=== PATIENT | female | born 1995 | race Caucasian/White ===

== ENCOUNTER 2021-08-17 11:05 | Emergency (ER) | payer OTHER, SELFPAY ==
--- NOTE | 2021-08-17 11:17 | ED.FEMALEGU ---
HPI - Female Genitourinary General Chief complaint: Urogenital-Female Stated complaint: uti symptoms Time Seen by Provider: 08/17/21 11:10 Source: patient and RN notes reviewed History of Present Illness HPI Narrative: Patient is a 25-year-old female who presents the urgent care with complaints of burning, frequency and urgency of urination. Patient states that started approximately 3 to 4 days ago. Denies of any recurrent UTIs. Denies of any blood in the urine, fever, vomiting, or abdominal pain. Patient states she has had some nausea this morning. States that she does have an IUD. Patient has not taken anything [id number] for her symptoms. No other acute complaints. No acute distress noted. Patient aware of the plan of care. Some parts of this dictation were generated by voice recognition software and may contain typographical and/or grammatical inaccuracies. Related Data Allergies Allergy/AdvReac Type Severity Reaction Status Date / Time amoxicillin Allergy Unknown Skin Verified 08/17/21 11:24 Reaction Penicillins Allergy Unknown rash Verified 08/17/21 11:24 AMOXICILLIN TRIHYDRATE Allergy Unknown NKA Uncoded 08/17/21 11:24 Review of Systems Review of Systems: CONSTITUTIONAL: Denies fever, chills, or sweats. EYES: Denies visual changes, redness, or discharge. ENT: Denies rhinorrhea, congestion, sore throat, or otalgia. CARDIOVASCULAR: Denies chest pain, palpitations, or edema. RESPIRATORY: Denies cough or dyspnea. GASTROINTESTINAL: Denies abdominal pain, nausea, vomiting, or diarrhea. GENITOURINARY: Reports urgency, frequency and dysuria SKIN: Denies rash or itching. MUSCULOSKELETAL: Denies back pain, joint pain, or myalgia. NEUROLOGIC: Denies headache, numbness, or weakness. All other systems reviewed are negative, except as documented in HPI. [facility] Past Medical History Medical History (Updated 08/17/21 @ 11:35 by GERMAN Rosa) Ulcerative colitis Family History Family History Other Depression Hypertension Malignant neoplasm of prostate Social History Social History Smoking packs per day: 0.5 Smoking cigarettes per day: 10.0 Smoking status: Current every day smoker Tobacco type: cigarettes Alcohol intake: current Comments At the time of my signature, I reviewed and agree with the nursing past medical, surgical, social, and family history. There is no relevant family history pertinent to the patient complaint. Exam Narrative: GENERAL: This is a well-nourished, well-developed patient, in no apparent distress. HEAD: normocephalic, atraumatic. EYES: PERRL. Sclera clear/white. Vision is grossly intact. EARS: External ears normal NOSE: External nose normal with no obvious nasal discharge, nares without redness, no rhinorrhea. THROAT: Mucous membranes moist NECK: Neck supple CARDIOVASCULAR: Regular rate and rhythm without murmurs, gallops, or rubs. RESPIRATORY: Clear to auscultation. Breath sounds equal bilaterally. No wheezes, rales, or rhonchi. GASTROINTESTINAL: Abdomen soft, non-tender, nondistended. SKIN: warm, intact with no suspicious lesions or rash, good texture and turgor. NEURO: awake, alert, and oriented to person, place and time. There were no obvious focal neurologic abnormalities. EXTREMITIES: No clubbing, cyanosis, or edema. BACK: Negative bilateral CVA tenderness Course Course Level of Care: Express Care Visit Vital Signs Vital signs: Vital Signs Temperature 97.4 F L 08/17/21 11:18 Pulse Rate 98 08/17/21 11:18 Respiratory Rate 18 08/17/21 11:18 Blood Pressure 129/90 08/17/21 11:18 Pulse Oximetry 100 08/17/21 11:18 Temperature 97.4 F L 08/17/21 11:18 Pulse Rate 98 08/17/21 11:18 Respiratory Rate 18 08/17/21 11:18 Blood Pressure 129/90 08/17/21 11:18 Pulse Oximetry 100 08/17/21 11:18 Reviewed M
[2021-08-17 11:18] VITALS: BP 129/90; PULSE 98; RESP 18; TEMP 36.3; O2SAT 100
== END 2021-08-17 11:36 | disposition home or self-care (01) ==
PROVIDERS: Emergency Provider Nurse Practitioner Family; PCP Family Medicine
DX: N39.0 Urinary tract infection, site not specified (principal); F17.210 Nicotine dependence, cigarettes, uncomplicated
CPT/HCPCS: 81003; 87077; 87086; 87186; 99213; G0463

== ENCOUNTER 2021-11-27 15:59 | Emergency (ER) | payer OTHER, SELFPAY ==
--- NOTE | ~2021-11-27 | XR_ITS ---
EXAMINATION: XR chest 2V DATE: 11/27/2021 17:29 INDICATION: Cough and shortness of breath TECHNIQUE: PA and lateral views of the chest are obtained. COMPARISON: 01/13/2014 FINDINGS: The lungs are free of acute opacities. No pleural effusion or pneumothorax. The cardiomedia stinal silhouette is normal. There is mild thoracic spondylosis. IMPRESSION: 1. No acute cardiopulmonary abnormality. Reviewed, dictated and finalized at location A.
[2021-11-27 16:17] VITALS: BP 136/73; PULSE 86; RESP 20; TEMP 36.3; O2SAT 100
[2021-11-27 17:12] LABS: Glucose Point of Care 99 mg/dl (65-105)
--- NOTE | 2021-11-27 17:27 | ED.URI ---
HPI - URI/Sore Throat General Chief Complaint: Upper Respiratory Infection Stated Complaint: hard to breathe, sore throat, feel like pasing out Time Seen by Provider: 11/27/21 16:39 History of Present Illness HPI Narrative: 26-year-old female presented the emergency room for multiple complaints. Patient states for the past 3 days she has had difficulty breathing, intermittent productive cough, no sore throat, and occasionally feels like she is going to pass out. Patient denies any sinus congestion, postnasal drip or fevers. Patient states she recently stopped smoking, to replace it with vaping. Related Data Allergies Allergy/AdvReac Type Severity Reaction Status Date / Time amoxicillin Allergy Unknown Skin Verified 08/17/21 11:24 Reaction Penicillins Allergy Unknown rash Verified 08/17/21 11:24 AMOXICILLIN TRIHYDRATE Allergy Unknown NKA Uncoded 08/17/21 11:24 Review of Systems Review of Systems: CONSTITUTIONAL: Denies fever, chills, or sweats. EYES: Denies visual changes, redness, or discharge. ENT: Reports sore throat CARDIOVASCULAR: Denies chest pain, palpitations, or edema. RESPIRATORY: Reports dyspnea. GASTROINTESTINAL: Denies abdominal pain, nausea, vomiting, or diarrhea. GENITOURINARY: Denies dysuria or hematuria. SKIN: Denies rash or itching. MUSCULOSKELETAL: Denies back pain, joint pain, or myalgia. NEUROLOGIC: Denies headache, numbness, dizziness, or weakness. PSYCHIATRIC: Denies anxiety or depression. [facility] Past Medical History Medical History (Updated 11/27/21 @ 18:01 by Tio Pearce APRN) Ulcerative colitis Family History Family History Other Depression Hypertension Malignant neoplasm of prostate Social History Social History Smoking packs per day: 0.5 Smoking cigarettes per day: 10.0 Smoking status: Current every day smoker Tobacco type: cigarettes Alcohol intake: current Exam Narrative: GENERAL: Well-appearing, well-nourished, no physical limitations, and in no acute distress. HEAD: Normocephalic, atraumatic. EYES: Conjunctivae normal, PERRLA and EOMI. ENT: External nose normal, Nares clear, no rhinorrhea or epistaxis. Mucous membranes moist. Oropharynx without tonsillar hypertrophy exudate or other lesions. External ears normal, bilateral TMs normal bilaterally NECK: Supple. No adenopathy or masses. CHEST: Clear to auscultation. No respiratory distress. No wheezes rales or rhonchi. No tenderness. HEART: Regular rate and rhythm. No murmur heard. Normal peripheral pulses EXTREMITIES: Normal range of motion. No edema. No clubbing or cyanosis SKIN: Warm, dry, no rash. No noted wounds NEURO: No focal deficits. Alert and oriented x3. MAEW. CN's II-XI intact bilaterally, normal gait PSYCH: Cooperative. Normal mood and affect. Appears anxious Course Vital Signs Vital signs: Vital Signs Temperature 36.3 C L 11/27/21 16:17 Pulse Rate 86 11/27/21 16:17 Respiratory Rate 20 11/27/21 16:17 Blood Pressure 136/73 11/27/21 16:17 Pulse Oximetry 100 11/27/21 16:17 Oxygen Delivery Room Air 11/27/21 16:17 Temperature 36.3 C L 11/27/21 16:17 Pulse Rate 86 11/27/21 16:17 Respiratory Rate 20 11/27/21 16:17 Blood Pressure 136/73 11/27/21 16:17 Pulse Oximetry 100 11/27/21 16:17 Oxygen Delivery Room Air 11/27/21 18:02 MDM - URI/Sore Throat Lab Data Labs: Lab Results 11/27/21 11/27/21 Range/Units 16:58 17:10 POC Capillary Glucose 99 (65-105) mg/dl SARS-CoV-2 RNA (RT-PCR) Negative Discharge Plan Discharge Clinical Impression: Upper respiratory infection, Viral infection Patient Disposition: Home, Self-Care Condition: Stable Instructions: Antibiotic Form, Viral Syndrome (ED) Additional Instructions: Tylenol and ibuprofen as needed. I recommend taking pseudoephedrine for sinus congestion Muc
[2021-11-27 17:40] LABS: SARS-CoV-2 RNA PCR Negative
== END 2021-11-27 18:27 | disposition home or self-care (01) ==
LOC: ANHED 18:16
PROVIDERS: Emergency Provider Nurse Practitioner Family; PCP Family Medicine
DX: J06.9 Acute upper respiratory infection, unspecified (principal); Z20.822 Contact with and (suspected) exposure to COVID-19; K51.90 Ulcerative colitis, unspecified, without complications; F17.290 Nicotine dependence, other tobacco product, uncomplicated
CPT/HCPCS: 71046; 82948; 96372; 99283; C9803; J1100; U0003; U0005

== ENCOUNTER 2022-06-24 09:00 | Outpatient (NON) | payer OTHER, SELFPAY | END 2022-06-24 09:01 | disposition home or self-care (01) | PROVIDERS: PCP Family Medicine; Visit Provider Internal Medicine Gastroenterology | DX: K51.90 Ulcerative colitis, unspecified, without complications (principal) | CPT/HCPCS: 88305 ==

== ENCOUNTER 2022-06-24 12:27 | Day surgery (SDC) | payer OTHER, SELFPAY ==
[2022-06-06 12:03] VITALS: BMI 36.5
[2022-06-12 10:51] VITALS: BMI 36.9
--- NOTE | 2022-06-12 10:54 | PC.NURSE ---
PT STATES SHE TAKES HER DAILY MEDICATIONS AT 0300 WITH FOOD. PT STATE SHE WILL NOT TAKE ANY MEDS DAY OF PROCEDURE DUE TO BEING WITHOUT FOOD WITH COLON PREP.
--- NOTE | 2022-06-24 13:26 | WPDANESEPPF ---
Anes - Initial Pre Proc Eval Procedure: Operation Date: 06/24/22 14:30 Proposed Procedures p Diagnostic Colonoscopy - Alex Phillips MD Date/Time: 06/24/22 13:26 Surgeon: Alex Phillips MD Pre Op Diagnosis: Ulcerative Colitis and Rectal Bleeding Patient Data Age: 26 Gender: F Height: 1.7 m Weight: 107 kg Allergies Allergy/AdvReac Type Severity Reaction Status Date / Time amoxicillin Allergy Unknown Rash Verified 06/12/22 10:36 Penicillins Allergy Unknown rash Verified 06/12/22 10:36 Home Medications Medication Instructions Recorded Confirmed Type levonorgestrel 21 mcg/24 hours (8 1 device intrauterine ONCE 05/10/22 06/12/22 History yrs) 52 mg intrauterine device (Mirena) azathioprine 50 mg tablet 150 mg PO DAILY #90 tabs 06/05/22 06/12/22 Rx prednisone 5 mg tablet 20 mg PO DAILY #70 tabs 06/05/22 06/12/22 Rx sodium,potassium,mag sulfates 17.5 See Rx Instructions PO .COMPLEX 06/06/22 Rx gram-3.13 gram-1.6 gram oral soln #354 mL (Suprep Bowel Prep Kit) esomeprazole magnesium 20 mg 20 mg PO DAILY 06/12/22 06/12/22 History capsule,delayed release (Nexium) multivitamin with minerals-folic 1 tablet PO DAILY 06/12/22 06/12/22 History acid 0.4 mg tablet Patient hx anesthesia problems: none Family hx anesthesia problems: none Results Review: All pre-operative results and documents have been reviewed as part of the pre-operative evaluation. [facility] Past Medical History Medical History (Updated 06/24/22 @ 13:28 by Champ Daniel MD) Obesity Smoker Ulcerative colitis Family History Family History Other Depression Hypertension Malignant neoplasm of prostate Social History Social History (Updated 06/05/22 @ 14:48 by Gertrudis Jolly CMA) Smoking packs per day: 1 Smoking cigarettes per day: 20.0 Years smoked: 6 Smoking pack-years: 6.00 Smoking status: Current every day smoker Tobacco type: cigarettes and e-cigarettes/vaping Alcohol intake: never Substance use: never Substance use type: does not use Lack of Transportation: No Lack of Food: Never True Current Housing: I Have Housing Concerned About Future Housing: No Difficulty Paying Gas/Electric Bills: No Difficulty Paying for Meds: No Currently Unemployed: YES Education: High School Diploma/GED Difficulty w/ Childcare or Family Care: No Living arrangements: with family Spiritual care concerns: No Anes - Eval Final PreProcedure Day of Procedure 06/24/22 13:26 Patient weight: obese Heart: regular rate and rhythm Lungs: clear to auscultation and normal air movement Airway: Mallampati scale class II Neurological: alert and oriented Last oral intake: >/= 8 hours ASA classification: III Emergent: no Anesthetic plan: proceed Anesthesia type and monitoring: general GIVS Results Review: All pre-operative results and documents have been reviewed as part of the pre-operative evaluation. Informed Consent: The patient's anesthetic plan and its attendant risks and benefits were discussed with the patient/family/POA. Questions were solicited and answers provided to the satisfaction of the patient/family/POA.
[2022-06-24 13:33] VITALS: BP 123/76; PULSE 76; RESP 18; TEMP 36.7; O2SAT 100
[2022-06-24] MEDS: LACTATED RINGERS 1,000 ML 150 ML IV CONT (13:43)
--- NOTE | 2022-06-24 13:49 | WPDHPUPDATE1 ---
History and Physical Update Update Date/Time: 06/24/22 13:49 History and Physical has been reviewed, including an updated exam of the patient. There are NO changes in the patient's condition. Risks, benefits, and alternatives have been discussed and questions answered. Patient agrees to proceed with procedure. patient notes no additional bleeding since starting prednisone. She did take a suppository once [id number] Anusol that seemed to help. She has not yet obtained any lab work that was previously recommended.
[2022-06-24 15:59] VITALS: BP 99/61; PULSE 83; RESP 20; O2SAT 100
--- NOTE | 2022-06-24 16:06 | WPDANESPN ---
Anes - Prog Note Post-Op Date/Time: 06/24/22 16:06 Cardiovascular status: normal Respiratory status: normal Airway patency: baseline Mental status: baseline Post-Op hydration status: normal Vital Signs: Last Vital Signs Temp 36.7 C 06/24/22 13:33 Pulse 76 06/24/22 13:33 Resp 18 06/24/22 13:33 BP 123/76 06/24/22 13:33 Pulse Ox 100 06/24/22 13:33 O2 Del Method Room Air 06/24/22 13:33 Pain Score (VAS): 0 I/O: Intake & Output 06/24/22 06/24/22 06/24/22 07:59 15:59 23:59 Intake Total 500 Balance 500 Post-procedural complaints: none Patient Feedback: Patient satisfied with anesthetic care.
[2022-06-24 16:09] VITALS: BP 126/65; PULSE 74; RESP 20; O2SAT 100
[2022-06-24 16:19] VITALS: BP 109/73; PULSE 75; RESP 20; O2SAT 100
== END 2022-06-24 16:40 | disposition home or self-care (01) ==
PROVIDERS: PCP Family Medicine; Visit Provider Internal Medicine Gastroenterology
PROC: 0DJD8ZZ Inspection of Lower Intestinal Tract, Via Natural or Artificial Opening Endoscopic (ICD-10-PCS; CPT 45378; principal; 2022-06-24 14:30)
DX: K51.90 Ulcerative colitis, unspecified, without complications (principal)
CPT/HCPCS: 45380

== ENCOUNTER 2022-07-23 10:44 | Outpatient (CLI) | payer OTHER, SELFPAY ==
[2022-07-23 19:10] LABS: Basophils Percent Auto 0.8 % (0.2-1.2); Eosinophils Absolute Auto 0.1 K/mm3 (0-0.3); Eosinophils Percent Auto 2.7 % (0-4.4); Hematocrit 33.4 % (37.0-47.0); Hemoglobin 10.8 g/dL (12.0-15.0); Immature Granulocyte Absolute 0.02 K/mm3 (0.00-0.031); Immature Granulocyte Percent A 0.4 % (0-0.5); Lymphocytes Percent Auto 24.9 % (18.3-44.2); Mean Corpuscular HGB Conc 32.3 g/dl (32-36); Mean Corpuscular Hemoglobin 29.7 pg (26-34); Mean Corpuscular Volume 91.8 fl (80-100); Mean Platelet Volume 9.7 fl (7.4-10.4); Monocytes Absolute Auto 0.2 K/mm3 (0.1-0.6); Neutrophils Absolute Auto 3.5 K/mm3 (1.3-6.7); Neutrophils Percent Auto 67.2 % (45.5-73.1); Platelet Count Result 297 k/mm3 (150-375); Red Blood Count 3.64 M/mm3 (4.2-5.4); Red Cell Distribution Width 18.3 % (11.5-14.5); White Blood Count 5.2 K/mm3 (4.5-10.0)
[2022-07-23 19:28] LABS: Alanine Aminotransferase 19 U/L (6-35); Albumin Level 4.3 g/dL (3.5-5.1); Alkaline Phosphatase 63 U/L (38-126); Anion Gap 8 mmol/L (8-16); Aspartate Amino Transferase 26 U/L (14-36); Bilirubin,Total 0.7 mg/dL (0.2-1.3); Blood Urea Nitrogen 7 mg/dL (7-17); Carbon Dioxide 26 mmol/L (22-30); Chloride 104 mmol/L (98-107); Estimated Glomerular Filt Rate > 60; Glucose 84 mg/dL (65-110); Potassium 3.7 mmol/L (3.4-5.0); Sodium 138 mmol/L (137-145)
[2022-08-05 13:05] LABS: TPMT Activity 6
== END 2022-07-23 10:45 | disposition home or self-care (01) ==
LOC: ANHGOSHLAB 10:45
PROVIDERS: PCP Family Medicine; Visit Provider Internal Medicine Gastroenterology
DX: K63.89 Other specified diseases of intestine (principal)
CPT/HCPCS: 36415; 80053; 82657; 85025

== ENCOUNTER 2022-08-05 12:36 | Emergency (ER) | payer OTHER, SELFPAY ==
--- NOTE | 2022-08-05 12:40 | ED.URI ---
HPI - URI/Sore Throat General Chief Complaint: Upper Respiratory Infection Stated Complaint: sore throat,lt ear pain Time Seen by Provider: 08/05/22 13:10 Source: patient and RN notes reviewed Mode of arrival: ambulatory Limitations: no limitations History of Present Illness HPI Narrative: 26-year-old female presents concern for 3 day history of left earache, sore throat. She reports feels like her ear is full. She denies fever, aches, chills, sweats. She denies known sick contacts. She reports she took Tylenol without relief MD elicited complaint: sore throat Related Data Home Medications Medication Instructions Recorded Confirmed levonorgestrel 21 mcg/24 hours (8 1 device intrauterine ONCE 05/10/22 08/05/22 yrs) 52 mg intrauterine device (Mirena) esomeprazole magnesium 20 mg 20 mg PO DAILY 06/12/22 08/05/22 capsule,delayed release (Nexium) Allergies Allergy/AdvReac Type Severity Reaction Status Date / Time amoxicillin Allergy Unknown Rash Verified 08/05/22 12:43 Penicillins Allergy Unknown rash Verified 08/05/22 12:43 Review of Systems Review of Systems: CONSTITUTIONAL: Denies malaise, chills, sweats, or fever. EYES: Denies visual changes, redness, or discharge. ENT: Denies rhinorrhea, congestion, sinus pain. Reports otalgia and sore throat. CARDIOVASCULAR: Denies chest pain, palpitations, or edema. RESPIRATORY: Denies cough. Denies dyspnea. GASTROINTESTINAL: Denies abdominal pain, nausea, vomiting, diarrhea SKIN: Denies rash or itching. MUSCULOSKELETAL: Denies myalgia. NEUROLOGIC: Denies headache. All systems reviewed & are unremarkable except as noted in HPI and below PMFSH Past Medical History Medical History (Updated 08/05/22 @ 13:07 by Melina Saeed NP) Obesity Smoker Ulcerative colitis Family History Family History Other Depression Hypertension Malignant neoplasm of prostate Social History Social History (Updated 06/05/22 @ 14:48 by Gertrudis Jolly CMA) Smoking packs per day: 1 Smoking cigarettes per day: 20.0 Years smoked: 6 Smoking pack-years: 6.00 Smoking status: Current every day smoker Tobacco type: cigarettes and e-cigarettes/vaping Alcohol intake: never Substance use: never Substance use type: does not use Lack of Transportation: No Lack of Food: Never True Current Housing: I Have Housing Concerned About Future Housing: No Difficulty Paying Gas/Electric Bills: No Difficulty Paying for Meds: No Currently Unemployed: YES Education: High School Diploma/GED Difficulty w/ Childcare or Family Care: No Living arrangements: with family Spiritual care concerns: No Comments At time of signature, agree with nursing past medical, surgical, social and family history. There is no relevant family history pertinent to the presenting complaint Exam Narrative: GENERAL: Well-appearing, well-nourished, and in no acute distress. HEAD: Normocephalic EYES: PERRLA, conjunctivae clear ENT: Nares clear, postnasal discharge. Mucous membranes moist. TM pearly damon with dull light reflex bilaterally; no tragal tenderness. Oropharynx not erythematous without lesions. Tonsils not enlarged and without exudate, no drooling, no hoarseness, no trismus, uvula midline. NECK: Supple. No lymphadenopathy CHEST: Clear to auscultation, breath sounds equal. No wheezing, rhonchi, rales, or stridor. No respiratory distress, speaks in full sentences. HEART: Regular rate and rhythm. No murmur heard. SKIN: Warm, dry, no rash. NEURO: Alert and oriented x3. PSYCH: Normal mood and affect Course Course Emergency Course: Patient is aware of diagnosis, understands and agrees to treatment plan. Anticipatory guidance given. Patient agrees to follow-up as directed and is aware of reasons to seek care at the emergency department. Portions of this record may have been created with voice recognition software
[2022-08-05 12:42] VITALS: BP 118/70; PULSE 92; RESP 18; TEMP 36.7; O2SAT 100
== END 2022-08-05 13:12 | disposition home or self-care (01) ==
PROVIDERS: Emergency Provider Nurse Practitioner; PCP Family Medicine
DX: J06.9 Acute upper respiratory infection, unspecified (principal); F17.210 Nicotine dependence, cigarettes, uncomplicated; F17.290 Nicotine dependence, other tobacco product, uncomplicated; E66.9 Obesity, unspecified; Z68.36 Body mass index [BMI] 36.0-36.9, adult
CPT/HCPCS: 87081; 87880; 99213; G0463

== ENCOUNTER 2022-11-06 08:58 | Outpatient (CLI) | payer OTHER, SELFPAY ==
[2022-11-06 18:51] LABS: Basophils Percent Auto 0.8 % (0.2-1.2); Eosinophils Absolute Auto 0.4 K/mm3 (0-0.3); Eosinophils Percent Auto 7.5 % (0-4.4); Hematocrit 33.5 % (37.0-47.0); Immature Granulocyte Absolute 0.01 K/mm3 (0.00-0.031); Immature Granulocyte Percent A 0.2 % (0-0.5); Lymphocytes Absolute Auto 1.18 K/mm3 (0.9-3.2); Lymphocytes Percent Auto 23.3 % (18.3-44.2); Mean Corpuscular HGB Conc 32.8 g/dl (32-36); Mean Corpuscular Hemoglobin 34.3 pg (26-34); Mean Corpuscular Volume 104.4 fl (80-100); Mean Platelet Volume 9.9 fl (7.4-10.4); Monocytes Absolute Auto 0.2 K/mm3 (0.1-0.6); Monocytes Percent Auto 4.5 % (2.6-8.5); Neutrophils Absolute Auto 3.2 K/mm3 (1.3-6.7); Neutrophils Percent Auto 63.7 % (45.5-73.1); Platelet Count Result 290 k/mm3 (150-375); Red Blood Count 3.21 M/mm3 (4.2-5.4); Red Cell Distribution Width 13.2 % (11.5-14.5); White Blood Count 5.1 K/mm3 (4.5-10.0)
[2022-11-15 13:22] LABS: TPMT Activity 9
== END 2022-11-06 08:59 | disposition home or self-care (01) ==
LOC: ANHGOSHLAB 09:00
PROVIDERS: PCP Family Medicine; Visit Provider Internal Medicine Gastroenterology
DX: K63.89 Other specified diseases of intestine (principal); K51.90 Ulcerative colitis, unspecified, without complications
CPT/HCPCS: 36415; 82657; 85025

== ENCOUNTER 2022-12-13 10:54 | Emergency (ER) | payer OTHER, SELFPAY ==
--- NOTE | 2022-12-13 10:57 | ED.DENTAL ---
HPI - Dental/Oral General Chief complaint: Dental/Oral Stated complaint: Tooth ache Time Seen by Provider: 12/13/22 10:57 Source: patient, RN notes reviewed and old records reviewed Mode of arrival: ambulatory Limitations: no limitations History of Present Illness HPI Narrative: 27-year-old female presents to the [facility] with concerns for it dental infection to the left lower posterior molar. Reports pain. Made an appointment with her dental provider a week from today. No facial swelling or increased erythema. Related Data Home Medications Medication Instructions Recorded Confirmed esomeprazole magnesium 20 mg 20 mg PO DAILY 06/12/22 12/13/22 capsule,delayed release (Nexium) azathioprine 50 mg tablet (Imuran) 150 mg PO DAILY 12/13/22 12/13/22 Allergies Allergy/AdvReac Type Severity Reaction Status Date / Time amoxicillin Allergy Unknown Rash Verified 11/13/22 15:21 Penicillins Allergy Unknown rash Verified 11/13/22 15:21 Review of Systems Review of Systems: All systems reviewed & are unremarkable except as noted in HPI and below Constitutional: Constitutional: Reports no additional constitutional complaints Eyes: Eyes: Reports no additional eye complaints ENT: Reports as per HPI and Reports dental pain Cardiovascular: Cardiovascular: Reports no additional cardiovascular complaints, Denies chest pain and Denies dyspnea Respiratory: Respiratory: Reports no additional respiratory complaints, Denies chest congestion, Denies cough and Denies dyspnea Gastrointestinal: Gastrointestinal: Reports no additional gastrointestinal complaints, Denies abdominal pain, Denies nausea and Denies vomiting Musculoskeletal: Musculoskeletal: Reports no additional musculoskeletal complaints Integumentary/Breasts: Skin/Breast: Reports system reviewed and no additional complaints, except as docu Neurologic: Reports system reviewed and no additional complaints, except as documented Psychiatric: Psychiatric: Reports no additional psychiatric complaints Allergic/Immunologic: Allergic/Immunologic: Reports no additional allergic/immunologic complaints [facility] Past Medical History Medical History Obesity Smoker Ulcerative colitis Family History Family History Other Depression Hypertension Malignant neoplasm of prostate Social History Social History Smoking packs per day: 1 Smoking cigarettes per day: 20.0 Years smoked: 6 Smoking pack-years: 6.00 Smoking status: Current every day smoker Tobacco type: cigarettes and e-cigarettes/vaping Alcohol intake: never Substance use: never Substance use type: does not use Lack of Transportation: No Lack of Food: Never True Current Housing: I Have Housing Concerned About Future Housing: No Difficulty Paying Gas/Electric Bills: No Difficulty Paying for Meds: No Currently Unemployed: YES Education: High School Diploma/GED Difficulty w/ Childcare or Family Care: No Living arrangements: with family Spiritual care concerns: No Comments At the time of my signature, I reviewed and agree with the nursing past medical, surgical, social, and family history. There is no relevant family history pertinent to the patient complaint. Exam Const: General: cooperative, healthy appearing, comfortable, no acute distress, well developed, alert and well nourished Nutritional Appearance: well nourished and obese Orientation/consciousness: patient oriented x3 Limitations: no limitations HENMT: Head: normal to inspection Ears: hearing grossly normal bilaterally and external ears normal Face/Nose/Sinus: Normal external nose present, Normal nares present, Normal nasal mucous membranes and turbinates present and normal facial exam Face and sinus: normal facial exam Mouth: Yes Normal oral and palatal
[2022-12-13 11:04] VITALS: BP 122/80; PULSE 86; RESP 16; TEMP 36.6; O2SAT 100
== END 2022-12-13 11:14 | disposition home or self-care (01) ==
PROVIDERS: Emergency Provider Nurse Practitioner; PCP Family Medicine
DX: K08.89 Other specified disorders of teeth and supporting structures (principal); F17.210 Nicotine dependence, cigarettes, uncomplicated; F17.290 Nicotine dependence, other tobacco product, uncomplicated; E66.9 Obesity, unspecified; Z68.34 Body mass index [BMI] 34.0-34.9, adult
CPT/HCPCS: 99213; G0463

== ENCOUNTER 2023-02-17 13:43 | Outpatient (CLI) | payer OTHER, SELFPAY ==
[2023-02-17 19:33] LABS: Basophils Percent Auto 0.5 % (0.2-1.2); Eosinophils Absolute Auto 0.1 K/mm3 (0-0.3); Eosinophils Percent Auto 2.3 % (0-4.4); Hematocrit 33.2 % (37.0-47.0); Hemoglobin 10.9 g/dL (12.0-15.0); Immature Granulocyte Absolute 0.01 K/mm3 (0.00-0.031); Immature Granulocyte Percent A 0.2 % (0-0.5); Lymphocytes Percent Auto 20.8 % (18.3-44.2); Mean Corpuscular HGB Conc 32.8 g/dl (32-36); Mean Corpuscular Hemoglobin 32.3 pg (26-34); Mean Corpuscular Volume 98.5 fl (80-100); Mean Platelet Volume 9.5 fl (7.4-10.4); Monocytes Absolute Auto 0.4 K/mm3 (0.1-0.6); Monocytes Percent Auto 6.3 % (2.6-8.5); Neutrophils Percent Auto 69.9 % (45.5-73.1); Platelet Count Result 337 k/mm3 (150-375); Red Blood Count 3.37 M/mm3 (4.2-5.4); Red Cell Distribution Width 12.5 % (11.5-14.5); White Blood Count 5.8 K/mm3 (4.5-10.0)
== END 2023-02-17 13:44 | disposition home or self-care (01) ==
LOC: ANHGOSHLAB 13:45
PROVIDERS: PCP Family Medicine; Visit Provider Internal Medicine Gastroenterology
DX: K41.90 Unilateral femoral hernia, without obstruction or gangrene, not specified as recurrent (principal)
CPT/HCPCS: 36415; 85025

== ENCOUNTER 2023-05-26 15:01 | Outpatient (CLI) | payer OTHER, SELFPAY ==
[2023-05-26 18:58] LABS: Hematocrit 34.9 % (37.0-47.0); Hemoglobin 11.2 g/dL (12.0-15.0); Mean Corpuscular HGB Conc 32.1 g/dl (32-36); Mean Corpuscular Hemoglobin 32.9 pg (26-34); Mean Corpuscular Volume 102.6 fl (80-100); Mean Platelet Volume 9.5 fl (7.4-10.4); Platelet Count Result 346 k/mm3 (150-375); Red Cell Distribution Width 14.3 % (11.5-14.5); White Blood Count 3.9 K/mm3 (4.5-10.0)
[2023-05-26 19:33] LABS: Erythrocyte Sedimentation Rate 57 mm/hr (0-20); Hepatitis B Surface Antigen Negative (Negative)
[2023-05-26 19:51] LABS: Hepatitis B Surface Anti Res Negative
[2023-05-26 20:48] LABS: Alanine Aminotransferase 13 U/L (6-35); Albumin Level 4.5 g/dL (3.5-5.1); Alkaline Phosphatase 61 U/L (38-126); Anion Gap 7 mmol/L (8-16); Aspartate Amino Transferase 35 U/L (14-36); Bilirubin,Total 0.8 mg/dL (0.2-1.3); Blood Urea Nitrogen 6 mg/dL (7-17); CRP < 0.5 mg/dL (<1.0); Calcium 9.7 mg/dL (8.4-10.2); Carbon Dioxide 30 mmol/L (22-30); Chloride 104 mmol/L (98-107); Estimated Glomerular Filt Rate > 60; Glucose 92 mg/dL (65-110); Potassium 3.7 mmol/L (3.4-5.0); Sodium 141 mmol/L (137-145)
[2023-05-27 12:44] LABS: Iron 73 ug/dL (37-170)
[2023-05-27 12:53] LABS: Percent Iron Saturation 24 % (20-50)
[2023-05-27 13:57] LABS: Folic Acid > 20.0 ng/mL (2.76->20)
[2023-05-28 16:47] LABS: NIL 0.01 IU/mL; Quantiferon TB Plus, 1T NEGATIVE (NEGATIVE)
[2023-05-29 03:44] LABS: Hepatitis B Core Ab Total Nonreactive (Nonreactive)
== END 2023-05-26 15:02 | disposition home or self-care (01) ==
LOC: ANHGOSHLAB 15:03
PROVIDERS: PCP Family Medicine; Visit Provider Nurse Practitioner Family
DX: K51.90 Ulcerative colitis, unspecified, without complications (principal); Z11.59 Encounter for screening for other viral diseases; Z79.899 Other long term (current) drug therapy; N91.2 Amenorrhea, unspecified
CPT/HCPCS: 36415; 80053; 82607; 82728; 82746; 83540; 83550; 85027; 85652; 86140; 86480; 86704; 86706; 87340

== ENCOUNTER 2023-12-01 09:00 | Emergency (ER) | payer MEDICAID, SELFPAY ==
--- NOTE | 2023-12-01 09:03 | ED.FEMALEGU ---
HPI - Female Genitourinary General Chief complaint: Urogenital-Female Stated complaint: Uti Symptoms Time Seen by Provider: 12/01/23 09:03 Source: patient Mode of arrival: ambulatory Limitations: no limitations History of Present Illness HPI Narrative: Matilde is a 28 year old female patient presenting to the clinic today with c/o possible UTI x3 days. She reports she is having burning, frequency, and urgency. Denies any abdomen pain, n/v, or back pain. Related Data Home Medications Medication Instructions Recorded Confirmed esomeprazole magnesium 20 mg 20 mg PO DAILY 06/12/22 12/01/23 capsule,delayed release (Nexium) drospirenone (contraceptive) 4 mg 1 tablet PO DAILY 12/01/23 12/01/23 (28) tablet (Slynd) Allergies Allergy/AdvReac Type Severity Reaction Status Date / Time amoxicillin Allergy Unknown Rash Verified 12/01/23 09:04 Penicillins Allergy Unknown rash Verified 12/01/23 09:04 Review of Systems Review of Systems: Pertinent positives per HPI. Patient denies any fever, chills, rash, headache, visual changes, dizziness, cough, runny nose, sore throat, shortness of breath, chest pain, palpitations, nausea, vomiting, diarrhea, constipation, abdominal pain. [facility] Past Medical History Medical History Obesity Smoker Ulcerative colitis Family History Family History Other Depression Hypertension Malignant neoplasm of prostate Social History Social History Smoking packs per day: 1 Smoking cigarettes per day: 20.0 Years smoked: 6 Smoking pack-years: 6.00 Smoking status: Current every day smoker Tobacco type: cigarettes and e-cigarettes/vaping Alcohol intake: never Substance use: never Substance use type: does not use Lack of Transportation: No Lack of Food: Never True Current Housing: I Have Housing Concerned About Future Housing: No Difficulty Paying Gas/Electric Bills: No Difficulty Paying for Meds: No Currently Unemployed: YES Education: High School Diploma/GED Difficulty w/ Childcare or Family Care: No Living arrangements: with family Spiritual care concerns: No Comments At the time of my signature, I reviewed and agree with the nursing past medical, surgical, social, and family history. There is no relevant family history pertinent to the patient complaint. Exam Narrative: General: Well-developed, well nourished, in no apparent distress. Head: Normocephalic, atraumatic. Cardio: Regular rate and rhythm, s1 and s2 normal, no murmur appreciated. Resp: Clear to auscultation bilaterally, no rhonchi, rales, wheezing or rubs. Abdomen: Soft, pliable, bowel sounds present in all quadrants, non-tender to palpation, no organomegly, no CVAT tenderness. Course Course Emergency Course: Portions of this record may have been created with voice recognition software. Level of Care: Express Care Visit Vital Signs Vital signs: Vital Signs Temperature 36.3 C L 12/01/23 09:09 Pulse Rate 85 12/01/23 09:09 Respiratory Rate 15 12/01/23 09:09 Blood Pressure 120/77 12/01/23 09:09 Pulse Oximetry 100 12/01/23 09:09 Oxygen Delivery Room Air 12/01/23 09:09 Temperature 36.3 C L 12/01/23 09:09 Pulse Rate 85 12/01/23 09:09 Respiratory Rate 15 12/01/23 09:09 Blood Pressure 120/77 12/01/23 09:09 Pulse Oximetry 100 12/01/23 09:09 Oxygen Delivery Room Air 12/01/23 09:09 Vital signs reviewed MDM - Female Genitourinary MDM Narrative Medical decision making narrative: At the time of visit patient is resting comfortably on the exam table. Patient appears to be nontoxic. Labs: UA positive for 1+ leukocyte and 2+ blood. We will send for culture. Plan: I suspect patient has UTI with hematuria. Rx for Bactrim DS was sent to the pharmacy. Sup
[2023-12-01 09:09] VITALS: BP 120/77; PULSE 85; RESP 15; TEMP 36.3; O2SAT 100
[2023-12-01 09:18] LABS: EDUAAPPEAR Clear; EDUABILI Negative; EDUABLOOD 2+; EDUACOLOR1 Yellow; EDUAGLUCOSE Negative; EDUAKETONE Negative; EDUALEUKO 1+; EDUANITRATE Negative; EDUAPH 6.5; EDUAPROTEIN Negative; EDUASPGRAVITY 1.005; EDUAUROBILI 0.2
== END 2023-12-01 09:19 | disposition home or self-care (01) ==
PROVIDERS: Emergency Provider Nurse Practitioner Family; PCP Family Medicine
DX: N30.01 Acute cystitis with hematuria (principal); F17.210 Nicotine dependence, cigarettes, uncomplicated; F17.290 Nicotine dependence, other tobacco product, uncomplicated; E66.9 Obesity, unspecified; Z68.34 Body mass index [BMI] 34.0-34.9, adult
CPT/HCPCS: 81003; 87086; 87088; 99213; G0463

== ENCOUNTER 2024-02-02 16:30 | Emergency (ER) | payer OTHER, SELFPAY ==
[2024-02-02 16:35] VITALS: BP 112/89; PULSE 80; RESP 16; TEMP 36.7; O2SAT 100
[2024-02-02 16:52] LABS: EDSTREPNEGPOS1 Negative (Negative)
--- NOTE | 2024-02-02 17:17 | ED.URI ---
HPI - URI/Sore Throat General Chief Complaint: Upper Respiratory Infection Stated Complaint: Sore Throat Time Seen by Provider: 02/02/24 17:18 Source: patient Mode of arrival: ambulatory Limitations: no limitations History of Present Illness HPI Narrative: 28-year-old female presents with complaint of sore throat, nasal congestion, postnasal drainage, cough for 3 days. Thinks she may have had fever the 1st day but did not check temp. Is taking Tylenol to treat her pain but no other of medications. Was taking allergy medications but thought it was masking her symptoms so she stopped them. Patient concern for strep throat. All systems reviewed and negative except as noted above. Related Data Home Medications Medication Instructions Recorded Confirmed esomeprazole magnesium 20 mg 20 mg PO DAILY 06/12/22 02/02/24 capsule,delayed release (Nexium) drospirenone (contraceptive) 4 mg 1 tablet PO DAILY 12/01/23 02/02/24 (28) tablet (Slynd) Allergies Allergy/AdvReac Type Severity Reaction Status Date / Time amoxicillin Allergy Unknown Rash Verified 02/02/24 16:47 Penicillins Allergy Unknown rash Verified 02/02/24 16:47 Review of Systems Review of Systems: CONSTITUTIONAL: Denies fever, chills, or sweats. Reports fatigue. EYES: Denies visual changes, redness, or discharge. ENT: Reports rhinorrhea, congestion, sore throat. Denies otalgia. CARDIOVASCULAR: Denies chest pain, palpitations, or edema. RESPIRATORY: Reports cough. Denies dyspnea. GASTROINTESTINAL: Denies abdominal pain, nausea, vomiting, or diarrhea. GENITOURINARY: Denies dysuria or hematuria. SKIN: Denies rash or itching. MUSCULOSKELETAL: Denies back pain, joint pain, or myalgia. NEUROLOGIC: Denies headache, numbness, or weakness. PSYCHIATRIC: Denies anxiety or depression. All other systems reviewed are negative, except as documented in HPI. [facility] Past Medical History Medical History Obesity Smoker Ulcerative colitis Family History Family History Other Depression Hypertension Malignant neoplasm of prostate Social History Social History Smoking packs per day: 1 Smoking cigarettes per day: 20.0 Years smoked: 6 Smoking pack-years: 6.00 Smoking status: Current every day smoker Tobacco type: cigarettes and e-cigarettes/vaping Alcohol intake: never Substance use: never Substance use type: does not use Lack of Transportation: No Lack of Food: Never True Current Housing: I Have Housing Concerned About Future Housing: No Difficulty Paying Gas/Electric Bills: No Difficulty Paying for Meds: No Currently Unemployed: YES Education: High School Diploma/GED Difficulty w/ Childcare or Family Care: No Living arrangements: with family Spiritual care concerns: No Comments At time of signature, agree with nursing past medical, surgical, social and family history. There is no relevant family history pertinent to the presenting complaint. Exam Narrative: GENERAL: This is a well-nourished, well-developed patient, in no apparent distress. HEAD: normocephalic, atraumatic. EYES: PERRL. Sclera clear/white. Vision is grossly intact. EARS: External ears normal, auditory canals clear and without drainage, TMs normal without perforation. Hearing grossly intact. NOSE: External nose normal with clear postnasal drainage, mild congestion THROAT: Mucous membranes moist, mild erythema, tonsils 1+ bilaterally without exudates. Clear postnasal drainage noted. NECK: Neck supple, non-tender without lymphadenopathy, masses or thyromegaly. CARDIOVASCULAR: Regular rate and rhythm without murmurs, gallops, or rubs. RESPIRATORY: Clear to auscultation. Breath sounds equal bilaterally. No wheezes, rales, or rhonchi. SKIN: warm, Dry, intact with no suspicious les
== END 2024-02-02 17:30 | disposition home or self-care (01) ==
PROVIDERS: Emergency Provider Nurse Practitioner Family; PCP Family Medicine
DX: J06.9 Acute upper respiratory infection, unspecified (principal); R05.9 Cough, unspecified; F17.210 Nicotine dependence, cigarettes, uncomplicated; F17.290 Nicotine dependence, other tobacco product, uncomplicated; E66.9 Obesity, unspecified; Z68.32 Body mass index [BMI] 32.0-32.9, adult
CPT/HCPCS: 87081; 87880; 99213; G0463

== ENCOUNTER 2024-05-07 08:45 | Emergency (ER) | payer OTHER, SELFPAY ==
[2024-05-07 08:55] VITALS: BP 116/84; PULSE 96; RESP 16; TEMP 36.9; O2SAT 100
[2024-05-07 09:05] LABS: EDUAAPPEAR Clear; EDUABILI Negative (Negative); EDUABLOOD Trace (Negative); EDUACOLOR1 Light/Pale; EDUAGLUCOSE Negative (Negative); EDUAKETONE Negative (Negative); EDUALEUKO 2+ (Negative); EDUANITRATE Negative (Negative); EDUAPROTEIN Negative (Negative); EDUAUROBILI 0.2
--- NOTE | 2024-05-07 09:08 | ED_ITS ---
HPI - Female Genitourinary General Chief complaint: Urogenital-Female Stated complaint: UTI Symptoms Time Seen by Provider: 05/07/24 09:03 Source: patient and RN notes reviewed Mode of arrival: ambulatory Limitations: no limitations History of Present Illness HPI Narrative: Patient presents today with a 4 to five-day history of urinary urgency, frequency, dysuria, cloudy urine, with a 2 day history of suprapubic discomfort. Patient tried increasing her water intake without decrease of her symptoms. No recent antibiotic use. Related Data Home Medications ?Medication ?Instructions ?Recorded ?Confirmed ?Last Taken ?Type esomeprazole magnesium 20 mg 20 mg PO DAILY 06/12/22 03/02/24 06/12/22 03:00 History capsule,delayed release (Nexium) drospirenone (contraceptive) 4 mg 1 tablet PO DAILY 12/01/23 03/02/24 Unknown History (28) tablet (Slynd) Allergies Allergy/AdvReac Type Severity Reaction Status Date / Time amoxicillin Allergy Unknown Rash Verified 05/07/24 08:53 Penicillins Allergy Unknown rash Verified 05/07/24 08:53 Review of Systems Review of Systems: CONSTITUTIONAL: Denies body aches, fever, chills, or sweats. EYES: Denies visual changes, redness, or discharge. ENT: Denies rhinorrhea, congestion, sore throat, or otalgia. CARDIOVASCULAR: Denies chest pain, palpitations, or edema. RESPIRATORY: Denies cough or dyspnea. GASTROINTESTINAL: Denies abdominal pain, nausea, vomiting, or diarrhea. GENITOURINARY: + dysuria, urgency, frequency, cloudy urine, suprapubic discomfort SKIN: Denies rash, itching, or wounds. MUSCULOSKELETAL: Denies back pain, joint pain, or myalgia. NEUROLOGIC: Denies headache, numbness, tingling, or weakness. PSYCH: Denies depression or anxiety. [facility] Past Medical History Medical History GERD (gastroesophageal reflux disease) Anemia Smoker Obesity Ulcerative colitis Family History Family History Other Depression Hypertension Malignant neoplasm of prostate Social History Social History Smoking packs per day: 1 Smoking cigarettes per day: 20.0 Years smoked: 6 Smoking pack-years: 6.00 Smoking status: Current every day smoker Tobacco type: cigarettes and e-cigarettes/vaping Alcohol intake: never Substance use: never Substance use type: does not use Lack of Transportation: No Lack of Food: Never True Current Housing: I Have Housing Concerned About Future Housing: No Difficulty Paying Gas/Electric Bills: No Difficulty Paying for Meds: No Currently Unemployed: YES Education: High School Diploma/GED Difficulty w/ Childcare or Family Care: No Living arrangements: with family Spiritual care concerns: No Comments At time of signature, I have reviewed and agree with nursing past medical, surgical, social and family history unless otherwise noted. Please see nursing chart for further information. There is no relevant family history pertinent to the presenting complaint Exam Narrative: GENERAL: Well-appearing, well-nourished, and in no acute distress. HEAD: Normocephalic, atraumatic. EYES: EOMI. No redness or drainage. Conjunctivae normal. ENT: Mucous membranes pink and moist. NECK: Normal AROM. CHEST: No respiratory distress. Clear to auscultation. HEART: Regular rate and rhythm. No murmur appreciated. Normal peripheral pulses. ABDOMEN: Soft, nondistended, normal active bowel sounds.+ suprapubic tenderness EXTREMITIES: Normal range of motion. No edema. SKIN: Warm, dry, no rash. Capillary refill normal. Normal skin turgor. NEURO: No focal deficits. Alert and oriented x3. Gait steady. PSYCH: Normal affect. No signs of depression or anxiety. Course Course Level of Care: Express Care Visit Vital Signs Vital signs: Vital Signs Temperature 98.4 F 05/07/24 08:55 Pulse Rate 96 05/07/24 08:55 Respiratory Rate 16 05/07/24 08:55 Blood Pressure 116/84 05/07/24 08:55 Pulse Oximetry 100 05/07/24 08:55 Temperature 98.4 F 05/07/24 08:55 Pulse Rate 96 05/07/24 08:55 Respiratory Rate 16 05/07/24 08:55 Blood Pressure 116/84 05/07/24 08:55 Pulse Oximetry 100 05/07/24 08:55 Reviewed MDM - Female Genitourinary MDM Narrative Medical decision making narrative: Urinalysis shows positive leukocyte esterase and blood, consistent with UTI along with symptoms. Patient will be placed on a course of Keflex. Culture pending. Anticipatory guidance given. Differential Diagnosis Differential diagnosis: Likely urinary tract infection, vaginitis and cystitis Lab Data Attestation: I reviewed the patient's lab results. Labs: Lab Results 05/07/24 Range/Units 08:55 POC Urine Color Light/pale POC Urine Clarity Clear POC Urine pH 6.0 POC Ur Specif Hilger 1.010 POC Urine Protein Negative (Negative) POC Ur Glucose (UA) Negative (Negative) POC Urine Ketones Negative (Negative) POC Urine Blood Trace (Negative) POC Urine Nitrite Negative (Negative) POC Urine Bilirubin Negative (Negative) POC Urine Urobilinogen 0.2 POC U Leukocyte Esteras 2+ (Negative) Critical Care Time Critical Care Time Critical Care Time: No Discharge Plan Discharge Clinical Impression: Urinary tract infection Qualifiers: Urinary tract infection type: acute cystitis Hematuria presence: with hematuria Qualified Code(s): N30.01 - Acute cystitis with hematuria Patient Disposition: Home, Self-Care Condition: Stable Instructions: Antibiotic Form, Urinary Tract Infection in Women (ED) Additional Instructions: Your urine shows infection today. Take Keflex as prescribed until gone. Your urine will be sent of for a culture to identify what type of bacteria is causing your infection. If the culture shows that your medication will not get rid of your infection, you will be notified and a new antibiotic will be called in for you. If your symptoms worsen to include fever, sweats, chills, nausea, vomiting, severe abdominal or back pain, please go to the ER for further evaluation. Your blood pressure was elevated above 120/80 today at Urgent Care. This puts you above the threshold for follow up. Please schedule a followup visit with your personal physician as soon as possible, for further evaluation and treatment. Even blood pressure exceeding 120/80 may indicate pre-hypertension. Patient Language: Latvian Prescriptions: New cephalexin 500 mg capsule 500 mg PO Q6H 7 Days Qty: 28 0RF No Action Slynd 4 mg (28) tablet 1 tablet PO DAILY mesalamine 1.2 gram tablet,delayed release (DR/EC) See Rx Instructions .ROUTE .COMPLEX Qty: 120 12RF Dose Instruction: TAKE 4 TABLETS BY MOUTH EVERY DAY Rx Instructions: TAKE 4 TABLETS BY MOUTH EVERY DAY azathioprine 50 mg tablet 150 mg PO DAILY Qty: 270 3RF esomeprazole magnesium [Nexium] 20 mg Capsule,Delayed Release(Dr/Ec) 20 mg PO DAILY Follow-up/Referrals: Gold Nielsen MD [Primary Care Provider] - Time of Disposition: 09:13
== END 2024-05-07 09:16 | disposition home or self-care (01) ==
PROVIDERS: Emergency Provider Nurse Practitioner; PCP Family Medicine
DX: N30.01 Acute cystitis with hematuria (principal); K21.9 Gastro-esophageal reflux disease without esophagitis; F17.210 Nicotine dependence, cigarettes, uncomplicated; F17.290 Nicotine dependence, other tobacco product, uncomplicated
CPT/HCPCS: 81003; 87086; 87186; 99213; G0463

== ENCOUNTER 2024-05-12 03:25 | Day surgery (SDC) | payer OTHER, SELFPAY ==
[2024-05-07 10:52] VITALS: BMI 34.5
--- OUTSIDE RECORDS SUMMARY | 2024-05-12 03:28 | XMS_ITS | Encounter Summary ---
Author Organization [facility] Address [address] [place] [address] Care Team Providers Care Casing Finisher And Stuffer Name Role Phone Gold Nielsen MD Primary Care Provider [phone]- [phone] Encounter Details Date Type Department Care Team (Late st Contact Info) Description 01/01/2016 Telephone [facility] - [address] [address] Emily Alexander MD [address] [place] [id number] Social History Tobacco Use Types Packs/Day Years Used Date Smoking Tobacco: Never Alcohol Use Standard Drinks/Week Comments Not Asked 0 (1 standard drink = 0.6 oz pur e alcohol) Sex and Gender Information Value Date Recorded Sex Assigned at Not on file Gender Identity Not on file Sexual Orientation Not on file documented as of this encounter Functional Status Functional Status Response Date of Assess ment Is person deaf or have serious hearing difficult y? No 12/02/2013 Is person blind or have serious difficulty seein g? No 12/02/2013 Does person have serious dif ficulty walking/climbing stairs? No 12/02/2013 Does person have difficulty dressing/bathing? No 12/02/2013 Does person have difficulty doing errands alone? No 12/02/2013 Cognitive Status Response Date of Assessm ent Does person have difficulty concentrating/remembering/making decisions? No 12/02/2013 documented as of this encounter Miscellaneous Notes * Telephone Encounter - Stephania Rasmussen RN - 01/04/2016 4:07 PM CDT Pt reports that she has not yet turned in the stool for calprotectin, but plans to do so either this week or next. * Telephone Encounter - Luz Maria Sanchez MD - 01/04/2016 3:51 PM CDT Did matilde ever turn in calprotectin? * Telephone Encounter - Shyanne Kim RN - 01/01/2016 2:52 PM CDT Gave Matilde 's message. She voiced understanding. She saw Dr. Sanchez in September. She reports feeling good now. I will consult with Dr. Sanchez to see if she wants to do anything different. * Telephone Encounter - Shyanne Kim RN - 01/01/2016 2:42 PM CDT Left message for parent(s) to call us back. * Telephone Encounter - Emily Alexander MD - 01/01/2016 2:36 PM CDT I reviewed recent labs. Matilde has persistently elevated ESR (however lower than previous) and mild anemia. She should schedule follow up with Dr Sanchez soon for follow up. documented in this encounter Plan of Treatment Not on file documented as of this encounter Visit Diagnoses Not on filedocumented in this encounter Care Teams Casing Finisher And Stuffer Relationship Specialty Start Date End Date Gold Nielsen MD [address] [place] [phone] PCP - General Family Medicine 05/13/12 documented as of this encounter
--- OUTSIDE RECORDS SUMMARY | 2024-05-12 03:28 | XMS_ITS | Encounter Summary ---
Author Organization [facility] Address [address] [place] [address] Care Team Providers Care Store Product Demonstrator Name Role Phone Gold Nielsen MD Primary Care Provider [phone]- [phone] Reason for Visit * Reason Onset Date Comments Question 03/01/2014 Encounter Details Date Type Department Care Team (Late st Contact Info) Description 03/01/2014 Telephone [facility] - [address] [place] [address] Luz Maria Sanchez MD [address] [place] [id number] Question Social History Tobacco Use Types Packs/Day Years [...] encounter Miscellaneous Notes * Telephone Encounter - Shyanne Kim RN - 03/02/2014 9:40 AM CST Per Oma in Financial Clearance ...Per Mera @ [facility] [phone] auth is not required for [id number]. Medical records need to be sent in with claim for [id number]. ER TRUCK DRIVER * Telephone Encounter - Shyanne Kim RN - 03/02/2014 8:11 AM CST PA needed for Remicade. Information sent to DAG team. ER TRUCK DRIVER * Telephone Encounter - Sana Hensley RN - 03/01/2014 2:15 PM REEFER TRUCK DRIVER Spoke to mother who states Matilde has a red sore throat and cold. Afebrile. Plan to reschedule remicade to next week. Transferred to appt line. ER TRUCK DRIVER * Telephone Encounter - Ramona Hogan - 03/01/2014 11:30 AM CST Patient has remicade tomorrow, but has a bit of a head cold and sore throat, mom wondering if its ok for her to still come or do we need to wait? ER TRUCK DRIVER documented in this encounter Plan of Treatment Not on file documented as of this encounter Visit Diagnoses Not on filedocumented in this encounter Care Teams Store Product Demonstrator Relationship Specialty Start Date End Date Gold Nielsen MD [facility] [place] [phone] PCP - General Family Medicine 05/13/12 documented as of this encounter
--- OUTSIDE RECORDS SUMMARY | 2024-05-12 03:28 | XMS_ITS | Patient Health Summary ---
Author Organization [facility] Address [address] [place] [address] Care Team Providers Care Air Battle Manager Name Role Phone Gold Nielsen MD Primary Care Provider [phone] Note from [facility],non-owned Affiliates and Associated Physician Practices is amultiple site organization consisting of ambulatory clinics and hospital sitesin [place], [place], [place] and [place]. This disclosure is being madepursuant to the Care Everywhere program and may not contain all information available regarding this patient. Last updated 18.[facility] Allergies * Amoxicillin(Rash) -Low Criticality * Penicillins(Rash) -Low Criticality Medications * Be aware that medications may not be up to date on this document. Alwaysverify current medications with the patient. * loratadine (CLARITIN) 10 MG tablet Take 10 mg by mouth once daily * CYCLAFEM 1-35 MG-MCG tablet(Started 09/05/2015) 6 refills left * ranitidine (ZANTAC) 150 MG tablet(Started 09/18/2015) Take 1 Tab by mouth 2 times daily as needed for Heartburn 3 refills left * mupirocin (BACTROBAN) 2 % ointment(Started 05/23/2016) Apply to affected area 2 times daily * inFLIXimab (REMICADE) injection(Started 08/26/2016) 900mg IV Q 6 weeks * buPROPion SR 12hr (WELLBUTRIN-SR) 150 MG tablet Take 150 mg by mouth 2 times daily * ALPRAZolam (XANAX) 0.25 MG tablet Take 0.25 mg by mouth 3 times daily as needed for Anxiety Active Problems Problem Noted Date Diagnosed Date Colitis 05/28/2012 Chronic ulcerative colitis without complication 05/28/2012 Bloody diarrhea 05/27/2012 Microcytic anemia 05/27/2012 Immunizations * INFLUENZA VACCINE, QUADR. (FLUZONE; FLULAVAL; FLUARIX; AFLURIA QUADRIVALENT; 6MO+), 0.5 ML (IIV4)(Given 01/19/2014) Social History Tobacco Use Types Packs/Day Years Used Date Smoking Tobacco: Never Alcohol Use Standard Drinks/Week Comments Not Asked 0 (1 standard drink = 0.6 oz pur e alcohol) Sex and Gender Information Value Date Recorded Sex Assigned at Not on file Gender Identity Not on file Sexual Orientation Not on file Last Filed Vital Signs Vital Sign Reading Time Taken Comments Blood Pressure 114/62 01/29/2017 2:52 PM CDT Pulse 84 01/29/2017 2:52 PM CDT Temperature 36.7 ??C (98 ??F) 01/29/2017 11: 38 AM CDT Respiratory Rate 24 01/29/2017 2:52 PM CDT Oxygen Saturation 100% 12/02/2013 12: 30 PM CDT Inhaled Oxygen Concentration 100% 05/27/2012 2 :30 PM [employer] Weight 103.1 kg (227 lb 4.7 oz) 017 11:38 AM CDT Height 170 cm (5' 6.93) 01/29/2017 11: 38 AM CDT Body Mass Index 35.67 01/29/2017 11:38 AM CDT Procedures * HEPATIC FUNCTION PANEL(Performed 01/29/2017) Performed for Chronic ulcerative colitis without complication, unspecified location (HCC) * C-REACTIVE PROTEIN(Performed 01/29/2017) Performed for Chronic ulcerative colitis without complication, unspecified location (HCC) * DIFFERENTIAL MANUAL(Performed 01/29/2017) Performed for Chronic ulcerative colitis without complication, unspecified location (HCC) * ERYTHROCYTE SEDIMENTATION RATE(Performed 01/29/2017) Performed for Chronic ulcerative colitis without complication, unspecified location (HCC) * CBC W AUTO DIFFERENTIAL(Performed 01/29/2017) Performed for Chronic ulcerative colitis without complication, unspecified location (HCC) * ERYTHROCYTE SEDIMENTATION RATE(Performed 08/28/2016) Performed for Chronic ulcerative colitis without complication (HCC) * HEPATIC FUNCTION PANEL(Performed 08/28/2016) Performed for Chronic ulcerative colitis without complication (HCC) * C-REACTIVE PROTEIN(Performed 08/28/2016) Performed for Chronic ulcerative colitis without complication (HCC) * CBC W AUTO DIFFERENTIAL(Performed 08/28/2016) Performed for Chronic ulcerative colitis without complication (HCC) * HEPATIC FUNCTION PANEL(Performed 07/10/2016) Performed for Chronic ulcerative colitis without complication (HCC) * ERYTHROCYTE SEDIMENTATION RATE(Performed 07/10/2016) Performed for Chronic ulcerative colitis without complication (HCC) * C-REACTIVE PROTEIN(Performed 07/10/2016) Performed for Chronic ulcerative colitis without complication (HCC) * CBC W AUTO DIFFERENTIAL(Performed 07/10/2016) Performed for Chronic ulcerative colitis without complication (HCC) * ERYTHROCYTE SEDIMENTATION RATE(Performed 05/22/2016) Performed for Chronic ulcerative colitis without complication (HCC) * HEPATIC FUNCTION PANEL(Performed 05/22/2016) Performed for Chronic ulcerative colitis without complication (HCC) * C-REACTIVE PROTEIN(Performed 05/22/2016) Performed for Chronic ulcerative colitis without complication (HCC) * CBC W AUTO DIFFERENTIAL(Performed 05/22/2016) Performed for Chronic ulcerative colitis without complication (HCC) * CULTURE MRSA(Performed 04/03/2016) Performed for Impetigo * ERYTHROCYTE SEDIMENTATION RATE(Performed 04/03/2016) Performed for Chronic ulcerative colitis without complication (HCC) * HEPATIC FUNCTION PANEL(Performed 04/03/2016) Performed for Chronic ulcerative colitis without complication (HCC) * C-REACTIVE PROTEIN(Performed 04/03/2016) Performed for Chronic ulcerative colitis without complication (HCC) * CBC W AUTO DIFFERENTIAL(Performed 04/03/2016) Performed for Chronic ulcerative colitis without complication (HCC) * HEPATIC FUNCTION PANEL(Performed 02/14/2016) Performed for Chronic ulcerative colitis without complication (HCC) * C-REACTIVE PROTEIN(Performed 02/14/2016) Performed for Chronic ulcerative colitis without complication (HCC) * CBC W AUTO DIFFERENTIAL(Performed 02/14/2016) Performed for Chronic ulcerative colitis without complication (HCC) * ERYTHROCYTE SEDIMENTATION RATE(Performed 02/14/2016) Performed for Chronic ulcerative colitis without complication (HCC) * ERYTHROCYTE SEDIMENTATION RATE(Performed 12/27/2015) Performed for Chronic ulcerative colitis without complication (HCC) * HEPATIC FUNCTION PANEL(Performed 12/27/2015) Performed for Chronic ulcerative colitis without complication (HCC) * C-REACTIVE PROTEIN(Performed 12/27/2015) Performed for Chronic ulcerative colitis without complication (HCC) * CBC W AUTO DIFFERENTIAL(Performed 12/27/2015) Performed for Chronic ulcerative colitis without complication (HCC) * ERYTHROCYTE SEDIMENTATION RATE(Performed 11/02/2015) Performed for Chronic ulcerative colitis without complication (HCC) * HEPATIC FUNCTION PANEL(Performed 11/02/2015) Performed for Chronic ulcerative colitis without complication (HCC) * C-REACTIVE PROTEIN(Performed 11/02/2015) Performed for Chronic ulcerative colitis without complication (HCC) * CBC W AUTO DIFFERENTIAL(Performed 11/02/2015) Performed for Chronic ulcerative colitis without complication (HCC) * VITAMIN D 25-HYDROXY(Performed 09/14/2015) Performed for Chronic ulcerative colitis without complication (HCC) * ERYTHROCYTE SEDIMENTATION RATE(Performed 09/14/2015) Performed for Chronic ulcerative colitis without complication (HCC) * HEPATIC FUNCTION PANEL(Performed 09/14/2015) Performed for Chronic ulcerative colitis without complication (HCC) * CBC W AUTO DIFFERENTIAL(Performed 09/14/2015) Performed for Chronic ulcerative colitis without complication (HCC) * C-REACTIVE PROTEIN(Performed 09/14/2015) Performed for Chronic ulcerative colitis without complication (HCC) * TSH(Performed 08/02/2015) Performed for Ulcerative colitis with complication, unspecified location (HCC) * T4 TOTAL(Performed 08/02/2015) Performed for Ulcerative colitis with complication, unspecified location (HCC) * CERULOPLASMIN(Performed 08/02/2015) Performed for Ulcerative colitis with complication, unspecified location (HCC) * ERYTHROCYTE SEDIMENTATION RATE(Performed 08/02/2015) Performed for Ulcerative colitis with complication, unspecified location (HCC) * HEPATIC FUNCTION PANEL(Performed 08/02/2015) Performed for Ulcerative colitis with complication, unspecified location (HCC) * C-REACTIVE PROTEIN(Performed 08/02/2015) Performed for Ulcerative colitis with complication, unspecified location (HCC) * DIFFERENTIAL MANUAL(Performed 08/02/2015) Performed for Ulcerative colitis with complication, unspecified location (HCC) * CBC W AUTO DIFFERENTIAL(Performed 08/02/2015) Performed for Ulcerative colitis with complication, unspecified location (HCC) * TSH(Performed 06/21/2015) Performed for Ulcerative colitis with complication, unspecified ulcerative colitis * T4 TOTAL(Performed 06/21/2015) Performed for Ulcerative colitis with complication, unspecified ulcerative colitis * CERULOPLASMIN(Performed 06/21/2015) Performed for Ulcerative colitis with complication, unspecified ulcerative colitis * ERYTHROCYTE SEDIMENTATION RATE(Performed 06/21/2015) Performed for Ulcerative colitis with complication, unspecified ulcerative colitis * HEPATIC FUNCTION PANEL(Performed 06/21/2015) Performed for Ulcerative colitis with complication, unspecified ulcerative colitis * C-REACTIVE PROTEIN(Performed 06/21/2015) Performed for Ulcerative colitis with complication, unspecified ulcerative colitis * CBC W AUTO DIFFERENTIAL(Performed 06/21/2015) Performed for Ulcerative colitis with complication, unspecified ulcerative colitis * US ABDOMEN LTD W COMP DOPPLER(Performed 06/21/2015) Performed for Elevated liver enzymes * ERYTHROCYTE SEDIMENTATION RATE(Performed 05/10/2015) Performed for Chronic ulcerative colitis without complication (HCC) * HEPATIC FUNCTION PANEL(Performed 05/10/2015) Performed for Chronic ulcerative colitis without complication (HCC) * C-REACTIVE PROTEIN(Performed 05/10/2015) Performed for Chronic ulcerative colitis without complication (HCC) * CBC W AUTO DIFFERENTIAL(Performed 05/10/2015) Performed for Chronic ulcerative colitis without complication (HCC) * C-REACTIVE PROTEIN(Performed 03/29/2015) Performed for Chronic ulcerative colitis without complication (HCC) * HEPATIC FUNCTION PANEL(Performed 03/29/2015) Performed for Chronic ulcerative colitis without complication (HCC) * CBC W AUTO DIFFERENTIAL(Performed 03/29/2015) Performed for Chronic ulcerative colitis without complication (HCC) * ERYTHROCYTE SEDIMENTATION RATE(Performed 03/29/2015) Performed for Chronic ulcerative colitis without complication (HCC) * LAB RESULTS ORDER(Performed 02/20/2015) * ERYTHROCYTE SEDIMENTATION RATE(Performed 02/15/2015) Performed for Chronic ulcerative colitis without complication (HCC) * HEPATIC FUNCTION PANEL(Performed 02/15/2015) Performed for Chronic ulcerative colitis without complication (HCC) * CBC W AUTO DIFFERENTIAL(Performed 02/15/2015) Performed for Chronic ulcerative colitis without complication (HCC) * C-REACTIVE PROTEIN(Performed 02/15/2015) Performed for Chronic ulcerative colitis without complication (HCC) * ERYTHROCYTE SEDIMENTATION RATE(Performed 01/04/2015) Performed for Inflammatory bowel disease * HEPATIC FUNCTION PANEL(Performed 01/04/2015) Performed for Inflammatory bowel disease * C-REACTIVE PROTEIN(Performed 01/04/2015) Performed for Inflammatory bowel disease * CBC W AUTO DIFFERENTIAL(Performed 01/04/2015) Performed for Inflammatory bowel disease * ERYTHROCYTE SEDIMENTATION RATE(Performed 11/23/2014) Performed for Inflammatory bowel disease * HEPATIC FUNCTION PANEL(Performed 11/23/2014) Performed for Inflammatory bowel disease * C-REACTIVE PROTEIN(Performed 11/23/2014) Performed for Inflammatory bowel disease * CBC W AUTO DIFFERENTIAL(Performed 11/23/2014) Performed for Inflammatory bowel disease * ERYTHROCYTE SEDIMENTATION RATE(Performed 10/12/2014) Performed for Inflammatory bowel disease * HEPATIC FUNCTION PANEL(Performed 10/12/2014) Performed for Inflammatory bowel disease * C-REACTIVE PROTEIN(Performed 10/12/2014) Performed for Inflammatory bowel disease * CBC W AUTO DIFFERENTIAL(Performed 10/12/2014) Performed for Inflammatory bowel disease * ERYTHROCYTE SEDIMENTATION RATE(Performed 08/31/2014) Performed for Inflammatory bowel disease * HEPATIC FUNCTION PANEL(Performed 08/31/2014) Performed for Inflammatory bowel disease * C-REACTIVE PROTEIN(Performed 08/31/2014) Performed for Inflammatory bowel disease * CBC W AUTO DIFFERENTIAL(Performed 08/31/2014) Performed for Inflammatory bowel disease * ERYTHROCYTE SEDIMENTATION RATE(Performed 07/20/2014) Performed for Inflammatory bowel disease * HEPATIC FUNCTION PANEL(Performed 07/20/2014) Performed for Inflammatory bowel disease * C-REACTIVE PROTEIN(Performed 07/20/2014) Performed for Inflammatory bowel disease * CBC W AUTO DIFFERENTIAL(Performed 07/20/2014) Performed for Inflammatory bowel disease * LAB RESULTS ORDER(Performed 06/15/2014) * ERYTHROCYTE SEDIMENTATION RATE(Performed 06/01/2014) Performed for Inflammatory bowel disease * HEPATIC FUNCTION PANEL(Performed 06/01/2014) Performed for Inflammatory bowel disease * C-REACTIVE PROTEIN(Performed 06/01/2014) Performed for Inflammatory bowel disease * CBC W AUTO DIFFERENTIAL(Performed 06/01/2014) Performed for Inflammatory bowel disease * LAB RESULTS ORDER(Performed 05/10/2014) * LAB RESULTS ORDER(Performed 04/21/2014) * HEPATITIS SCREEN ACUTE(Performed 04/20/2014) Performed for Colitis * CERULOPLASMIN(Performed 04/20/2014) Performed for Colitis * ANTHONY BLOOD SCREEN W/REFLEX TITER(Performed 04/20/2014) Performed for Colitis * ERYTHROCYTE SEDIMENTATION RATE(Performed 04/20/2014) Performed for Colitis * HEPATIC FUNCTION PANEL(Performed 04/20/2014) Performed for Colitis * C-REACTIVE PROTEIN(Performed 04/20/2014) Performed for Colitis * CBC W AUTO DIFFERENTIAL(Performed 04/20/2014) Performed for Colitis * ERYTHROCYTE SEDIMENTATION RATE(Performed 03/09/2014) Performed for Inflammatory bowel disease * HEPATIC FUNCTION PANEL(Performed 03/09/2014) Performed for Inflammatory bowel disease * C-REACTIVE PROTEIN(Performed 03/09/2014) Performed for Inflammatory bowel disease * CBC W AUTO DIFFERENTIAL(Performed 03/09/2014) Performed for Inflammatory bowel disease * LAB RESULTS ORDER(Performed 02/19/2014) * ERYTHROCYTE SEDIMENTATION RATE(Performed 02/02/2014) Performed for Inflammatory bowel disease * HEPATIC FUNCTION PANEL(Performed 02/02/2014) Performed for Inflammatory bowel disease * C-REACTIVE PROTEIN(Performed 02/02/2014) Performed for Inflammatory bowel disease * CBC W AUTO DIFFERENTIAL(Performed 02/02/2014) Performed for Inflammatory bowel disease * ERYTHROCYTE SEDIMENTATION RATE(Performed 01/19/2014) Performed for Inflammatory bowel disease * HEPATIC FUNCTION PANEL(Performed 01/19/2014) Performed for Inflammatory bowel disease * C-REACTIVE PROTEIN(Performed 01/19/2014) Performed for Inflammatory bowel disease * CBC W AUTO DIFFERENTIAL(Performed 01/19/2014) Performed for Inflammatory bowel disease * ESOPHAGOGASTRODUODENOSCOPY (EGD) BIOPSY(Performed 12/02/2013) Performed for IBD (inflammatory bowel disease) * COLONOSCOPY BIOPSY (ANY METHOD)(Performed 12/02/2013) Performed for IBD (inflammatory bowel disease) * EGD(Performed 12/02/2013) Performed for Inflammatory bowel disease * ENDOSCOPY, COLON, DIAGNOSTIC(Performed 12/02/2013) Performed for Inflammatory bowel disease * THIOPURINE+METABOLITE PANEL(Performed 12/02/2013) Performed for Inflammatory bowel disease * PATHOLOGY TISSUE EXAM (STL)(Performed 12/02/2013) * CULTURE STOOL+ E COLI SHIGA-LIKE TOXIN(Performed 12/02/2013) Performed for Inflammatory bowel disease * HELICOBACTER PYLORI UREASE (STL)(Performed 12/02/2013) Performed for Inflammatory bowel disease * HCG BLOOD QUALITATIVE(Performed 12/02/2013) Performed for Inflammatory bowel disease, Bloody diarrhea, Colitis, Microcytic anemia * ERYTHROCYTE SEDIMENTATION RATE(Performed 12/02/2013) Performed for Colitis * HEPATIC FUNCTION PANEL(Performed 12/02/2013) Performed for Colitis * CBC W AUTO DIFFERENTIAL(Performed 12/02/2013) Performed for Colitis * C-REACTIVE PROTEIN(Performed 12/02/2013) Performed for Colitis * BASIC METABOLIC PANEL (CALCIUM TOTAL)(Performed 12/02/2013) Performed for Colitis * LAB RESULTS ORDER(Performed 11/19/2013) * C DIFFICILE TOXIN A+B(Performed 11/19/2013) Performed for Bloody diarrhea * CBC W AUTO DIFFERENTIAL(Performed 08/11/2013) Performed for Colitis * CBC W AUTO DIFFERENTIAL(Performed 04/30/2013) Performed for Colitis * IMAGING/RADIOLOGY/XRAY RESULTS ORDER(Performed 03/05/2013) * PATHOLOGY/CYTOLOGY REPORT ORDER(Performed 01/04/2013) * ESOPHAGOGASTRODUODENOSCOPY (EGD) BIOPSY(Performed 01/04/2013) Performed for Other and unspecified noninfectious gastroenteritis and colitis * COLONOSCOPY BIOPSY (ANY METHOD)(Performed 01/04/2013) Performed for Other and unspecified noninfectious gastroenteritis and colitis * PATHOLOGY TISSUE EXAM (STL)(Performed 01/04/2013) Performed for Colitis, Inflammatory bowel disease, Microcytic anemia, Bloody diarrhea * HCG BLOOD QUALITATIVE(Performed 01/04/2013) Performed for Colitis, Inflammatory bowel disease, Microcytic anemia * ENDOSCOPY, COLON, DIAGNOSTIC(Performed 01/04/2013) Performed for Inflammatory bowel disease * EGD(Performed 01/04/2013) Performed for Inflammatory bowel disease * ERYTHROCYTE SEDIMENTATION RATE(Performed 12/17/2012) Performed for Inflammatory bowel disease * VITAMIN D 25-HYDROXY(Performed 12/17/2012) Performed for Inflammatory bowel disease * C-REACTIVE PROTEIN(Performed 12/17/2012) Performed for Inflammatory bowel disease * COMPREHENSIVE METABOLIC PANEL(Performed 12/17/2012) Performed for Inflammatory bowel disease * CBC W AUTO DIFFERENTIAL(Performed 12/17/2012) Performed for Inflammatory bowel disease * LAB RESULTS ORDER(Performed 11/21/2012) * CBC W AUTO DIFFERENTIAL(Performed 10/19/2012) Performed for Colitis * CBC W AUTO DIFFERENTIAL(Performed 09/11/2012) Performed for Colitis * CALPROTECTIN FECAL(Performed 08/15/2012) Performed for Inflammatory bowel disease * LAB RESULTS ORDER(Performed 07/31/2012) * CBC W AUTO DIFFERENTIAL(Performed 07/24/2012) Performed for Colitis * CBC W AUTO DIFFERENTIAL(Performed 06/26/2012) Performed for Colitis * LAB RESULTS ORDER(Performed 06/23/2012) * IMAGING/RADIOLOGY/XRAY RESULTS ORDER(Performed 06/10/2012) * PATHOLOGY/CYTOLOGY REPORT ORDER(Performed 06/01/2012) * THIOPURINE METHYLTRANSFERASE(Performed 05/29/2012) * COMPREHENSIVE METABOLIC PANEL(Performed 05/28/2012) * ENDOSCOPY, COLON, DIAGNOSTIC(Performed 05/27/2012) Performed for Diarrhea * EGD(Performed 05/27/2012) Performed for Diarrhea * COLONOSCOPY BIOPSY (ANY METHOD)(Performed 05/27/2012) Performed for Diarrhea * ESOPHAGOGASTRODUODENOSCOPY (EGD) BIOPSY(Performed 05/27/2012) Performed for Diarrhea * DIFFERENTIAL MANUAL(Performed 05/27/2012) Performed for Diarrhea * C-REACTIVE PROTEIN(Performed 05/27/2012) Performed for Diarrhea * CBC W AUTO DIFFERENTIAL(Performed 05/27/2012) Performed for Diarrhea * PATHOLOGY TISSUE EXAM (STL)(Performed 05/27/2012) Performed for Diarrhea, Abdominal pain, unspecified site * HELICOBACTER PYLORI UREASE(Performed 05/27/2012) Performed for Diarrhea * HCG BLOOD QUALITATIVE(Performed 05/27/2012) Performed for Diarrhea * IGA BLOOD(Performed 05/14/2012) Performed for Diarrhea * TISSUE TRANSGLUTAMINASE AB IGA(Performed 05/14/2012) Performed for Diarrhea * ERYTHROCYTE SEDIMENTATION RATE(Performed 05/14/2012) Performed for Diarrhea * CBC W AUTO DIFFERENTIAL(Performed 05/14/2012) Performed for Diarrhea * C-REACTIVE PROTEIN(Performed 05/14/2012) Performed for Diarrhea * CULTURE STOOL PANEL(Performed 05/14/2012) Performed for Diarrhea Results * (ABNORMAL) C-REACTIVE PROTEIN (01/29/2017 12:41 PM CDT) Only the most recent of28 resultswithin the time period is included. C-Reactive Protein 2.50(H) <=0.50 mg/dL 01/29/2017 1:26 PM CDT [facility] Blood BLOOD SPECIMEN / Unknown Venipuncture / Unknown 01/29/2017 12:41 PM CDT 01/29/2017 12:50 PM CDT Emily Alexander MD LAB - CHEMISTRY [facility] [place] [address] * (ABNORMAL) HEPATIC FUNCTION PANEL (01/29/2017 12:41 PM CDT) Only the most recent of25 resultswithin the time period is included. Pathologist [facility] Alkaline Phosphatase 93 39 - 139 U/L 01/29/2017 1:26 PM CDT [facility] ALT 111(H) 8 - 65 U/L 01/29/2017 1:26 PM CDT [facility] AST 49(H) 8 - 42 U/L 01/29/2017 1:26 PM CDT [facility] Protein Total 8.3(H) 6.3 - 8.2 gm/dL 01/29/2017 1:26 PM CDT [facility] Albumin 3.9 3.3 - 4.9 gm/dL 01/29/2017 1:26 PM T [facility] Bilirubin Total 0.4 0.3 - 1.2 mg/dL 01/29/2017 1:26 PM T [facility] Bilirubin Direct 0.19 0.11 - 0.64 mg/dL 01/29/2017 1:26 PM CDT [facility] Blood BLOOD SPECIMEN / Unknown Venipuncture / Unknown 01/29/2017 12:41 PM CDT 01/29/2017 12:50 PM CDT Emily Alexander MD LAB - CHEMISTRY [facility] Performing Organization Address City/[facility] Co de Phone Number [facility] [address] [place] [address] * (ABNORMAL) ERYTHROCYTE SEDIMENTATION RATE (01/29/2017 12:40 PM CDT) Only the most recent of27 resultswithin the time period is included. Pathologist [facility] Erythrocyte Sedimentation Rate Automated 63(H) 0 - 20 MM/HR 01/29/2017 2:06 PM CDT [facility] Blood BLOOD SPECIMEN / Unknown Venipuncture / Unknown 01/29/2017 12:40 PM CDT 01/29/2017 12:50 PM CDT Emily Alexander MD LAB - HEMATOLOGY ORD JIL [facility] [address] [place] [address] * (ABNORMAL) DIFFERENTIAL MANUAL (01/29/2017 12:40 PM CDT) Only the most recent of3 resultswithin the time period is included. WBC Auto 10.8 x10E9/L 01/29/2017 2:05 PM CDT [facility] WBC Corrected 4.4 - 10.7 x10E9/L 01/29/2017 2:05 PM CDT [facility] nRBC /100 WBC 01/29/2017 2:05 PM CDT [facility] Neutrophil % Manual 79(H) 44 - 73 % 01/29/2017 2:05 PM CDT [facility] Lymphocytes % Manual 20 20 - 43 % 01/29/2017 2:05 PM T [facility] Monocytes % Manual 1(L) 5 - 13 % 01/29/2017 2:05 PM T [facility] Cells Counted 100 # cells 01/29/2017 2:05 PM CDT [facility] Platelet Estimation Adequate platelets Normal, Adequate platelets 01/29/2017 2:05 PM CDT [facility] WBC Morph Normal 01/29/2017 2:05 PM CDT [facility] Anisocytosis 1+(A) None 01/29/2017 2:05 PM CDT [facility] Poikilocytosis 1+(A) None 01/29/2017 2:05 PM T [facility] Blood BLOOD SPECIMEN / Unknown Venipuncture / Unknown 01/29/2017 12:40 PM CDT 01/29/2017 12:50 PM CDT Emily Alexander MD LAB - HEMATOLOGY ORD ERABLES [facility] [address] [place] [address] * (ABNORMAL) CBC W AUTO DIFFERENTIAL (01/29/2017 12:40 PM CDT) Only the most recent of34 resultswithin the time period is included. WBC 10.8(H) 4.4 - 10.7 x10E9/L 01/29/2017 1:24 PM CDT [facility] WBC Corrected x10E9/L 01/29/2017 1:24 PM CDT [facility] RBC 4.87 3.80 - 5.20 x10E12/L 01/29/2017 1:24 PM CDT [facility] Hemoglobin 12.3 12.0 - 15.6 gm/dL 01/29/2017 1:24 PM CDT [facility] Hematocrit 38.9 35.9 - 45.5 % 01/29/2017 1:24 PM CDT [facility] MCV 79.9(L) 80.7 - 102.0 fl 01/29/2017 1:24 PM CDT [facility] MCH 25.3(L) 26.7 - 34.0 pg 01/29/2017 1:24 PM CDT [facility] MCHC 31.6 30.8 - 35.9 gm/dL 01/29/2017 1:24 PM T [facility] Platelet Count 370 153 - 416 x10E9/L 01/29/2017 1:24 PM CDT [facility] RDW-CV 13.3 12.1 - 14.9 % 01/29/2017 1:24 PM T [facility] MPV 10.9 9.4 - 12.9 fl 01/29/2017 1:24 PM T [facility] nRBC Auto 0 /100 WBC 01/29/2017 1:24 PM CDT [facility] Blood BLOOD SPECIMEN / Unknown Venipuncture / Unknown 01/29/2017 12:40 PM CDT 01/29/2017 12:50 PM CDT Emily Alexander MD LAB - HEMATOLOGY ORD ERABLES Performing Organization Address City/State/[facility] Co de Phone Number [facility] [place] [address] * CULTURE MRSA (04/03/2016 3:18 PM [employer]) [facility] Culture Negative for MRSA NORA 04/05/2016 5:26 AM [employer] [facility] MICROBIOLOGY Microbiology SPECIMEN FROM NASAL FOSSAE / Unknown 04/03/2016 3:18 PM [employer] 04/03/2016 3:24 PM [employer] Luz Maria Sanchez MD LAB - MICROBIOLOGY O RDERABLES Performing Organization Address [facility] de Phone Number [facility] MICROBIOLOGY [address] [place] [address], [facility] [phone] * (ABNORMAL) VITAMIN D 25-HYDROXY (09/14/2015 12:27 PM CDT) Only the most recent of2 resultswithin the time period is included. Vitamin D, 25 Hydroxy 23.46(L) 30 - 100 ng/mL 09/14/2015 7:11 PM CDT [facility] Blood BLOOD SPECIMEN / Unknown 09/14/2015 12:27 PM CDT 09/14/2015 1:28 PM CDT Narrative [facility] - 09/14/2015 7:11 PM CDT Vitamin D Status: ?Deficiency ? <20 ? ng/mL ?Insufficiency ?? 20-30 ??ng/mL ?Sufficiency ? 30-100 ng/mL ?Toxicity ? >100 ?ng/mL Luz Maria Sanchez MD LAB - CHEMISTRY [facility] Performing Organization Address [facility] Phone Number [facility] [address] [place] [address] * CERULOPLASMIN (08/02/2015 12:07 PM CDT) Only the most recent of3 resultswithin the time period is included. Ceruloplasmin 37 17 - 54 mg/dL 08/02/2015 3:40 PM CDT [facility] Blood BLOOD SPECIMEN / Unknown 08/02/2015 12:07 PM CDT 08/02/2015 1:06 PM CDT Luz Maria Sanchez MD LAB - CHEMISTRY [facility] Performing Organization Address [facility]/ZIP Co de Phone Number [facility] [place] [address] * TSH (08/02/2015 12:07 PM CDT) Only the most recent of2 resultswithin the time period is included. TSH 2.11 0.35 - 4.95 uIU/mL 08/02/2015 2:15 PM CDT [facility] Blood BLOOD SPECIMEN / Unknown 08/02/2015 12:07 PM CDT 08/02/2015 1:07 PM CDT Luz Maria Sanchez MD LAB - CHEMISTRY [facility] Performing Organization Address [facility] de Phone Number [facility] [address] [place] [phone] * T4 TOTAL (08/02/2015 12:07 PM CDT) Only the most recent of2 resultswithin the time period is included. T4 Total 10.94 4.87 - 11.7 ug/dL 08/02/2015 2:15 PM CDT [facility] Blood BLOOD SPECIMEN / Unknown 08/02/2015 12:07 PM CDT 08/02/2015 1:07 PM CDT Luz Maria Sanchez MD LAB - CHEMISTRY [facility] Performing Organization Address [facility] de Phone Number [facility] [address] [place] [phone] * US LIVER w DOPPLER PORTAL VEIN (06/21/2015 11:28 AM [employer]) Anatomical Region Laterality Modality Ultrasound 06/21/2015 11:4 6 AM [employer] Impressions 06/21/2015 1:15 PM [employer] 1. Mild hepatic steatosis. 2. Mildly dilated common bile duct without evidence of cholelithiasis or biliary obstruction. 3. Patent liver vasculature. Dictated by Shima Michelel MD (resident). I, Gale Henriquez, have personally reviewed the images and I agree with this report. Narrative 06/21/2015 1:15 PM [employer] EXAMINATION: ??Liver ultrasound with Doppler History: ??19-year-old female with transaminitis and history of Crohn's. Comparison: No prior studies available for comparison. Findings: ??Multiple, real-time images of the right upper quadrant are obtained. The exam is degraded by the patient's body habitus. The echogenicity of the liver is mildly increased consistent with steatosis. No focal intrahepatic mass is seen. The liver contour is smooth. There is no intrahepatic ductal dilation. The gallbladder is normal. ??The common duct is mildly dilated at 5 mm. For reference, the common hepatic duct size for a 83-32-mhvt-old is 2.2 mm with a range of 1.0-4.0 mm. The kidneys are normal in size and echotexture. ??The pancreas is not visible. No ascites is present. The spleen measures 8.2 cm in length which is normal. The visible portions of the intrahepatic inferior vena cava and upper abdominal aorta are normal. Color Doppler and spectral analysis were used to evaluate the hepatic vasculature. ??The main portal vein and the right and left branches have hepatopetal flow. The middle, right, and left hepatic veins are patent with antegrade flow. ??The inferior vena cava at the level of the liver is patent with appropriate directional flow. ??The visible main hepatic artery is patent with resistive index ranging between 0.58-0.61. ??The spectral waveform in the main hepatic artery is normal. The splenic artery and vein are patent. Procedure Note Gale Henriquez MD - 06/21/2015 EXAMINATION: Liver ultrasound with Doppler History: 19-year-old female with transaminitis and history of Crohn's. Comparison: No prior studies available for comparison. Findings: Multiple, real-time images of the right upper quadrant are obtained. The exam is degraded by the patient's body habitus. The echogenicity of the liver is mildly increased consistent with steatosis. No focal intrahepatic mass is seen. The liver contour is smooth. There is no intrahepatic ductal dilation. The gallbladder is normal. The common duct is mildly dilated at 5 mm. For reference, the common hepatic duct size for a 86-40-xoec-old is 2.2 mm with a range of 1.0-4.0 mm. The kidneys are normal in size and echotexture. The pancreas is not visible. No ascites is present. The spleen measures 8.2 cm in length which is normal. The visible portions of the intrahepatic inferior vena cava and upper abdominal aorta are normal. Color Doppler and spectral analysis were used to evaluate the hepatic vasculature. The main portal vein and the right and left branches have hepatopetal flow. The middle, right, and left hepatic veins are patent with antegrade flow. The inferior vena cava at the level of the liver is patent with appropriate directional flow. The visible main hepatic artery is patent with resistive index ranging between 0.58-0.61. The spectral waveform in the main hepatic artery is normal. The splenic artery and vein are patent. IMPRESSION 1. Mild hepatic steatosis. 2. Mildly dilated common bile duct without evidence of cholelithiasis or biliary obstruction. 3. Patent liver vasculature. Dictated by Shima Michelle MD (resident). I, Gale Henriquez, have personally reviewed the images and I agree with this report. Luz Maria Sanchez MD US ORDERABLES * LAB RESULTS ORDER (02/20/2015 9:49 AM [employer]) Only the most recent of9 resultswithin the time period is included. Narrative 02/20/2015 9:49 AM [employer] Ordered by an unspecified provider. Scanned Document LAB - THERAPEUTIC DR RHODES MONITORING ORDERABLES * ANTHONY BLOOD SCREEN W/REFLEX TITER (04/20/2014 11:45 AM [employer]) Pathologist [facility] ANTHONY Negative Negative 04/21/2014 9:13 AM [employer] [facility] Blood BLOOD SPECIMEN / Unknown 04/20/2014 11:45 AM [employer] 04/20/2014 12:20 PM [employer] Luz Maria Sanchez MD LAB - CHEMISTRY [facility] Organization Address City/State/ZIP Co de Phone Number [facility] [address] [place] [address] * HEPATITIS SCREEN ACUTE (04/20/2014 11:45 AM [employer]) Pathologist [facility] HAV Antibody IgM Non Reactive Non Reactive 04/22/2014 8:50 AM [employer] [facility] HBsAg Non Reactive Non Reactive 04/22/2014 8:50 AM [facility] HBsAb Non Reactive Non Reactive 04/22/2014 8:50 AM [facility] HBc Antibody IgM Non Reactive Non Reactive 04/22/2014 8:50 AM [facility] HCV Antibody Screen Non Reactive Non Reactive 04/22/2014 8:50 AM [facility] Blood BLOOD SPECIMEN / Unknown 04/20/2014 11:45 AM [facility] 04/20/2014 12:19 PM [facility] Narrative [facility] - 04/22/2014 8:50 AM [facility] Nonreactive - Antibodies to HCV were not detected, result does not exclude early acute HCV infection. Nonreactive - Antibodies to HCV were not detected, result does not exclude early acute HCV infection. Luz Maria Sanchez MD LAB - CHEMISTRY [facility] Organization Address City/State/[facility] Co de Phone Number [facility] [address] [place] [address] * EGD (12/02/2013 12:32 PM CDT) Report Endoscopy POC _ Patient Name: Matilde Thomposn ?Gender: Female ?Date of : 1995 Age: 18 ? Admit Type: Outpatient Attending MD: Luz Maria Sanchez, ? Order #: [id number] _ Procedure: ? Upper GI endoscopy Indications: ? Follow-up of gastritis, Diarrhea Providers: ? Luz Maria Stoll MD: ?Gold Nielsen MD Medicines: ? General Anesthesia Complications: ? No immediate complications. _ Procedure: ? After obtaining informed consent, the endoscope was passed ? under direct vision. Throughout the procedure, the ? patient's blood pressure, pulse, and oxygen saturations ? were monitored continuously. The Endoscope was introduced ? through the mouth, and advanced to the second part of ? duodenum. The upper GI endoscopy was accomplished without ? difficulty. The patient tolerated the procedure well. Findings: ? No gross lesions were noted in the entire esophagus. Biopsies were taken ? with a cold forceps for histology. Estimated blood loss was minimal. ? Localized moderately erythematous mucosa with stigmata of recent ? bleeding was found in the gastric antrum. Biopsies were taken with a ? cold forceps for Helicobacter pylori testing using a rapid urease test. ? Biopsies were taken with a cold forceps for histology. Estimated blood ? loss was minimal. ? A single umbilicated lesion measuring 3 mm in diameter was found in the ? gastric antrum )c/w pancreatic rest). ? Diffuse mildly erythematous mucosa without active bleeding and with no ? stigmata of bleeding was found in the second part of the duodenum. ? Biopsies were taken with a cold forceps for histology. Estimated blood ? loss was minimal. Impression: ?- No gross lesions in esophagus. Biopsied. ? - No gross lesions in the stomach. Biopsied. ? - No gross lesions in duodenum. Biopsied. Recommendation: ?- Perform a colonoscopy today. ? Procedure Code(s): ? --- Professional --- ? 08971, Esophagogastrodu odenoscopy, flexible, transoral; with biopsy, ? single or multiple ? --- Technical --- ? 43031, Esophagogastrodu odenoscopy, flexible, transoral; with biopsy, ? single or multiple Diagnosis Code(s): ? --- Professional --- ? 535.50, Unspecified gastritis and gastroduodenitis , without mention of ? hemorrhage ? 787.91, Diarrhea ? --- Technical --- ? 535.50, Unspecified gastritis and gastroduodenitis , without mention of ? hemorrhage ? 787.91, Diarrhea CPT copyright 2013 [employer]. All rights reserved. The codes documented in this report are preliminary and upon message and delivery service pricer review may be revised to meet current compliance requirements. Dr. Luz Maria Sanchez Luz Maria Sanchez, 12/02/2013 10:49 AM This report has been signed electronically. Number of Addenda: 0 Note Initiated On: 12/01/2013 12:32 PM Procedure Date: ? 12/02/2013 12:32:00 PM ? This report has been signed electronically. [facility] 12/02/2013 12:3 2 PM CDT Luz Maria Sanchez MD GI PROCEDURE ORDERAB LES [facility] [address] [place] [place] [address] * ENDOSCOPY, COLON, DIAGNOSTIC (12/02/2013 12:30 PM CDT) Report Endoscopy POC _ Patient Name: Matilde Thompson ?Gender: Female ?Date of : 1995 Age: 18 ? Admit Type: Outpatient Attending MD: Luz Maria Sanchez, ? Order #: [id number] _ Procedure: ? Colonoscopy Indications: ? Personal history of inflammatory bowel disease Providers: ? Luz Maria Stoll MD: ?Gold Nielsen MD Medicines: ? General Anesthesia Complications: ? No immediate complications. _ Procedure: ? After I obtained informed consent, the scope was passed ? under direct vision. Throughout the procedure, the ? patient's blood pressure, pulse, and oxygen saturations ? were monitored continuously. The Endoscope was introduced ? through the anus and advanced to the terminal ileum. The ? colonoscopy was performed without difficulty. The patient ? tolerated the procedure well. The quality of the bowel ? preparation was poor. Findings: ? The perianal and digital rectal examinations were normal. ? A diffuse area of moderately erythematous mucosa was found from rectum ? to hepatic flexure. Biopsies were taken with a cold forceps for ? histology. Estimated blood loss was minimal. ? The exam was otherwise without abnormality. ? The terminal ileum appeared normal. Impression: ?- Preparation of the colon was poor. ? - Erythematous mucosa from rectum to hepatic flexure. ? Biopsied. ? - The examination was otherwise normal. ? - The examined portion of the ileum was normal. Recommendation: ?- Discharge patient to home (with parent). ? - Continue present medications. ? Procedure Code(s): ? --- Professional --- ? 55488, Colonoscopy, flexible, proximal to splenic flexure; with biopsy, ? single or multiple ? --- Technical --- ? 02271, Colonoscopy, flexible, proximal to splenic flexure; with biopsy, ? single or multiple Diagnosis Code(s): ? --- Professional --- ? 569.89, Other specified disorders of intestine ? V12.79, Personal history of other diseases of digestive system ? --- Technical --- ? 569.89, Other specified disorders of intestine ? V12.79, Personal history of other diseases of digestive system CPT copyright 2013 [employer]. All rights reserved. The codes documented in this report are preliminary and upon message and delivery service pricer review may be revised to meet current compliance requirements. Dr. Luz Maria Sanchez Luz Maria Sanchez, 12/02/2013 11:42 AM This report has been signed electronically. Number of Addenda: 1 Note Initiated On: 12/01/2013 12:30 PM Procedure Date: ? 12/02/2013 12:30:00 PM _ Addendum Number: 1 ?? Addendum Date: 12/02/2013 11:42 AM ? Colon from rectum to 70 cm (hepatic flexure) with erythema, loss of ? vascular markings, nodular. Dr. Luz Maria Sanchez Luz Maria Sanchez, 12/02/2013 11:43 AM This report has been signed electronically. ? This report has been signed electronically. [facility] 12/02/2013 12:3 0 PM CDT Luz Maria Sanchez MD GI PROCEDURE ORDERAB LES [facility] [address] [place] [address] * THIOPURINE+METABOLITE PANEL (12/02/2013 10:50 AM CDT) Thiopurine Metabolites See Note 12/08/2013 3:10 PM CDT [employer] ([facility]) Comment: Sample Type: Whole Blood Test Results Metabolite ? Result (Units: ?Reference ? pmole/8X10E8 RBC) ?Range 6-TGN ? 394 ?230-400 Result Assessment: ??Higher Likelihood of Response. 6-MMPN ?1406 ? <5700 Result Assessment: ??Lower Risk of Hepatotoxicity. Cumulative PROMETHEUS Thiopurine Metabolites Patient Results Collection ?6-TGN ?6-MMPN ?Drug ? Dosage Date ? Level ?Level ?----- ?------ ?---- ? ------ 12/02/2013 ?394 ?1406 ? IT GENERALIST ?IT GENERALIST IT GENERALIST = Not Provided *The therapeutic range and toxic thresholds were established in an IBD patient population receiving azathioprine or 6-mercaptopurine. ??Metabolite testing should not replace laboratory monitoring for toxicity. [facility] diagnostic services provide important information to aid in the diagnosis and management of certain diseases. ??Test results should be used with other clinical and diagnostic findings to make a diagnosis and prognosis. ??This test was developed and its performance characteristics determined by [employer] It has not been cleared or approved by the U.S. Food and Drug Administration. This test may be covered by one or more [place] pending or issued patents. Performed at: [facility] [employer] [address] [place] [address] Blood specimen (specimen) BLOOD SPECIMEN / Unknown 12/02/2013 10:50 AM CDT 12/02/2013 10:59 AM CDT Luz Maria Sanchez MD LAB - THERAPEUTIC DR RHODES MONITORING ORDERABLES [facility] [employer] ([facility]) [address] [place] [address], [facility] * GROSS + MICRO EXAM (STL) (12/02/2013 10:36 AM CDT) Only the most recent of3 resultswithin the time period is included. Case Report Surgical Pathology Report ? Case: [id number] ? Authorizing Provider: ??Luz Maria Sanchez MD ? Collected: ? 12/02/2013 10:36 AM ? Ordering Location: ? ENDOSCOPY SERVICES ?Received: ?12/02/2013 12:19 PM ? Pathologist: ? Karina Jaffe MD ? Specimens: ?? A) - Duodenal Biopsy, random biopsies ? B) - Esophageal Biopsy, MID Esophagus- random biopsies ? C) - Stomach Biopsy, random biopsies ? D) - Esophageal Biopsy, DISTAL Esophagus- random biopsies ? E) - Cecum Biopsy, random biopsies ? F) - Colon Ascending Biopsy, random biopsies ? G) - Colon Transverse Biopsy, random biopsies ? H) - Rectosigmoid Biopsy, random biopsies ? I) - Colon Descending Biopsy, DESCENDING- random biopsies ? J) - Ileum, Terminal Ileum ? 12/03/2013 11:43 AM [facility] Final Diagnosis A. DUODENUM, BIOPSY: - NO HISTOPATHOLOGIC ABNORMALITY B. ESOPHAGUS, MID, BIOPSY: - MILD REACTIVE CHANGES C. STOMACH, BIOPSY: - MILD CHRONIC INFLAMMATION D. ESOPHAGUS, DISTAL, BIOPSY: - MILD REACTIVE CHANGES E. CECUM, BIOPSY: - NO HISTOPATHOLOGIC ABNORMALITY F. COLON, ASCENDING, BIOPSY: - NO HISTOPATHOLOGIC ABNORMALITY G. COLON, TRANSVERSE, BIOPSY: - CHRONIC ACTIVE COLITIS WITH CRYPTITIS AND CRYPT ABSCESSES H. COLON, RECTOSIGMOID, BIOPSY: - CHRONIC ACTIVE COLITIS WITH CRYPTITIS, CRYPT ABSCESSES, MUCOSAL ULCERATION AND NECROINFLAMMATORY DEBRIS - FOCAL PANETH CELL METAPLASIA I. COLON, DESCENDING, BIOPSY: - CHRONIC ACTIVE COLITIS WITH CRYPTITIS AND CRYPT ABSCESSES - FOCAL PANETH CELL METAPLASIA J. TERMINAL ILEUM, BIOPSY: - NO HISTOPATHOLOGIC ABNORMALITY 12/03/2013 11:43 AM [facility] Clinical History The patient is a 18-year-old girl with inflammatory bowel disease who underwent colonoscopy and upper endoscopy. 12/03/2013 11:43 AM [facility] Gross Description The specimens are received fixed in formalin in ten containers for gross and microscopic examination, each labeled with the patient's name, Matilde Thompson. ?? Specimen A, random duodenal biopsies, consists of three soft, yellow-abbott tissue fragments ranging in size from 2 mm to 4 mm in greatest dimension. ??The specimen is submitted in toto as A1. Specimen B, mid esophagus, consists of three soft, translucent white tissue fragments ranging in size from <1 mm to 4 mm in greatest dimension. The specimen is submitted in toto as B1. Specimen C, random stomach biopsies, consists of two soft, yellow-abbott tissue fragments ranging in size from <1 mm to 3 mm in greatest dimension. The specimen is submitted in toto as C1. ?? Specimen D, distal esophagus biopsy, is one 4 mm soft, translucent white tissue fragment submitted in toto as D1. Specimen E, random cecum biopsies, consists of two soft, yellow-abbott tissue fragments, 2 mm and 4 mm in greatest dimension. The specimen is submitted in toto as E1. Specimen F, random ascending biopsy, consists of one 5 mm soft, yellow-abbott tissue fragment submitted in toto as F1. Specimen G, colon transverse biopsy, consists of two soft, yellow-abbott tissue fragments, 2 mm and 3 mm in greatest dimension. The specimen is submitted in toto as G1. Specimen H, rectosigmoid biopsy, consists of five soft, yellow-abbott tissue fragments ranging in size from 1 mm to 4 mm in greatest dimension. The specimen is submitted in toto as H1. ?? Specimen I, colon biopsy descending, consists of two soft, yellow-abbott tissue fragments, 3 mm and 4 mm in greatest dimension. The specimen is submitted in toto as I1. ?? Specimen J, terminal ileum biopsy, consists of one 4 mm soft, yellow-abbott tissue fragment submitted in toto as J1. (LUCIO/abraham) 12/03/2013 11:43 AM [facility] Microscopic Description 30 H&E slides Sections from the duodenum show a normal crypt to villous architecture with no increase in intraepithelial lymphocytes. ?? Sections from the mid and distal esophagus show mild reactive changes with few intraepithelial lymphocytes. Sections from the stomach biopsy shows mild chronic inflammation with lamina propria plasma cells and lymphocytes. There is no evidence of active inflammation. Sections from the cecum and ascending colon show fragments of unremarkable colonic mucosa. There is no evidence of active inflammation, granulomas or dysplasia. Sections from the transverse colon show chronic active colitis with mild architectural disarray, basal lymphoplasmacytosis, cryptitis and crypt abscesses. There is no evidence of granulomas or dysplasia Sections from the rectosigmoid show chronic active colitis with mild architectural disarray, basal lymphoplasmacytosis, cryptitis, crypt abscesses, mucosal ulceration and necroinflammatory debris. There is focal paneth cell metaplasia. There is no evidence of granulomas or dysplasia. Sections from the descending colon show chronic active colitis with mild architectural disarray, basal lymphoplasmacytosis, cryptitis and crypt abscesses. There is focal paneth cell metaplasia. There is no evidence of granulomas or dysplasia. Sections from the terminal ileum show fragments of unremarkable small intestinal mucosa with prominent mucosal lymphoid aggregates. There is no evidence of granulomas or dysplasia. 12/03/2013 11:43 AM CDT [facility] Disclaimer The performance characteristics of all immunohistochemical and indirect immunofluorescence stains (if any) cited in this report were determined by the [facility] in compliance with CLIA `88 regulations. Some of these tests rely on the use of analyte-specific reagents and are subject to specific labeling requirements by the FDA. Such tests were developed by the [facility] and have not been cleared or approved by the FDA. The FDA has determined that such clearance or approval is not necessary. These tests are used for clinical purposes and should not be regarded as investigational or for research. This case has been personally reviewed and interpreted by the attending (teaching) pathologist. 12/03/2013 11:43 AM CDT [facility] Pathology/Cytology DUODENAL BIOPSY SPECIMEN / Unknown 12/02/2013 10:36 AM CDT 12/02/2013 12:19 PM CDT Comment:colitis Miscellaneous samples (specimen) BIOPSY OF STOMACH / Unknown 12/02/2013 10:36 AM CDT 12/02/2013 12:19 PM CDT Comment:colitis Miscellaneous samples (specimen) ESOPHAGEAL BIOPSY SPECIMEN / Unknown 12/02/2013 10:36 AM CDT 12/02/2013 12:19 PM CDT Comment:colitis Miscellaneous samples (specimen) ESOPHAGEAL BIOPSY SPECIMEN / Unknown 12/02/2013 10:36 AM CDT 12/02/2013 12:19 PM CDT Comment:colitis Miscellaneous samples (specimen) ENTIRE CECUM / Unknown 12/02/2013 11:24 AM CDT 12/02/2013 12:19 PM CDT Comment:colitis Miscellaneous samples (specimen) COLONIC BIOPSY SPECIMEN / Unknown 12/02/2013 11:26 AM CDT 12/02/2013 12:19 PM CDT Comment:colitis Miscellaneous samples (specimen) SPECIMEN FROM COLON OBTAINED BY TRANSVERSE COLECTOMY / Unknown 12/02/2013 11:26 AM CDT 12/02/2013 12:19 PM CDT Comment:colitis Miscellaneous samples (specimen) COLONIC BIOPSY SPECIMEN / Unknown 12/02/2013 11:26 AM CDT 12/02/2013 12:19 PM CDT Comment:colitis Miscellaneous samples (specimen) RECTOSIGMOID STRUCTURE / Unknown 12/02/2013 11:26 AM CDT 12/02/2013 12:19 PM CDT Comment:colitis Miscellaneous samples (specimen) ENTIRE ILEUM / Unknown 12/02/2013 11:33 AM CDT 12/02/2013 12:19 PM CDT Comment:colitis Luz Maria Sanchez MD LAB - PATHOLOGY/CYTO LOGY ORDERABLES Performing Organization Address [facility] Co de Phone Number [facility] [address] [place] [address] * CULTURE STOOL+ E COLI SHIGA-LIKE TOXIN (12/02/2013 10:34 AM CDT) Culture No growth Salmonella, Shigella, Campylobacter , E. coli 0157:h7 or Yersinia NORA 12/05/2013 1:46 PM CDT [facility] MICRO[facility]OLOG[facility] Culture Negative E. coli Shiga-like toxin (NM) NORA 12/05/2013 1:46 PM CDT [facility] MICRO[facility]OLOG[facility] Stool STOOL SPECIMEN / Unknown 12/02/2013 10:34 AM CDT 12/02/2013 11:49 AM CDT Luz Maria Sanchez MD LAB - MICROBIOLOGY O ROLAND Performing Organization Address [facility] Co de Phone Number [facility]CROBIOLOG[facility] [address] [place] [address], [facility] * HELICOBACTER PYLORI UREASE (STL) (12/02/2013 10:33 AM CDT) Helicobacter pylori Urease Initial Negative Negative 12/03/2013 12:10 PM CDT [facility] Helicobacter pylori Urease Final Negative Negative 12/03/2013 12:10 PM CDT [facility] Microbiology GASTRIC BIOPSY SPECIMEN / Unknown 12/02/2013 10:33 AM CDT 12/02/2013 11:49 AM CDT Luz Maria Sanchez MD LAB - MICROBIOLOGY O ROLAND Performing Organization Address [facility] Co de Phone Number [facility] [address] [place] [address] * BASIC METABOLIC PANEL (CALCIUM TOTAL) (12/02/2013 8:35 AM CDT) Glucose 78 70 - 105 mg/dL 12/02/2013 9:50 AM CDT [facility] Sodium 142 136 - 145 mmol/L 12/02/2013 9:50 AM [facility] Potassium 3.6 3.5 - 5.1 mmol/L 12/02/2013 9:50 AM T [facility] Chloride 107 98 - 107 mmol/L 12/02/2013 9:50 AM T [facility] CO2 22 20 - 28 mmol/L 12/02/2013 9:50 AM T [facility] Calcium 9.79 9.08 - 10.48 mg/dL 12/02/2013 9:50 AM [facility] Anion Gap 13 5 - 20 mmol/L 12/02/2013 9:50 AM T [facility] BUN 7.0 5.3 - 18.7 mg/dL 12/02/2013 9:50 AM [facility] Creatinine 0.74 0.61 - 1.07 mg/dL 12/02/2013 9:50 AM [facility] eGFR by MDRD mL/min/1.7 3m2 12/02/2013 9:50 AM [facility] Comment:eGFR calculations ar e not performed for children under 18 years old. eGFR by MDRD mL/min/1.7 3m2 12/02/2013 9:50 AM [facility] Comment:eGFR calculations ar e not performed for children under 18 years old. Blood BLOOD SPECIMEN / Unknown 12/02/2013 8:35 AM CDT 12/02/2013 9:29 AM CDT Luz Maria Sanchez MD LAB - CHEMISTRY [facility] Organization Address City/State/[facility] Co de Phone Number [facility] [address] [place] [address] * HCG BLOOD QUALITATIVE (12/02/2013 8:35 AM CDT) Only the most recent of3 resultswithin the time period is included. HCG Qual Serum Negative Negative 12/02/2013 9:30 AM T [facility] Blood BLOOD SPECIMEN / Unknown 12/02/2013 8:35 AM CDT 12/02/2013 9:03 AM CDT Luz Maria Sanchez MD LAB - CHEMISTRY [facility] Julianna Moran [facility] [place] [address] * CLOSTRIDIUM DIFFICILE TOXIN (11/19/2013 12:00 AM CDT) C difficile Toxin A + B Negative Negative [facility] INSURANCE BILL Stool specimen (specimen) STOOL SPECIMEN / Unknown 11/19/2013 11/19/2013 8:58 PM CDT Narrative Resulting Agency Comment [facility] [place] [id number] [facility] ??[facility] [id number] Luz Maria Sanchez MD LAB - MICROBIOLOGY O RDJIL [facility] INSURANCE BILL * IMAGING/RADIOLOGY/XRAY RESULTS ORDER (03/05/2013 9:26 PM [employer]) Only the most recent of2 resultswithin the time period is included. Anatomical Region Laterality Modality Other Narrative 02/13/2013 12:57 AM CDT Ordered by an unspecified provider. Transcriptions Document, Scanned - 02/13/2013 12:57 AM CDT Document, Scanned - 03/05/2013 9:26 PM CST Scanned Document IMAGING * PATHOLOGY/CYTOLOGY REPORT ORDER (01/04/2013 10:57 PM CDT) Only the most recent of2 resultswithin the time period is included. Narrative 01/04/2013 10:57 PM CDT Ordered by an unspecified provider. Transcriptions Document, Scanned - 01/04/2013 10:57 PM CDT Scanned Document LAB - PATHOLOGY/CYTO LOGY ORDERABLES * ENDOSCOPY, COLON, DIAGNOSTIC (01/04/2013 7:51 AM CDT) Report Endoscopy POC _ Patient Name: Matilde Thompson ?Gender: Female ?Date of : 1995 Age: 17 ? Admit Type: Outpatient Attending MD: Luz Maria Sanchez, ? Order #: [id number] _ Procedure: ? Colonoscopy Indications: ? Chronic diarrhea, Colitis Providers: ? Luz Maria Sanchez Referring MD: ?Gold Nielsen MD Medicines: ? General Anesthesia Complications: ? No immediate complications. _ Procedure: ? After I obtained informed consent, the scope was passed ? under direct vision. Throughout the procedure, the ? patient's blood pressure, pulse, and oxygen saturations ? were monitored continuously. The Colonoscope was ? introduced through the anus and advanced to the terminal ? ileum. The colonoscopy was performed without difficulty. ? The patient tolerated the procedure well. The quality of ? the bowel preparation was good. Findings: ? The terminal ileum appeared normal. Biopsies were taken with a cold ? forceps for histology. Estimated blood loss was minimal. ? A localized area of mildly punctate erythematous mucosa was found in the ? recto-sigmoid colon. Estimated blood loss was minimal. ? The exam was otherwise without abnormality. ? Biopsies were taken with a cold forceps for histology. Estimated blood ? loss was minimal. Impression: ?- The examined portion of the ileum was normal. This was ? biopsied. ? - Mild punctate Erythematous mucosa in rectosigmoid region ? - The examination was otherwise normal. ? - Biopsies were taken with a cold forceps for histology. Recommendation: ?- Discharge patient to home (with parent). ? - Await pathology results. ? Procedure Code(s): ? --- Professional --- ? 68183, Colonoscopy, flexible, proximal to splenic flexure; with biopsy, ? single or multiple ? --- Technical --- ? 11227, Colonoscopy, flexible, proximal to splenic flexure; with biopsy, ? single or multiple Diagnosis Code(s): ? --- Professional --- ? 569.89, Other specified disorders of intestine ? 787.91, Diarrhea ? 558.9, Other and unspecified noninfectious gastroenteritis and colitis ? --- Technical --- ? 569.89, Other specified disorders of intestine ? 787.91, Diarrhea ? 558.9, Other and unspecified noninfectious gastroenteritis and colitis CPT (R) 2012 [employer]. All Rights Reserved. The codes documented in this report are preliminary and upon message and delivery service pricer review may be revised to meet current compliance requirements. Dr. Luz Maria Sanchez Luz Maria Sanchez, 01/04/2013 10:14 AM This report has been signed electronically. Number of Addenda: 0 Note Initiated On: 01/04/2013 7:51 AM Procedure Date: ? 01/04/2013 7:51:52 AM ? This report has been signed electronically. [facility] 01/04/2013 7:51 AM CDT Narrative [facility] - 01/04/2013 10:15 AM CDT Procedure Note Luz Maria Sanchez MD - 01/04/2013 10:16 AM CDT Luz Maria Sanchez MD GI PROCEDURE ORDERAB LES [facility] [address] [facility] [place] [place] [address] * EGD (01/04/2013 7:51 AM CDT) Report Endoscopy POC __ _ Patient Name: Matilde Thompson ?Gender: Female ?Date of : 1995 Age: 17 ? Admit Type: Outpatient Attending MD: Luz Maria Sanchez, ? Order #: [id number] __ _ Procedure: ? Upper GI endoscopy Indications: ? Generalized abdominal pain, Diarrhea Providers: ? Luz Maria Sanchez Referring MD: ?Gold Nielsen MD Medicines: ? General Anesthesia Complications: ? No immediate complications. __ _ Procedure: ? After obtaining informed consent, the endoscope was passed ? under direct vision. Throughout the procedure, the ? patient's blood pressure, pulse, and oxygen saturations ? were monitored continuously. The Endoscope was introduced ? through the mouth, and advanced to the second part of ? duodenum. The upper GI endoscopy was accomplished without ? difficulty. The patient tolerated the procedure well. Findings: ? Localized mild erythema was found in the lower third of the esophagus. ? Biopsies were taken with a cold forceps for histology. Estimated blood ? loss was minimal. ? Aside from small umbilicated lesion (likely benign pancreatic rest), No ? gross lesions were noted in the entire examined stomach. Biopsies were ? taken with a cold forceps for histology. Estimated blood loss was ? minimal. ? No gross lesions were noted in the entire examined duodenum. Biopsies ? were taken with a cold forceps for histology. Estimated blood loss was ? minimal. Impression: ?- Erythema in the lower third of the esophagus. ? - Pancreatic rest, No gross lesions in the stomach. ? - No gross lesions in duodenum. Recommendation: ?- Discharge patient to home (with parent). ? - Await pathology results. ? Procedure Code(s): ? --- Professional --- ? 44482, Upper gastrointestinal endoscopy including esophagus, stomach, ? and either the duodenum and/or jejunum as appropriate; with biopsy, ? single or multiple ? --- Technical --- ? 59782, Upper gastrointestinal endoscopy including esophagus, stomach, ? and either the duodenum and/or jejunum as appropriate; with biopsy, ? single or multiple Diagnosis Code(s): ? --- Professional --- ? 530.9, Unspecified disorder of esophagus ? 789.07, Abdominal pain, generalized ? 787.91, Diarrhea ? --- Technical --- ? 530.9, Unspecified disorder of esophagus ? 789.07, Abdominal pain, generalized ? 787.91, Diarrhea CPT (R) 2012 [employer]. All Rights Reserved. The codes documented in this report are preliminary and upon message and delivery service pricer review may be revised to meet current compliance requirements. Dr. Luz Maria Sanchez Luz Maria Sanchez, 01/04/2013 9:35 AM This report has been signed electronically. Number of Addenda: 0 Note Initiated On: 01/04/2013 7:51 AM Procedure Date: ? 01/04/2013 7:51:10 AM ? This report has been signed electronically. [facility] 01/04/2013 7:51 AM CDT Narrative [facility] - 01/04/2013 9:36 AM CDT Procedure Note Luz Maria Sanchez MD - 01/04/2013 9:36 AM CDT Luz Maria Sanchez MD GI PROCEDURE ORDERAB LES Performing Organization Address City/State/[facility] Co de Phone Number [facility] [address] [facility] [place] [address] * (ABNORMAL) COMPREHENSIVE METABOLIC PANEL (12/17/2012 3:20 PM CDT) Only the most recent of2 resultswithin the time period is included. Glucose 81 70 - 105 mg/dL 12/17/2012 3:54 PM CDT [facility] Sodium 138 136 - 145 mmol/L 12/17/2012 3:54 PM CDT [facility] Potassium 3.6 3.5 - 5.1 mmol/L 12/17/2012 3:54 PM [facility] Chloride 104 98 - 107 mmol/L 12/17/2012 3:54 PM [facility] CO2 27 20 - 28 mmol/L 12/17/2012 3:54 PM [facility] Calcium 9.98 9.08 - 10.48 mg/dL 12/17/2012 3:54 PM [facility] Anion Gap 7 5 - 20 mmol/L 12/17/2012 3:54 PM [facility] BUN 8.5 5.3 - 18.7 mg/dL 12/17/2012 3:54 PM [facility] Creatinine 0.57(L) 0.61 - 1.07 mg/dL 12/17/2012 3:54 PM [facility] eGFR by MDRD ml/min/1. 73m2 12/17/2012 3:54 PM [facility] Comment:eGFR calculations ar e not performed for children under 18 years old. eGFR by MDRD ml/min/1. 73m2 12/17/2012 3:54 PM [facility] Comment:eGFR calculations ar e not performed for children under 18 years old. Alkaline Phosphatase 78(L) 100 - 390 U/L 12/17/2012 3:54 PM T [facility] ALT 20 8 - 65 U/L 12/17/2012 3:54 PM [facility] AST 18 3 - 35 U/L 12/17/2012 3:54 PM [facility] Protein Total 7.6 6.3 - 8.2 gm/dL 12/17/2012 3:54 PM [facility] Albumin 3.8 3.3 - 4.9 gm/dL 12/17/2012 3:54 PM [facility] Bilirubin Total 0.4 0.3 - 1.2 mg/dL 12/17/2012 3:54 PM [facility] Blood BLOOD SPECIMEN / Unknown Lab Venipuncture / Unknown 12/17/2012 3:20 PM CDT 12/17/2012 3:26 PM T Luz Maria Sanchez MD LAB - CHEMISTRY [facility] Organization Address City/State/ZIP Co de Phone Number [facility] [address] [place] [address] * (ABNORMAL) CALPROTECTIN FECAL (08/15/2012 9:00 AM CDT) Calprotectin Fecal 588(H) 0 - 120 ug/g [facility] INSURANCE BILL Comment: Results verified by repeat testing Concentration ? Interpretation ?? Follow-Up <16 - 50 ug/g ? Normal ? None >50 -120 ug/g ? Borderline ? Re-evaluate in 4-6 weeks ?>120 ug/g ? Abnormal ? Repeat as clinically ?indicated Stool specimen (specimen) STOOL SPECIMEN / Unknown 08/15/2012 9:00 AM CDT 08/15/2012 1:18 PM CDT Narrative Resulting Agency Comment [facility] [address] ??[facility] [id number] Luz Maria Sanchez MD LAB - BODY FLUID ORD ERABLES [facility] INSURANCE BILL * THIOPURINE METH TRANSFERASE (05/29/2012 4:16 AM [employer]) Thiopurine Methyltransferase 24.9 U/mL 06/03/2012 8:09 AM [email or web address] Comment: INTERPRETIVE INFORMATION: Thiopurine Methyltransferase, RBC Normal TPMT activity: 25-65 U/mL............Individuals are predicted to be at ?low risk of bone marrow toxicity as ?a consequence of standard thiopurine ?therapy; no dose adjustment is ?recommended. Abnormal TPMT activity: less than 25 U/mL ....Individuals are predicted to be at ?high risk of bone marrow toxicity ?as a consequence of standard ?thiopurine dosing; a dose reduction ?and therapeutic monitoring ??is ?recommended. greater than 65 U/mL..Individuals are not predicted to be ?at low risk for bone marrow toxicity ?as a consequence of standard ?thiopurine dosing, but may be at risk ?for therapeutic failure due to ?excessive inactivation of thiopurine ?drugs. Individuals may require higher ?than the standard dose: therapeutic ?monitoring is recommended. The TPMT, RBC assay is used as a screen to detect individuals with low (abnormal) TPMT activity that may be at risk for excessive myelosuppression when exposed to standard doses of thiopurines such as azathioprine (Imuran) and 6-mercaptopurine(Purinethol). TPMT is the primary metabolic route for inactivation of thiopurine drugs in the bone marrow. ??When TPMT activity is low, it is predicted that proportionately more 6-mercaptopurine is converted into the cytotoxic 6-thioguanine nucleotides, which will accumulate in the bone marrow and cause excessive toxicity. The activity of TPMT is measured by the nanomoles of 6-methylmercaptopurine (inactive metabolite) produced per 1 mL of packed red blood cells,(U/mL). TPMT phenotype testing does not replace the need for clinical monitoring of patients treated with thiopurine drugs. ??Genotype for TPMT cannot be inferred from TPMT activity (phenotype). Phenotype testing should not be requested for patients currently treated with thiopurine drugs, as results will be falsely low. Current TPMT phenotype may not reflect future TPMT phenotype, particularly in patients who received blood transfusion within 30-60 days of testing. ??TPMT enzyme activity can be inhibited by several drugs such as: naproxen (Aleve), ibuprofen (Advil,Motrin), ketoprofen(Orudis), furosemide (Lasix), sulfasalazine (Azulfidine),mesalamine (Asacol), olsalazine (Dipentum), mefenamic acid (Ponstel), thiazide diuretics, and benzoic acid inhibitors. ??TPMT inhibitors may contribute to falsely low results; patients should abstain from these drugs for at least 48 hours prior to TPMT testing. ??Falsely low results may also occur as a result of inappropriate specimen handling. Blood specimen (specimen) BLOOD SPECIMEN / Unknown 05/29/2012 4:16 AM [employer] 05/29/2012 4:23 AM [employer] Aylin Rebollar MD LAB - CHEMISTRY [facility] [email or web address] [address] [place] [address] * ENDOSCOPY, COLON, DIAGNOSTIC (05/27/2012 9:50 PM [employer]) Narrative [facility] - 05/27/2012 9:50 PM [employer] Procedure Note Luz Maria Sanchez MD - 05/27/2012 9:50 PM CST Luz Maria Sanchez MD GI PROCEDURE ORDERAB LES Performing Organization Address City/[facility]/ZIP Co de Phone Number [facility] [address] [place] [address] * EGD (05/27/2012 9:50 PM [employer]) Narrative [facility] - 05/27/2012 9:50 PM [employer] Procedure Note Luz Maria Sanchez MD - 05/27/2012 9:50 PM CST Luz Maria Sanchez MD GI PROCEDURE ORDERAB LES Performing Organization Address [facility] de Phone Number [facility] [address] [place] [address] * HELICOBACTER PYLORI UREASE (05/27/2012 1:33 PM [employer]) Helicobacter pylori Urease Initial Negative Negative 05/28/2012 3:30 PM [employer] [facility] Helicobacter pylori Urease Final Negative Negative 05/28/2012 3:30 PM [employer] [facility] Comment:This is an appended report. These results have been appended to a previously preliminary verified report. Miscellaneous samples (specimen) GASTRIC ANTRAL BIOPSY SPECIMEN / Unknown 05/27/2012 1:33 PM [employer] 05/27/2012 2:11 PM [employer] Luz Maria Sanchez MD LAB - MICROBIOLOGY O RDERABLES Performing Organization Address [facility] de Phone Number [facility] [address] [place] [address] * TISSUE TRANSGLUTAMINASE AB IGA (05/14/2012 2:13 PM [employer]) Tissue Transglutaminase (tTG) Ab, IgA 4 0 - 19 Units 05/16/2012 6:52 AM [email or web address] Comment: INTERPRETIVE INFORMATION: Tissue Transglutaminase (tTG) Antibody, IgA 19 Units or less: Negative 20-30 Units: Weak Positive 31 Units or greater: Moderate to Strong Positive Presence of the tissue transglutaminase (tTG) IgA antibody is associated with gluten-sensitive enteropathies such as celiac disease and dermatitis herpetiformis. tTG IgA antibody concentrations greater than or equal to 100 Units usually correlate with results of duodenal biopsies consistent with a diagnosis of celiac disease. For antibody concentrations greater than 20 Units but less than 100 Units, additional testing for endomysial (AGUILAR) IgA concentrations may improve the positive predictive value for disease. Blood specimen (specimen) BLOOD SPECIMEN / Unknown 05/14/2012 2:13 PM [employer] 05/14/2012 2:20 PM [employer] Luz Maria Sanchez MD LAB - SEROLOGY ORDER [place] [employer] [facility] [address] [place] [address] * IGA BLOOD (05/14/2012 2:13 PM [employer]) IgA 348 65 - 421 mg/dL 05/14/2012 3:11 PM [employer] [facility] Blood specimen (specimen) BLOOD SPECIMEN / Unknown 05/14/2012 2:13 PM [employer] 05/14/2012 2:22 PM [employer] Luz Maria Sanchez MD LAB - CHEMISTRY [facility] Performing Organization Address [facility] Co de Phone Number [facility] [place] [address] * CULTURE STOOL PANEL (05/14/2012 2:06 PM [employer]) Culture SEE BELOW 05/16/2012 6:07 AM [employer] [facility] [employer]AC[employer] Comment: - Final - Negative for Shiga toxin by ?? immunoassay CULTURE No growth of Salmonella, ?? Shigella, Campylobacter, ?? Yersinia, E.coli 0157-H7 Stool specimen (specimen) STOOL SPECIMEN / Unknown 05/14/2012 2:06 PM [employer] 05/14/2012 2:22 PM [employer] Luz Maria Sanchez MD LAB - MICROBIOLOGY O RDERABLES [facility] [employer] [address] [facility] [place] [address], [facility] Care Teams Air Battle Manager Relationship Specialty Start Date End Date Gold Nielsen MD [facility] [place] [address] PCP - General Family Medicine 05/13/12
--- OUTSIDE RECORDS SUMMARY | 2024-05-12 03:28 | XMS_ITS | Clinical Summary ---
Author Organization [facility] Address [address] [place] [address] Care Team Providers Care Laborer Name Role Phone Gold Nielsen MD Primary Care Provider [phone]- [phone] Source Comments [facility],non-owned Affiliates and Associated Physician Practices is amultiple site organization consisting of ambulatory clinics and [place] sitesin [place]. This disclosure is being madepursuant to the Care Everywhere program and may not contain all information available regarding this patient. Last updated 18.[facility] Allergies Active Allergy Reactions Criticality Noted Date Comments Amoxicillin Rash Low 05/14/2012 Penicillins Rash Low 05/14/2012 Medications * Be aware that medications may not be up to date on this document. Alwaysverify current medications with the patient. Medication Sig Dispensed Refills Start Date End Date Status loratadine (CLARITIN) 10 MG tablet Take 10 mg by mouth once daily Active CYCLAFEM 1 1-35 MG-MCG tablet 6 09/05/2015 Active ranitidine (ZANTAC) 150 MG tablet Take 1 Tab by mouth 2 times daily as needed for Heartburn 60 Tab 3 09/18/2015 Active mupirocin (BACTROBAN) 2 % ointment Apply to affected area 2 times daily 22 g 05/23/2016 Active inFLIXimab (REMICADE) injection 900mg IV Q 6 weeks 08/26/2016 Active buPROPion SR 12hr (WELLBUTRIN-SR) 150 MG tablet Take 150 mg by mouth 2 times daily Active ALPRAZolam (XANAX) 0.25 MG tablet Take 0.25 mg by mouth 3 times daily as needed for Anxiety Active Active Problems Patient Care Coordination No te Formatting of this note migh t be different from the original. Consented for [employer] 11/02: Matilde gave permission to talk to mom about any and all care. Problem Noted Date Diagnosed Date Colitis 05/28/2012 Chronic ulcerative colitis without complication 05/28/2012 Overview (05/31/2012): 2 month history of diarrhea and bloody stool without abdominal pain. This started in March after completing antibiotics for URI, however continued to persist and had not improved. EGD and colonoscopy on 05/27 revealed pancolitis, esophagitis, and patchy gastritis, biopsy revealed mild chronic changes in esophagus and stomach, and severe active colitis in all sections of colon. Started on prednisolone in hospital and thiopurine methyltransferase level drawn, but pending. At time of discharge given 6 week taper of prednisone (60mg to 10mg), 50mg daily of azathioprine, 800mg mesalamine TID, metrinizadole 500mg TID to complete 14 day course, and 20mg nexium daily. Most likely UC + gastritis/GERD component, however at this point difficult to confidently differentiate vs Crohn's. Will need f/u CBCs for imuran, f/u TPMT lab, and GI clinic f/u in 1 month. Bloody diarrhea 05/27/2012 Microcytic anemia 05/27/2012 Overview (05/31/2012): Had microcyctosis on outpatient labs in Apr 2012, however preop labs 05/27 showed anemia, which is new. Most likely GI loss due to significant inflammation and reduced dietary intake/absorption of iron. Continue to monitor with outpatient CBCs for azathioprine monitoring, may resolve with colitis treatment and/or consider iron supplementation when GI symptoms improve. Immunizations Name Administration Dates Next Due INFLUENZA VACCINE, QUADR. (F LUZONE; FLULAVAL; FLUARIX; AFLURIA QUADRIVALENT; 6MO+), 0.5 ML (IIV4) 01/19/2014 Family History Medical History Relation Name Comments Hypertension Father Kidney Disease Father congenital ki dney disease of some sort, one nonfunctioning kidney Cancer - Uterine Maternal Grandmother Other Maternal Uncle Diverticuliti s Thyroid Disease Mother hypothyroid on synthroid Lung Cancer Paternal Grandfather Relation Name Status Comments Father Maternal Grandmother Maternal Uncle Mother Paternal Grandfather Social History Tobacco Use Types Packs/Day Years [...] Oxygen Concentration 100% 05/27/2012 2 :30 PM GOLF COURSE EQUIPMENT OPERATOR Weight 103.1 kg (227 lb 4.7 oz) 017 11:38 AM CDT Height 170 cm (5' 6.93) 01/29/2017 11: 38 AM CDT Body Mass Index 35.67 01/29/2017 11:38 AM CDT Plan of Treatment Health Maintenance Due Date Last Done Comments PAP SMEAR 1997 HIV SCREENING 2012 HPV VACCINE (1 - 3-dose series) 2012 DTAP/TDAP/TD VACCINES (1 - Tdap) 2016 HEPATITIS B VACCINE (1 of 3 - 19+ 3-dose series) 2016 COVID-19 VACCINE (1 - 2023-2 5 season) 2023 INFLUENZA VACCINE (#1) 2023 01/19/2014 DEPRESSION SCREENING 04/14/2024 ZOSTER VACCINE (1 of 2) 10/26/2047 HEPATITIS C SCREENING Completed 04/20/2014 HIB VACCINE Aged Out No longer eligi ble based on patient's age to complete this topic MENINGOCOCCAL (Group B) VACCINE Aged Out No longer eligible based on patient's age to complete this topic MENINGOCOCCAL VACCINE Aged Out No yoav rober eligible based on patient's age to complete this topic PNEUMOCOCCAL VACCINE Aged Out No long er eligible based on patient's age to complete this topic Procedures Procedure Name Priority Date/Time Associated Diagnosis Comments HEPATITIS SCREEN ACUTE Routine 04/20/2014 11:45 AM GOLF COURSE EQUIPMENT OPERATOR Colitis from Last 3 Months or Most Recently Relevant to Health Maintenance Results * HEPATITIS SCREEN ACUTE (04/20/2014 11:45 AM GOLF COURSE EQUIPMENT OPERATOR) HAV Antibody IgM Non Reactive Non Reactive 04/22/2014 8:50 AM GOLF COURSE EQUIPMENT OPERATOR [facility] HBsAg Non Reactive Non Reactive 04/22/2014 8:50 AM [facility] HBsAb Non Reactive Non Reactive 04/22/2014 8:50 AM [facility] HBc Antibody IgM Non Reactive Non Reactive 04/22/2014 8:50 AM [facility] HCV Antibody Screen Non Reactive Non Reactive 04/22/2014 8:50 AM [facility] Blood BLOOD SPECIMEN / Unknown 04/20/2014 11:45 AM GOLF COURSE EQUIPMENT OPERATOR 04/20/2014 12:19 PM GOLF COURSE EQUIPMENT OPERATOR Narrative [facility] - 04/22/2014 8:50 AM GOLF COURSE EQUIPMENT OPERATOR Nonreactive - Antibodies to HCV were not detected, result does not exclude early acute HCV infection. Nonreactive - Antibodies to HCV were not detected, result does not exclude early acute HCV infection. Luz Maria Sanchez MD LAB - CHEMISTRY [place] Organization Address City/State/[facility] Co de Phone Number [facility] [address] [address] from Last 3 Months or Most Recently Relevant to Health Maintenance Care Teams Laborer Relationship Specialty Start Date End Date Gold Nielsen MD [address] [place] [phone] PCP - General Family Medicine 05/13/12
--- OUTSIDE RECORDS SUMMARY | 2024-05-12 03:28 | XMS_ITS | Encounter Summary ---
Author Organization [facility] Address [address] [place] [address] Care Team Providers Care Resource Recovery Engineer Name Role Phone Gold Nielsen MD Primary Care Provider [phone]- [phone] Reason for Visit * Reason Onset Date Comments Scheduling 01/05/2015 Encounter Details Date Type Department Care Team (Late st Contact Info) Description 01/05/2015 Telephone [facility] [place] [address] Luz Maria Sanchez MD [address] [place] [id number] Scheduling Social History Tobacco Use Types Packs/Day Years [...] encounter Miscellaneous Notes * Telephone Encounter - Sana Hensley RN - 01/06/2015 3:25 PM CDT Spoke to mother informing her of plan per Dr. Sanchez. Lab orders faxed. Scope cancelled. Transferred to appt line for follow up. She verbalized understanding and will keep us updated. [employer] ([place]) phone [phone] fax # [phone] * Telephone Encounter - Luz Maria Sanchez MD - 01/06/2015 3:03 PM CDT 1Tlaked to Matilde's mom. We were planning on scope for 1 year post Remicade. It is suggestd but not mandated that it is done. Matilde reporteldy asymptomatic - stooling 1-2 times per day, no abdo pain, no nocturnal stooling, no blood in the stool Ok to cancel scope. Nurses please arrange for fecal calprotectin collection as non invasive marker for intestinal inflammation. Thanks! * Telephone Encounter - Dasia Jacques - 01/06/2015 12:42 PM CDT Mom calling again to see if it is necessary for Matilde to have colonoscopy on Friday. * Telephone Encounter - Dasia Jacques - 01/05/2015 10:43 AM CDT Mom calling. Matilde really wants to cancel colonoscopy. She is reportedly doing much better and has been for some time. She has no episodes of diarrhea. Last Remicade 01/04. Please call to discuss. documented in this encounter Plan of Treatment Not on file documented as of this encounter Visit Diagnoses Diagnosis Colitis- Primary Other and unspecified noninfectious gastroenteritis and colitis Inflammatory bowel disease Other and unspecified noninfectious gastroenteritis and colitis documented in this encounter Care Teams Resource Recovery Engineer Relationship Specialty Start Date End Date Gold Nielsen MD [address] [place] [phone] PCP - General Family Medicine 05/13/12 documented as of this encounter
--- OUTSIDE RECORDS SUMMARY | 2024-05-12 03:28 | XMS_ITS | Encounter Summary ---
Author Organization [facility] Address [address] [place] [address] Care Team Providers Care Metrologist Name Role Phone Gold Nielsen MD Primary Care Provider [phone]- [phone] Reason for Visit * Reason Onset Date Comments Question 11/20/2016 Encounter Details Date Type Department Care Team (Late st Contact Info) Description 11/20/2016 Telephone [facility] [place] [address] Luz Maria Sanchez MD [address] [place] [id number] Question Social History Tobacco Use Types Packs/Day [...] encounter Miscellaneous Notes * Telephone Encounter - Toma Diane RN - 11/28/2016 11:26 AM CDT Spoke to mom, at this time Matilde will not come in for an appointment. Reviewed with mom that until she has a follow up appointment, we will not be able to order any medications. Mom understands andwill keep talking with her. She will update us with any new information. * Telephone Encounter - Toma Diane RN - 11/20/2016 4:00 PM CDT Spoke to mom. States that Matilde's brother moved in and that has cause her some anxiety. She now believes she is having a flare as she is having increased bowel movements. No blood, no fever. Reviewed with mom that I discussed this with Dr. Sanchez. Matilde is over due for an appointment and she has to be seen. After she is seen, we would be willing to set up Remicade at home with [facility]. Mom will discuss with Matilde and call the office tomorrow. * Telephone Encounter - Anni Esparza - 11/20/2016 3:12 PM CDT Mom reports that they are trying to transition to adult GI but due to Matilde's anxiety have been unable to get her to leave the house. Last Remicaid appt was missed due to the same reason. Patient is now pooping more often. Requesting call back, has questions about medication. documented in this encounter Plan of Treatment Not on file documented as of this encounter Visit Diagnoses Not on filedocumented in this encounter Care Teams Metrologist Relationship Specialty Start Date End Date Gold Nielsen MD [address] [place] [phone] PCP - General Family Medicine 05/13/12 documented as of this encounter
--- OUTSIDE RECORDS SUMMARY | 2024-05-12 03:28 | XMS_ITS | Data Portability ---
Author Organization [facility] Address [address] [place] [address] [place] [address] Care Team Providers Care State Auditor Name Role Phone DIA CHESTER Primary Care Provider [phone] Assessment No assessment recorded. Plan of Treatment Reminders Order Date Submit Date Provider Last Modified By Organization Details Last Modified Time Details Appointments None recorded. Lab test, urine 2022 023 [facility], [address], [place], [address], 3 11:59:53 beta-HCG, quantitativ e, serum or plasma 2023 024 [facility] (Lab), [address], [place], [address], 4 03:18:11 test, urine 2023 024 [facility] [address], [place], [address], 4 15:14:52 Referral None recorded. Procedures None recorded. Surgeries None recorded. Imaging US, pelvis 2022 023 [email or web address] [facility], [address], [place], [address], 3 22:34:31 US, transvagina l 2022 023 [email or web address] [facility], [address], [place], [address], 3 22:34:31 Medication Orders Slynd 4 mg (28) tablet 2022 023 [id number], [address] [place], [address], 3 12:06:43 Patient TargetsNo targets recorded. Patient InstructionsNo instructions recorded. Reason for Referral None Reported. Results Created Date Observation Date Name Description Value Unit Range Abnormal Flag Note LastModifiedBy Organization Detail LastModifiedTime 11/15/1911/14/2022 IMAGE GUIDE D PAP, REFLE X HPV IF ASCUS ONLY image guided Pap, reflex HPV ASCUS only SEE RESULT S BELOW CASE REPOR T: Cytol ogy Gynec ologi ralf Repor t Case: [id number] Autho josiah saleem Provi carl: Yoselyn Lopez, CORINNA Colle cted: 11/14 1534 Order ing Locat ion: [place] [facility] Recei alexander: 11/15 0811 First Scree n: Tejal Leroy ret, CT Speci men: Scree phill Pap - Image d, Cervi x STATE MENT OF ADEQU ACY: Satis facto ry for evalu ation Trans forma tion zone compo nent prese nt FINAL DIAGN OSIS: Negat rebecca for Intra epith elial Montez fernandez or Kimberly mitchell (NIL) . Elect janette desai basil d by Tejal Leroy ret, CT on 023 at 9:50 AM ----- ----- ----- ----- ----- ----- ----- ----- ----- ----- ----- ----- ----- ----- ----- ----- ----- ---- COMME NT: This speci men was revie wed by a Cytot echno logis t and/o r Patho logis t (as indic ated in this repor t) after evalu ation using the Thinp rep Imagi ng Syste m. CLINI RALF INFOR MATIO N: Menst rual Statu s: LMP (if appli cable ): Clini ralf Histo ry/Pr eviou s Pap: Type of Neopl david (if appli cable ): Signi fican t Clini ralf Findi ngs: Other Histo ry: Hormo emi (if appli cable ): PAP EDUCA NATHALIA L NOTE: The Pap Test is a scree phill test with an inher ent false negat rebecca rate. Liqui d-bas ed sampl ing may decre ase, but will not elimi dimas, false negat rebecca resul ts. A negat rebecca resul t does not precl ude the prese nce and/o r devel opmen t of disea se, since the prese nce of abnor mal cells in the sampl e depen ds on the locat ion of the lesio n and sampl ing techn ique. Estevan nued regul ar scree phill is the best metho d of cance r preve ntion . If repor zeferino cytol ogic findi ng do not corre late with physi ralf and/o r histo rical findi ngs, furth er inves tigat ion is recom eli d, as clini purnima flores nted. Not Available [facility] (Lab) [address] , [place], [address], 11/17/2022 10:53:37 11/15/19 23 11/14/2022 TRICH OMONA S VAGIN DARRICK (RRNA ) trichomonas vaginalis ribosomal RNA (rrna) Negati ve negati ve Not Available [facility] (Lab) [address], [place], [address], 11/17/2022 10:53:37 11/15/19 23 11/14/2022 CT/GC (ANJALI) , THINP REP VIAL chlamydia trachomatis, PCR Negati ve negati ve Not Available [facility] (Lab) [address], [place], [address], 11/17/2022 10:53:38 11/15/19 23 11/14/2022 CT/GC (ANJALI) , THINP REP VIAL neisseria gonorrhoeae, PCR Negati ve negati ve Not Available [facility] (Lab) [address], [place], [address], 11/17/2022 10:53:38 12/12/19 23 12/11/2022 pregn damon test, urine HCG negati ve Not Available [facility] [address], [place], [address], 12/11/2022 11:56:13 10/07/19 24 10/07/2023 BHCG, QUANT ITATI VE B-HCG 11.7 mIU/m L This assay was perfo rmed using [employer] ratio n reage nts and test kits. Value s obtai estrada with other assay metho ds or kits canno t be used inter arellano eably . Refer ence Range s: Non-p regna nt, preme nopau aydee women : 0.0-5 .3 mIU/m L Postm enopa usal women : 0.0-7 .0 mIU/m L Marquita l Pregn damon: Gesta nathalia l Age bHCG Conc. - mIU/m L 3 Weeks 5.8 - 71.7 4 Weeks 9.5 - 750 5 Weeks 217-7 138 6 Weeks 158 - 31,79 5 7 Weeks 3,697 - 162,5 63 8 Weeks 32,06 5 - 149,5 71 9 Weeks 63,80 3 - 151,4 10 10 Weeks 46,50 9 - 186,9 77 12 Weeks 27,83 2 - 210,6 12 14 Weeks 13,95 0 - 62,53 0 15 Weeks 12,03 9 - 70,97 1 16 Weeks 9,040 - 56,45 1 17 Weeks 8,175 - 55,86 8 18 Weeks 8,099 - 58,17 6 Not Available [facility] (Lab) [address], [place], [address], 10/08/2023 03:18:11 10/07/19 24 10/07/2023 pregn damon test, urine HCG positi ve Not Available [facility] [address], [place], [address], 10/07/2023 15:14:42 10/10/19 24 10/10/2023 BHCG, QUANT ITATI VE B-HCG 6.8 mIU/m L This assay was perfo rmed using [employer] reage nts and test kits. Value s obtai estrada with other assay metho ds or kits canno t be used inter arellano eably . Refer ence Range s: Non-p regna nt, preme nopau aydee women : 0.0-5 .3 mIU/m L Postm enopa usal women : 0.0-7 .0 mIU/m L Marquita l Pregn damon: Gesta nathalia l Age bHCG Conc. - mIU/m L 3 Weeks 5.8 - 71.7 4 Weeks 9.5 - 750 5 Weeks 217-7 138 6 Weeks 158 - 31,79 5 7 Weeks 3,697 - 162,5 63 8 Weeks 32,06 5 - 149,5 71 9 Weeks 63,80 3 - 151,4 10 10 Weeks 46,50 9 - 186,9 77 12 Weeks 27,83 2 - 210,6 12 14 Weeks 13,95 0 - 62,53 0 15 Weeks 12,03 9 - 70,97 1 16 Weeks 9,040 - 56,45 1 17 Weeks 8,175 - 55,86 8 18 Weeks 8,099 - 58,17 6 Not Available [facility] (Lab) [address], [place], [address], 10/11/2023 07:18:39 10/24/19 24 10/24/2023 BHCG, QUANT ITATI VE B-HCG 1.6 mIU/m L This assay was perfo rmed using [employer] reage nts and test kits. Value s obtai estrada with other assay metho ds or kits canno t be used inter arellano eably . Refer ence Range s: Non-p regna nt, preme nopau aydee women : 0.0-5 .3 mIU/m L Postm enopa usal women : 0.0-7 .0 mIU/m L Marquita l Pregn damon: Gesta nathalia l Age bHCG Conc. - mIU/m L 3 Weeks 5.8 - 71.7 4 Weeks 9.5 - 750 5 Weeks 217-7 138 6 Weeks 158 - 31,79 5 7 Weeks 3,697 - 162,5 63 8 Weeks 32,06 5 - 149,5 71 9 Weeks 63,80 3 - 151,4 10 10 Weeks 46,50 9 - 186,9 77 12 Weeks 27,83 2 - 210,6 12 14 Weeks 13,95 0 - 62,53 0 15 Weeks 12,03 9 - 70,97 1 16 Weeks 9,040 - 56,45 1 17 Weeks 8,175 - 55,86 8 18 Weeks 8,099 - 58,17 6 Not Available [facility] (Lab) [address], [place], [address], 2023 07:12:15 11/22/19 23 11/21/2022 , pelvi s No observ ation record ed. [email or web address] [facility] [address], [place], [address], 11/21/2022 18:55:26 11/22/19 23 11/21/2022 US, trans vagin al No observ ation record ed. [email or web address] [place] [address], [place], [address], 11/21/2022 18:55:19 11/22/19 23 11/21/2022 US, pelvi s No observ ation record ed. naida Childs [address], [place], [address], 12/03/2022 11:51:35 Result Notes None recorded. Procedures Surgical History Date Name Laterality Status Provider Name and Address Organization Details Recorded Time 09/04/19 24 termination of completed YARA [facility] [address], [place], [address], [facility] 10/07/2023 14:56:11 12/12/19 23 IUD Removal completed YARA [facility] [address], [place], [address], [facility] 12/11/2022 12:43:36 11/15/19 23 Date of Last Pap Smear completed Raquel Chen [facility] 05/01/2023 13:38:10 06/26/19 23 Date of Last Colonoscopy completed Dee Dee Vargas [facility] 12/11/2022 11:29:39 04/14/19 23 Colonoscopy completed Raquel [facility] 04/21/2023 11:30:23 04/14/19 17 Colonoscopy completed Raquel [facility] 04/21/2023 11:30:18 04/14/19 15 Colonoscopy completed Raquel [facility] 04/21/2023 11:30:15 Imaging Results Imaging Date Name Status LastModified by Organization Details LastModified Time 11/21/2022 US, pelvis completed [email or web address] [place] [address], [place], [address], 11/21/2022 18:55:26 11/21/2022 US, transvaginal completed [email or web address] [address], [place], [address], 11/21/2022 18:55:19 11/21/2022 US, pelvis completed naida Childs [address], [place], [address], 12/03/2022 11:51:35 Procedure Notes None recorded. Medical Equipment None Reported. Allergies Allergen ID Allergen Name Allergen Category Reaction Reaction Severity Criticality Documentation Date Start Date Code Code System Note Provider Name and Address Organization Details Recorded Time 14450 Product containin g penicilli n and antibioti c (product) medicatio n Not available Not available Not available 11/14/2022 02163 05 SNOMED Dee Dee pedersen [facility] [place] - [facility] 14:45:37 Medications Name Sig Start Date Stop Date Status Note LastModified by Organization Details LastModified Time Mirena 21 mcg/24 hr (up to 8 years) 52 mg intrauter ine device 12/11 completed Prescrib ed Elsewher e: Yes Loca tion: [facility] M odify By: [email or web address] E ncounter DateTime : 08/12/19 19 11:30:00 AM Not Available Not Available Not Available prednison e 10 mg tablet PLEASE SEE ATTACHED FOR DETAILED DIRECTIO NS 11/14 completed Not Available Not Available Not Available clindamyc in HCl 300 mg capsule TAKE 1 CAPSULE BY MOUTH THREE TIMES A DAY 04/21 completed Not Available Not Available Not Available prednison e 5 mg tablet PLEASE SEE ATTACHED FOR DETAILED DIRECTIO NS 11/14 completed Not Available Not Available Not Available azathiopr ine 50 mg tablet TAKE 3 TABLETS BY MOUTH EVERY DAY active Not Available Not Available No t Available Xanax 0.25 mg tablet take 1 tablet by oral route 3 times every day 11/14 completed Prescrib ed Elsewher e: Yes Loca tion: [facility] M odify By: smcaley Rob pedersen DateTime : 07/08/19 19 02:45:00 PM Not Available Not Available Not Available fluticaso ne propionat e 50 mcg/actua tion nasal spray,mariano pension 2 SPRAY INTRANAS ALLY DAILY FOR 14 DAYS ADMINIST ER INTO EACH NOSTRIL 11/14 completed Not Available Not Available Not Available Nexium active Not Available Not Availa ble Not Available mesalamin e 1.2 gram tablet,de layed release TAKE 4 TABLETS BY MOUTH EVERY DAY active Not Available Not Available No t Available Jessica 0.35 mg tablet active Not Available Not Available Not Available sodium,po tassium,m ag sulfates 17.5 gram-3.13 gram-1.6 gram oral soln TAKE DIRECTED . 11/14 completed Not Available Not Available Not Available Humira 10 mg/0.2 mL subcutane ous syringe kit 11/14 completed Prescrib felecia French e: Yes Loca tion: [facility] Maged odify By: austin blanco DateTime : 09/02/19 03:45:00 PM Not Available Not Available Not Available Slynd 4 mg (28) tablet TAKE 1 TABLET BY MOUTH EVERY DAY active Not Available Not Available No t Available Vitals Date Recorded Body height Body mass index (BMI) Body weight Systolic blood pressure Diastolic blood pressure Provider Name and Address Organization Details Last Updated DateTime 12/03/2022 170.18 cm 34.6 kg/m2 585446.9 1 g 119 mm[Hg] 78 mm[Hg] Alisa Sveta [facility] 3 10:29:09 Date Recorded Body height Body mass index (BMI) Body weight Systolic blood pressure Diastolic blood pressure Provider Name and Address Organization Details Last Updated DateTime 12/11/2022 170.18 cm 34.6 kg/m2 569218.9 1 g 120 mm[Hg] 78 mm[Hg] Dee Dee Vargas [facility] 3 11:29:34 Date Recorded Body height Body mass index (BMI) Body weight Systolic blood pressure Diastolic blood pressure Provider Name and Address Organization Details Last Updated DateTime 04/21/2023 170.18 cm 35.1 kg/m2 245740.6 9 g 114 mm[Hg] 74 mm[Hg] Raquel Chen [facility] 4 11:26:46 Date Recorded Body height Body mass index (BMI) Body weight Systolic blood pressure Diastolic blood pressure Provider Name and Address Organization Details Last Updated DateTime 10/07/2023 170.18 cm 35.1 kg/m2 210668.6 9 g 118 mm[Hg] 79 mm[Hg] Meagan Orosco [facility] 4 14:22:16 Social History Question Answer Notes LastModified by Organizat ion Details LastModified Time Tobacco Smoking Status Current Every Day Smoker Raquel bonner, [facility] 04/21/2023 11:27:01 What Is Your Level Of Alcohol Consumption? None Information not available 11/14/2022 Are You Blind Or Do You Have Difficulty Seeing? No Information not available 11/14/2022 What Is Your Level Of Caffeine Consumption? Occasional Information not available 12/11/2022 How Much Tobacco Do You Chew? None Information not available 12/11/2022 In The 14 Days Before Symptom Onset, Have You Had Close Contact With A Laboratory-confir med COVID-19 While That Case Was Ill? No Information not available 12/11/2022 In The 14 Days Before Symptom Onset, Have You Had Close Contact With A Person Who Is Under Investigation For COVID-19 While That Person Was Ill? No Information not available 12/11/2022 Have You Been To An Area Known To Be High Risk For COVID-19? No Information not available 12/11/2022 Are You Deaf Or Do You Have Serious Difficulty Hearing? No Information not available 11/14/2022 What Type Of Diet Are You Following? REGULAR [email or web address] Information not available 04/21/2023 What Is The Highest Grade Or Level Of School You Have Completed Or The Highest Degree You Have Received? [id number] Information not available 12/11/2022 What Is Your Occupation? Unemployed Information not available 12/11/2022 Are There Any Guns Present In Your Home? No Information not available 12/11/2022 Do You Use Protection During Sex? No Information not available 12/11/2022 Do You Use Your Seat Belt Or Car Seat Routinely? Yes [email or web address] Information not available 04/21/2023 Do You Have Smoke And Carbon Monoxide Detectors In Your Home? No Information not available 12/11/2022 At What Age Did You Start Smoking Tobacco? 17 Information not available 12/11/2022 How Much Tobacco Do You Smoke? 1 PPD Information not available 12/11/2022 Do You Feel Stressed (tense, Restless, Nervous, Or Anxious, Or Unable To Sleep At Night)? [id number] Information not available 12/11/2022 Do You Use Any Illicit Or Recreational Drugs? No Information not available 12/11/2022 Do You Use Sunscreen Routinely? No Information not available 12/11/2022 How Many Years Have You Smoked Tobacco? 10 Information not available 12/11/2022 Have You Used IV Drugs? No Information not available 12/11/2022 Sex: Unknown Functional Status Question Answer Note LastModified by Organizat ion Details LastModified Time Do you have difficulty walking or climbing stairs? No [email or web address] Information not available 04/21/2023 Are you able to walk? YESWOREST Information not available 11/14/2022 Are you able to care for yourself? Yes [email or web address] Information not available 04/21/2023 Do you have difficulty dressing or bathing? No [email or web address] Information not available 04/21/2023 What is your exercise level? Occasional Information not available 12/11/2022 Mental Status None recorded. Family History Relationship Description Onset Age of this Age Resolved Age Notes LastModified by Organization Details LastModified Time Maternal Uncle Diabetes mellitus [email or web address] Not available 06/2022 14:48:15 Maternal Uncle Mental disorder [email or web address] Not available 05/01 13:45:57 Maternal Uncle Essential hypertension [email or web address] Not available 14:13:02 Mother Essential hypertension [email or web address] Not available 14:13:02 Mother Disorder of thyroid gland [email or web address] Not available 06/2022 14:49:19 Mother Mental disorder [email or web address] Not available 05/01 13:46:06 Father Essential hypertension [email or web address] Not available 14:13:02 Father Mental disorder [email or web address] Not available 05/01 13:35:42 Maternal Aunt Mental disorder [email or web address] Not available 05/01 13:35:42 Maternal Aunt Disorder of thyroid gland [email or web address] Not available 05/01 13:35:53 Brother Mental disorder [email or web address] Not available 05/01 13:35:42 Maternal Grandmother Hypercholest erolemia [email or web address] Not available 05/01 13:45:46 Maternal Grandmother Disorder of thyroid gland [email or web address] Not available 05/01 13:47:49 Maternal Grandmother Malignant tumor of ovary [email or web address] Not available 05/01 13:49:06 Maternal Grandmother Malignant neoplasm of uterus [email or web address] Not available 05/01 13:49:29 Paternal Grandfather Essential hypertension [email or web address] Not available 14:13:02 Maternal Grandfather Essential hypertension [email or web address] Not available 14:13:02 Notes:Brother: psychiatric d isease Father: Hypertension, psychiatric disease Maternal aunt: Thyroid disease, psychiatric disease Maternal grandfather: high cholesterol, Hypertension, psychiatric disease Maternal grandmother: Cancer, cervical, Cancer, ovarian, Thyroid disease, Cancer, uterine Maternal uncle: psychiatric disease, Hypertension Mother: Thyroid disease, Hypertension, psychiatric disease Paternal grandfather: Hypertension Medical History Condition Response Allergies (Food, seasonal, environmental ) N Other N Breast Cancer N Drug/Latex Allergies/Reactions N Blood Transfusion N Dermatologic Disorders N Lung Disease N Defects or Inherited Disease N Breast Problem N Gestational Diabetes N Hematologic disorders N Anesthesia Complications N History of STI N Deep Vein Thrombosis N Polycystic ovary syndrome N Anxiety Disorder Y Autoimmune disease N Arthritis N Infertility N Polyps N Acid Reflux (GERD) Y History of abnormal pap N Cancer N Stroke N Varicosities N Neurologic/Epilepsy N Endometriosis N High Cholesterol N Headaches N Fibromyalgia N Kidney Disease N Heart Problems N Kidney or Bladder Problems N Thyroid Problems N GI Problems Y Eating Disorder N Anemia Y Art (IVF or FET) N Psychiatric Illness N Ovarian Cancer N Diabetes N Pulmonary (TB, Asthma) N Hepatitis/Liver Disease N No Past Medical History N Eczema N Urinary Tract Infection N Abuse/Domestic Violence N Asthma N Trauma/Violence N Depression/ depression Y Heart Disease N Pre-Eclampsia N Hypertension N Osteoporosis N Thrombophilias N Gynecological History Statement/Question Response Flow Moderate Date of Last Mammogram Date of LMP 2022 N Was last menstrual period normal N STIs/STDs N HPV Vaccine N Duration of Flow (days) 6 Current Control Method BCPs Date of control 08/11/2018 Date of Last Colonoscopy 06/25/2022 Sexually Active? Y IUD Menses Monthly Y Date of DEXA bone scan Age of first menstrual cycle 14 Date of Last Pap Smear 11/14/2022 Sexual Problems? N LMP Approximate N Obstetrics History GPAL:G 1 P 0 0 1 0 Type Value Induced 1 Living 0 Total 1 Past Encounters Encounter ID Performer Location Encounter Start Date Encounter Closed Date Diagnosis/Indication Diagnosis SNOMED-CT Code Diagnosis ICD10 Code Diagnosis Note [id number] YARA [facility]ilo [facility] [address] [address] 11/14/2022 14:08:34 11/14/2022 15:13:40 Gynecologic examination 57169192 Z01.419 Take Calcium with Vitamin D 1200mg daily if not receiving in daily diet. It is strongly advised to have an annual flu shot and up can obtain at most pharmacies . If you have not had a TDap shot in the last 10 years you should obtain one as well. Discussed with patient & provided with informatio n regarding Gardisil vaccine to prevent the 4 strains for HPV that cause cervical cancer if under age 26. Encourage safe sexual practices, to use condoms and limit partners if not already in a monogamous relationsh ip. Do monthly self breast exams. Have mammogram yearly or every other year depending on family history. BRCA testing is now available for patients with strong genetic history of female cancer. If interested contact the office. Engage in daily exercise of low impact aerobic exercise 45-60 minutes 4-5 times weekly. Avoid tobacco and illicit drugs as well as using moderation with alcohol intake less than 1-2 8 oz beverages daily. This lifestyle behavior pattern will lead to less health conditions and longer life span. If BMI greater than 25 weight watchers or dietary consult advised. Patient received above instructio ns, and questions have been answered. If you have any questions please call or respond to this email. Patient was made aware of the patient portal and may obtain a paper copy of today's plan if desired. [facility], inserted 08/11/2018p eriods longer and more spotting over the past 1 year. Postcoital bleeding as well(+) IUD strings noted on examTVUS ordered for further evaluation no hx of abnormal papslast pap 2019pap updated todaySTI testing added to papBlood STI testing declinedRT C for pelvic u/s and f/u Time spent in visit is a total of 25 mins with at least 50% of visit consisting of counseling and review of plan of care. Irregular periods 491515 07 N92.6 Contracept ion care management 264727898 Z30.9 [id number] Shelbie Hua [facility] [address],[place] [address] 11/21/2022 15:35:45 11/21/2022 16:15:49 Irregular periods 16803368 N92.6 [id number] Yoselyn Lopez CORINNA [facility] [address],[place] [address] 12/03/2022 10:17:48 12/03/2022 12:03:35 Irregular periods 14226421 N92.6 reviewed updated pelvic u/spt would like to discuss other BC optionsall BC options reviewedde sires IUD removal, would like to start a POPr/b/a discusseds he is going to RTC for IUD removal Time spent in visit is a total of 15 mins with at least 50% of visit consisting of counseling and review of plan of care. Contracept ion care management [id number] Z30.9 [id number] Yoselyn Lopez CORINNA [facility] [address],[place] [address] 12/11/2022 11:22:51 12/11/2022 13:56:31 Screening procedure 79085570 Z13.9 Contracept ion care management 059213551 Z30.9 IUD removed (see procedure note) Discussed all control options in great detail. Pt would like to start POP. She is aware of the risks and benefits. She has contraindi cations to use of OCP or other estrogen containing hormonal therapy. Pt will start her pills on the first friday following the start of her period. She is aware it is not effective for control the first month. She is also aware of the importance of taking at the same time every day. Encouraged use of condoms as the pill does not protect against STD's. Will return in 3 months for med check. Consent was read and signed. Pt verbalized understand ing.slynd sample given - [id number], 4rx sentRTC for med check in 4 months Time spent in visit is a total of 18 mins with at least 50% of visit consisting of counseling and review of plan of care. [id number] Yoselyn Lopez CORINNA [facility] [address],[place] [address] 04/21/2023 11:11:07 04/21/2023 11:43:16 Contraception care management 725565576 Z30.9 Feeling well since IUD removalalt ernative BC methods discussedw ould like to use condoms for nowencoura ged daily PNV if having unprotecte d ICRTC for WWE 11/2023 Time spent in visit is a total of 15 mins with at least 50% of visit consisting of counseling and review of plan of care. [id number] Yoselyn Lopez CORINNA [facility] [address],[place] [address] 10/07/2023 14:12:50 10/07/2023 15:17:19 Contraception care management [id number] Z30.9 All BC options discussed Discussed all control options in great detail. Pt would like to start POP. She is aware of the risks and benefits. She has contraindi cations to use of OCP or other estrogen containing hormonal therapy. She is aware it is not effective for control the first month. She is also aware of the importance of taking at the same time every day. Encouraged use of condoms as the pill does not protect against STI's. Will return in 3 -4 months for med check. Pt verbalized understand ingUPT (+) today - s/p EAB 09/04/23c g ordered, if (+) will repeat to ensure trending down/follo w to negonce confirmed bhcg is trending down, can start slynd Time spent in visit is a total of 25 mins with at least 50% of visit consisting of counseling and review of plan of care. Health Concerns Section Related Observation LastModified by Organization Detai ls LastModified Time None Recorded Concern Status LastModified by Organization Details LastModified Time None Recorded Advance Directives Directive None Recorded Payers Encounter Date Sequence Insurance Name Policy Number Policy To Covered Member ID To Member ID Guarantor Name 11/21/2022 1 [facility] [id number] Carter Garcia Thompson [id number] Matilde Thompson 12/03/2022 1 [facility] [id number] Carter Garcia Thompson [id number] Matilde Thompson 12/11/2022 1 [facility] [id number] Carter Garcia Donna [id number] [facility] 04/21/2023 1 [facility] [id number] Carter Garcia Donna [id number] [facility] 10/07/2023 2 [place] [facility] Matilde Thompson [id number] Matilde Thompson 10/07/2023 1 [facility] [id number] Carter Garcia Thompson [id number] Matilde Thompson Notes Date Note Type Note Provider Name and Address Organization Details Recorded Time 12/03/2022 text/html 27yop[age] for pelvic u/s f/uwould like to discuss IUD removal YARA Camilo [address], [place], [address], [facility] 12/03/2022 11:51:20 12/11/2022 text/html 27yop[age] for IUD removalwould like to do a pill for BC instead YARA Camilo [address], [place], [address], [facility] 12/11/2022 13:50:44 04/21/2023 text/html 27yopresents for f/us/p mirena IUD removed 12/11/22was going to start slynd but insurance does not cover itperiods have returned to monthly/normal - no issuesfeeling great since IUD removal, states she feels so much more like herselfdoes not want any BC currently, okay if occurs, using condoms currently YARA Camilo [address], [place], [address], [facility] 04/21/2023 11:41:47 10/07/2023 text/html 27yo [id number] ents for BC consults/p EAB 5/23/24, procedure done at around 7 weeks gestation would like to discuss BC optionsmedical hx: chrohn's, UC, GERD, anemia, anxiety denies any current AUB, pelvic pain, or abnormal vaginal d/c YARA Camilo [address], [place], [address], [facility] 10/07/2023 15:15:27 OBGyn Episode Ob Episode Information Episode Created Date Number of Fetuses Patient Bloodtype Patient rh Status Prepregnancy Weight lbs Domestic Partner Domestic Partner Phone Father Name Vending Machine Attendant Status 10/07/19 24 1 CLOSED Fetus Data First Name Last Name Admitted to NICU Weight (g) Sex Living Outcome Pediatric Complications Fetus ID Race Codes Race Delivery Type , Induced [id number] Scar Calculation Initial Scar Date Initial Exam Date Initial Exam Provider Initial Ultrasound Date Last Menstrual Period Date Ultra Sound Weeks Gestation 0 Eighteen To Twenty Week Scar Update Ultra Sound Date Fundal Height At Umbil Quickening Date Ultra Sound Latest Weeks Gestation Final Scar Confirmed By Final Scar Confirmed Date Final Scar Date Ultra Sound Latest Days Gestation 0 0 Menstrual History Last Menstrual Date Menses Monthly On Bcp Conception Prior Menses Frequency Hcg Plus Date Menarche Onset Age Delivery Information Delivery Date Delivery Type Labor Anesthesia Weeks Gestation Incision Type Labor Labor Length Hrs Delivered By Post Complications Tubal Sterilization Discharge Date Comments 4 Discharge Information Feeding Method Contraceptive Method Maternal HG B and HCT Levels
--- OUTSIDE RECORDS SUMMARY | 2024-05-12 03:28 | XMS_ITS | Referral Summary ---
Author Organization [facility] Address [address] [place] [address] Care Team Providers Care Cake Wrapper Name Role Phone Gold Nielsen MD Primary Care Provider [phone]- [phone] Source Comments [facility],non-owned Affiliates and Associated Physician Practices is amultiple site organization consisting of ambulatory clinics and hospital sitesin [place], [place], [place] and [place]. This disclosure is being madepursuant to the Care Everywhere program and may not contain all information available regarding this patient. Last updated 18.[facility] Allergies Active Allergy Reactions Criticality Noted Date [...] AFLURIA QUADRIVALENT; 6MO+), 0.5 ML (IIV4) 01/19/2014 Social History Tobacco Use Types Packs/Day Years [...] Oxygen Concentration 100% 05/27/2012 2 :30 PM PRIMER BOXER Weight 103.1 kg (227 lb 4.7 oz) 017 11:38 AM CDT Height 170 cm (5' 6.93) 01/29/2017 11: 38 AM CDT Body Mass Index 35.67 01/29/2017 11:38 AM CDT Functional Status Functional Status Response Date of [...] person have difficulty concentrating/remembering/making decisions? No 12/02/2013 Plan of Treatment Not on file Procedures Procedure Name Priority Date/Time Associated Diagnosis Comments HEPATITIS SCREEN ACUTE Routine 04/20/2014 11:45 AM PRIMER BOXER Colitis from Last 3 Months or Most Recently Relevant to Health Maintenance Results * HEPATITIS SCREEN ACUTE (04/20/2014 11:45 AM PRIMER BOXER) HAV Antibody IgM Non Reactive Non Reactive 04/22/2014 8:50 AM [facility] HBsAg Non Reactive Non Reactive 04/22/2014 8:50 AM [facility] HBsAb Non Reactive Non Reactive 04/22/2014 8:50 AM [facility] HBc Antibody IgM Non Reactive Non Reactive 04/22/2014 8:50 AM [facility] HCV Antibody Screen Non Reactive Non Reactive 04/22/2014 8:50 AM [facility] Blood BLOOD SPECIMEN / Unknown 04/20/2014 11:45 AM PRIMER BOXER 04/20/2014 12:19 PM PR[facility]ER BOXER Narrative [facility] - 04/22/2014 8:50 AM PRIMER BOXER Nonreactive - Antibodies to HCV were not detected, result does not exclude early acute HCV infection. Nonreactive - Antibodies to HCV were not detected, result does not exclude early acute HCV infection. Luz Maria Sanchez MD LAB - CHEMISTRY [facility] Organization Address City/State/[facility] Co de Phone Number [facility] [address] [place] [address] from Last 3 Months or Most Recently Relevant to Health Maintenance Care Teams Cake Wrapper Relationship Specialty Start Date End Date Gold Nielsen MD [address] [place] [address] PCP - General Family Medicine 05/13/12
--- OUTSIDE RECORDS SUMMARY | 2024-05-12 03:28 | XMS_ITS | Clinical Summary ---
Author Organization [facility] Address [address] [place] [address] Care Team Providers Care Hand Tennis Ball Coverer Name Role Phone Gold Nielsen MD Primary Care Provider [phone]- [phone] Allergies Active Allergy Reactions Criticality Noted Date Comments Amoxicillin Rash Low 05/14/2012 Penicillins Rash Low 05/14/2012 Medications esomeprazole (NexIUM) 20 mg Capsule, Delayed Release(E.C.) Take 20 mg by mouth daily before breakfast. Active ALPRAZolam (XANAX) 1 mg tablet Take 1 mg by mouth nightly as needed for Anxiety (does take 1/2 pill when necessary). Active sodium chloride 0.9% Parenteral Solution 250 mL with inFLIXimab 100 mg Recon Soln Inject by intraveous injection one time only. Active norethindrone-e thin estradiol (PIRMELLA) 1-35 mg-mcg tablet Take 1 Tablet by mouth daily. Active sertraline (ZOLOFT) 100 mg tablet Take 100 mg by mouth daily. Active Saccharomyces boulardii (FLORASTOR) 250 mg Capsule Take 250 mg by mouth daily. Active inFLIXimab (REMICADE) 100 mg Recon Soln 900mg IV Q 6 weeks 7 Active loratadine (CLARITIN) 10 mg tablet Take 10 mg by mouth. Active raNITIdine (ZANTAC) 150 mg tablet Take 150 mg by mouth. 6 Active ascorbic acid, vitamin C, (VITAMIN C) 500 mg tablet TAKE 1 TABLET BY MOUTH EVERY DAY 2 9 Active famotidine (PEPCID) 20 mg tablet TAKE 1 TABLET BY MOUTH EVERY DAY 0 8 Active ondansetron (ZOFRAN ODT) 4 mg Tablet, Rapid Dissolve DISSOLVE 1 TABLET ON TONGUE EVERY 6 TO 8 HOURS NEEDED FOR NAUSEA 0 8 Active ferrous sulfate 325 mg (65 mg iron) tablet Take 325 mg by mouth daily. Active Active Problems Problem Noted Date Diagnosed Date Tobacco use 05/07/2017 Crohn's disease without complication 01/30/2017 Family History Relation Name Status Comments Brother Alive Father Alive Mother Alive Social History Tobacco Use Types Packs/Day Years Used Date Smoking Tobacco: Every Day Cigarettes 1 3 Started: 01/06/2014; Last attempted to quit: 01/06/2017 Smokeless Tobacco: Never Alcohol Use Standard Drinks/Week Comments Yes 2 (1 standard drink = 0.6 oz pur e alcohol) Whiskey Comments No Sex and Gender Information Value Date Recorded Sex Assigned at Not on file Legal Sex Female 9:25 AM CDT Gender Identity Not on file Sexual Orientation Not on file Occupation Industry Job Start Date Job End Date student Not on file Not on file Not on file Last Filed Vital Signs Vital Sign Reading Time Taken Comments Blood Pressure 100/78 05/14/2018 10:06 AM PROFESSIONAL HEALTHCARE REPRESENTATIVE Pulse 102 05/14/2018 10:06 AM PROFESSIONAL HEALTHCARE REPRESENTATIVE Temperature 36.8 ??C (98.2 ??F) 05/14/2018 10:[address] Respiratory Rate 18 10/22/2017 10:57 AM CDT Oxygen Saturation 98% 05/14/2018 10:06 AM PROFESSIONAL HEALTHCARE REPRESENTATIVE Inhaled Oxygen Concentration - - Weight 99.4 kg (219 lb 1.6 oz) 05/14/2018 10:06 AM PROFESSIONAL HEALTHCARE REPRESENTATIVE Height 170.2 cm (5' 7) 05/14/2018 10:06 AM PROFESSIONAL HEALTHCARE REPRESENTATIVE Body Mass Index 34.32 05/14/2018 10:06 AM PROFESSIONAL HEALTHCARE REPRESENTATIVE Plan of Treatment Health Maintenance Due Date Last Done Comments PNEUMOCOCCAL VACCINE 0-64 YEARS (1 of 2 - PCV) 004 HPV VACCINES (1 - 3-dose series) 2012 DTAP/TDAP/TD VACCINES (1 - Tdap) 2016 HEPATITIS B VACCINES (1 of 3 - 19+ 3-dose series) 10/12 CERVICAL CANCER SCREENING 2018 INFLUENZA VACCINE (#1) 2023 01/19/2014 Insurance [facility] [id number] Care Teams Hand Tennis Ball Coverer Relationship Specialty Start Date End Date Gold Nielsen MD PCP - General Family Practice 01/30/17
[2024-05-12 10:22] VITALS: BP 129/86; PULSE 86; RESP 16; TEMP 36.3; O2SAT 100
[2024-05-12 10:28] LABS: BEDSIDEPREGUCG Negative (Negative)
[2024-05-12] MEDS: LACTATED RINGERS 1,000 ML 150 ML IV CONT (10:38)
--- NOTE | 2024-05-12 10:48 | WPDANESEPPF ---
Anes - Initial Pre Proc Eval Procedure: Operation Date: 05/12/24 11:00 Proposed Procedures p Colonoscopy - Cory Hernandez MD Date/Time: 05/12/24 10:48 Surgeon: Cory Hernandez MD Pre Op Diagnosis: Ulcerative colitis Patient Data Age: 28 Gender: F Height: 1.7 m Weight: 103.4 kg Last Vital Signs Temp 36.3 C L 05/12/24 10:22 Pulse 86 05/12/24 10:22 Resp 16 05/12/24 10:22 BP 129/86 05/12/24 10:22 Pulse Ox 100 05/12/24 10:22 O2 Del Method Room Air 05/12/24 10:22 Allergies Allergy/AdvReac Type Severity Reaction Status Date / Time amoxicillin Allergy Unknown Rash Verified 05/07/24 10:49 Penicillins Allergy Unknown rash Verified 05/07/24 10:49 Home Medications ?Medication ?Instructions ?Recorded ?Confirmed ?Type esomeprazole magnesium 20 mg 20 mg PO DAILY PRN REFLUX 06/12/22 05/12/24 History capsule,delayed release (Nexium) drospirenone (contraceptive) 4 mg 1 tablet PO DAILY 12/01/23 05/12/24 History (28) tablet (Slynd) mesalamine 1.2 gram tablet,delayed See Rx Instructions .Route 12/16/23 05/12/24 Rx release .COMPLEX #120 tabs azathioprine 50 mg tablet 150 mg (3 x 50 mg) PO DAILY #270 03/26/24 05/12/24 Rx tabs cephalexin 500 mg capsule 500 mg PO Q6H 7 days #28 caps 05/07/24 05/12/24 Rx lhvgotsnonlq-So-djyr-minerals 1 tablet PO DAILY 05/07/24 05/12/24 History Laboratory Tests 05/12/24 10:22 POC Urine HCG, Qual Negative (Negative) Patient hx anesthesia problems: none Family hx anesthesia problems: none Results Review: All pre-operative results and documents have been reviewed as part of the pre-operative evaluation. [facility] Past Medical History Medical History GERD (gastroesophageal reflux disease) Anemia Smoker Obesity Ulcerative colitis Family History Family History Other Depression Hypertension Malignant neoplasm of prostate Social History Social History Smoking packs per day: 1 Smoking cigarettes per day: 20.0 Years smoked: 6 Smoking pack-years: 6.00 Smoking status: Current every day smoker Tobacco type: cigarettes and e-cigarettes/vaping Alcohol intake: never Substance use: never Substance use type: does not use Lack of Transportation: No Lack of Food: Never True Current Housing: I Have Housing Concerned About Future Housing: No Difficulty Paying Gas/Electric Bills: No Difficulty Paying for Meds: No Currently Unemployed: YES Education: High School Diploma/GED Difficulty w/ Childcare or Family Care: No Living arrangements: with family Spiritual care concerns: No Anes - Eval Final PreProcedure Day of Procedure 05/12/24 10:48 Patient weight: obese Heart: regular rate and rhythm Lungs: clear to auscultation Airway: Mallampati scale class II Neurological: alert and oriented Last oral intake: >/= 8 hours ASA classification: III Emergent: no Anesthetic plan: proceed Anesthesia type and monitoring: general GIVS and standard monitoring Results Review: All pre-operative results and documents have been reviewed as part of the pre-operative evaluation. Informed Consent: The patient's anesthetic plan and its attendant risks and benefits were discussed with the patient/family/POA. Questions were solicited and answers provided to the satisfaction of the patient/family/POA.
--- NOTE | 2024-05-12 11:17 | P.HP_ITS ---
H&P: HPI History of Present Illness Date/Time: 05/12/24 11:17 Chief Complaint: Ulcerative colitis in remission. Narrative: The patient has a diagnosis of ulcerative colitis since 2012. She is currently well controlled on azathioprine and mesalamine. She is here for her surveillance colonoscopy. Review of Systems Review of Systems: All systems reviewed & are unremarkable except as noted in HPI and below PMFSH Past Medical History Medical History GERD (gastroesophageal reflux disease) Anemia Smoker Obesity Ulcerative colitis Family History Family History Other Depression Hypertension Malignant neoplasm of prostate Social History Social History Smoking packs per day: 1 Smoking cigarettes per day: 20.0 Years smoked: 6 Smoking pack-years: 6.00 Smoking status: Current every day smoker Tobacco type: cigarettes and e-cigarettes/vaping Alcohol intake: never Substance use: never Substance use type: does not use Lack of Transportation: No Lack of Food: Never True Current Housing: I Have Housing Concerned About Future Housing: No Difficulty Paying Gas/Electric Bills: No Difficulty Paying for Meds: No Currently Unemployed: YES Education: High School Diploma/GED Difficulty w/ Childcare or Family Care: No Living arrangements: with family Spiritual care concerns: No Meds Home Medications and Allergies Home Medications ?Medication ?Instructions ?Recorded ?Confirmed ?Type esomeprazole magnesium 20 mg 20 mg PO DAILY PRN REFLUX 06/12/22 05/12/24 History capsule,delayed release (Nexium) drospirenone (contraceptive) 4 mg 1 tablet PO DAILY 12/01/23 05/12/24 History (28) tablet (Slynd) mesalamine 1.2 gram tablet,delayed See Rx Instructions .Route 12/16/23 05/12/24 Rx release .COMPLEX #120 tabs azathioprine 50 mg tablet 150 mg (3 x 50 mg) PO DAILY #270 03/26/24 05/12/24 Rx tabs cephalexin 500 mg capsule 500 mg PO Q6H 7 days #28 caps 05/07/24 05/12/24 Rx gyryyoemyjvk-Wd-kulh-minerals 1 tablet PO DAILY 05/07/24 05/12/24 History Allergies Allergy/AdvReac Type Severity Reaction Status Date / Time amoxicillin Allergy Unknown Rash Verified 05/07/24 10:49 Penicillins Allergy Unknown rash Verified 05/07/24 10:49 Vital Signs Vital Signs - 24 hr 05/12/24 10:22 Temperature 97.4 F L Pulse Rate 86 Respiratory Rate 16 Blood Pressure 129/86 Pulse Oximetry 100 Oxygen Delivery Room Air Exam Const: General: cooperative and healthy appearing Resp: Effort & Inspection: normal respiratory effort and able to speak in com plete sentences Auscultation: clear to auscultation bilaterally Cardio: Rate: regular rate Rhythm: regular rhythm GI: Inspection: normal to inspection GI Palp: No No hepatosplenomegaly present Auscultation: normal bowel sounds Rectal Exam: deferred Skin: General skin exam: normal color Psych: Appearance: grossly normal Mental Status: mental status grossly normal Assessment and Plan Assessment and plan (1) Ulcerative colitis: Code(s): K51.90 - Ulcerative colitis, unspecified, without complications Status: Acute Assessment and Plan: The patient is deemed a good candidate for the procedure. Consent signed. Will proceed.
--- NOTE | 2024-05-12 11:35 | S_PTH ---
PATIENT: Matilde Thompson LOC: [facility] U#:[id number] AGE/SX: 28/F ROOM: RE05/12/[address]: Cory Hernandez MD : 1995 BED: DIS: 05/12/2024 SPEC #: [id number] RECD: 05/12/24 13:35 STATUS: YNES REQ #: [id number] SAPNA: 05/12/24 11:[address]: Cory Hernandez DEPT: [facility] Surgical RECD BY: Sanam Layne ENTERED: 05/12/24 13:35 SP TYPE: Surgical OTHR DR: Gold Neilsen MD Tissues: A - Colon Polypectomy B - Colon Biopsy Procedures: Hematoxylin and Eosin Stain Gross and Microscopic Level 4
[2024-05-12 11:43] VITALS: BP 87/46; PULSE 90; RESP 19; O2SAT 100
[2024-05-12 11:53] VITALS: BP 102/57; PULSE 80; RESP 17; O2SAT 100
[2024-05-12 12:03] VITALS: BP 126/93; PULSE 77; RESP 16; O2SAT 100
== END 2024-05-12 12:16 | disposition home or self-care (01) ==
PROVIDERS: Anesthesiology; PCP Family Medicine; Referring Provider Nurse Practitioner Family; Visit Provider Internal Medicine Gastroenterology
PROC: 0DJD8ZZ Inspection of Lower Intestinal Tract, Via Natural or Artificial Opening Endoscopic (ICD-10-PCS; CPT 45378; principal; 2024-05-12 11:00)
DX: Z09 Encounter for follow-up examination after completed treatment for conditions other than malignant neoplasm (principal); K52.89 Other specified noninfective gastroenteritis and colitis; K51.40 Inflammatory polyps of colon without complications; K21.9 Gastro-esophageal reflux disease without esophagitis; D64.9 Anemia, unspecified; F17.210 Nicotine dependence, cigarettes, uncomplicated; F17.290 Nicotine dependence, other tobacco product, uncomplicated; E66.9 Obesity, unspecified; Z68.35 Body mass index [BMI] 35.0-35.9, adult; Z87.19 Personal history of other diseases of the digestive system; Z80.42 Family history of malignant neoplasm of prostate
CPT/HCPCS: 45385; 45380; 88305; J2003; J2371; J2704; J7120

== ENCOUNTER 2024-08-26 14:43 | Outpatient (CLI) | payer OTHER, SELFPAY ==
--- OUTSIDE RECORDS SUMMARY | 2024-08-26 14:49 | XMS_ITS | Data Portability ---
Author Organization [facility] [place] Address [address] [place] [place] [address] Care Team Providers Care Fitness Services Manager Name Role Phone DIA NIELSEN Primary Care Provider Assessment No assessment recorded. Plan of Treatment Reminders Order Date Submit Date Provider Last Modified By Organization Details Last Modified Time Details Appointments None recorded. Lab beta-HCG, quantitativ e, serum or plasma 2023 024 [facility] (Lab), [address] [facility], [place], [address], 4 03:18:11 test, urine 2023 024 [facility] [address], [address], [place], [address], 4 15:14:52 test, urine 2022 023 [facility], [address], [place], [address], 3 11:59:53 Referral None recorded. Procedures None recorded. Surgeries None recorded. Imaging US, pelvis 2022 023 [email or web address] [facility], [address], [place], [address], 3 22:34:31 US, transvagina l 2022 023 [email or web address] [facility], [address], [place], [address], 3 22:34:31 Medication Orders Slynd 4 mg (28) tablet 2022 023 [facility]/Pharmacy #[id number], [address] [place], [address], 3 12:06:43 Patient TargetsNo targets recorded. Patient [...] as clini purnima flores nted. Not Available [facility] (Lab) [address] , [place], [address], 11/17/2022 10:53:37 11/15/19 23 11/14/2022 TRICH OMONA S VAGIN DARRICK (RRNA ) trichomonas vaginalis ribosomal RNA (rrna) Negati ve negati ve Not Available [facility] (Lab) [address], [place], [address], 11/17/2022 10:53:37 11/15/19 23 11/14/2022 CT/GC (ANJALI) , THINP REP VIAL chlamydia trachomatis, PCR Negati ve negati ve Not Available [facility] (Lab) [address], [place], [address], 11/17/2022 10:53:38 11/15/19 23 11/14/2022 CT/GC (ANJALI) , THINP REP VIAL neisseria gonorrhoeae, PCR Negati ve negati ve Not Available [facility] (Lab) [address] , [place], [address], 11/17/2022 10:53:38 12/12/19 23 12/11/2022 pregn damon test, urine HCG negati ve Not Available [facility] [address], [place], [address], 12/11/2022 11:56:13 10/07/19 24 10/07/2023 BHCG, QUANT [...] Weeks 8,099 - 58,17 6 Not Available [facility] (Lab) [address], [place], [address], 10/08/2023 03:18:11 10/07/19 24 10/07/2023 pregn damon test, urine HCG positi ve Not Available [facility] [address], [place], [address], 10/07/2023 15:14:42 10/10/19 24 10/10/2023 BHCG, QUANT [...] Weeks 8,099 - 58,17 6 Not Available [facility] (Lab) [address] [facility], [place], [address], 10/11/2023 07:18:39 10/24/19 24 10/24/2023 BHCG, QUANT [...] Weeks 8,099 - 58,17 6 Not Available [facility] (Lab) [address], [place], [address], 2023 07:12:15 11/22/19 23 11/21/2022 , pelvi s No observ ation record ed. [email or web address] [facility] [address], [place], [address], 11/21/2022 18:55:26 11/22/19 23 11/21/2022 US, trans vagin al No observ ation record ed. [email or web address], [place], [address], 11/21/2022 18:55:19 11/22/19 23 11/21/2022 US, pelvi s No observ ation record ed. naida Childs [address], [place], [address], 12/03/2022 11:51:35 Result Notes None recorded. Procedures Surgical History Date Name Laterality Status Provider Name and Address Organization Details Recorded Time 09/04/19 24 termination of completed YARA Camilo [address], [place], [address], [facility] 10/07/2023 14:56:11 12/12/19 23 IUD Removal completed YARA Camilo [address], [place], [address], [facility] 12/11/2022 12:43:36 11/15/19 23 Date of Last Pap Smear completed Raqueldavid Chen [facility] 05/01/2023 13:38:10 06/26/19 23 Date of Last Colonoscopy completed Dee Dee Vargas [facility] 12/11/2022 11:29:39 04/14/19 23 Colonoscopy completed Raquel [facility] 04/21/2023 11:30:23 04/14/19 17 Colonoscopy completed [facility] 04/21/2023 11:30:18 04/14/19 15 Colonoscopy completed Raquel [facility] 04/21/2023 11:30:15 Imaging Results Imaging Date Name Status LastModified by Organization Details LastModified Time 11/21/2022 US, pelvis completed [email or web address] [facility] [address], [place], [address], 11/21/2022 18:55:26 11/21/2022 US, transvaginal [email or web address] [address], [place], [address], 11/21/2022 18:55:19 11/21/2022 US, pelvis completed naida Childs [address], [place], [address], 12/03/2022 11:51:35 Procedure Notes None recorded. Medical Equipment None Reported. Allergies Allergen ID Allergen Name Allergen Category Reaction Reaction Severity Criticality Documentation Date Start Date Code Code System Note Provider Name and Address Organization Details Recorded Time Product containin g penicilli n (product) medicatio n Not available Not available Not available 11/14/2022 40875 [id number] SNOMED Dee Dee Oz r [facility] [place] - [facility] 14:45:37 Medications Name Sig Start Date Stop Date Status Note LastModified by Organization Details LastModified Time Mirena 21 mcg/24 hr (up to 8 years) 52 mg intrauter ine device 12/11 completed Prescrib ed Elsewher e: Yes Loca tion: [facility] M odify By: [email or web address] E ncounter DateTime [...] Prescrib ed Elsewher e: Yes Loca tion: [facility] M odify By: [email or web address] Rob pedersen DateTime [...] Prescrib felecia French e: Yes [facility] By: austin blanco DateTime : 09/02/19 03:45:00 [...] Updated DateTime 12/03/2022 170.18 cm 34.6 kg/m2 108244.9 1 g 119 mm[Hg] 78 mm[Hg] Alisa Sveta [facility] 3 10:29:09 Date Recorded Body height Body mass index (BMI) Body weight Systolic blood pressure Diastolic blood pressure Provider Name and Address Organization Details Last Updated DateTime 12/11/2022 170.18 cm 34.6 kg/m2 789978.9 1 g 120 mm[Hg] 78 mm[Hg] Dee Dee Vargas [facility] 3 11:29:34 Date Recorded Body height Body mass index (BMI) Body weight Systolic blood pressure Diastolic blood pressure Provider Name and Address Organization Details Last Updated DateTime 04/21/2023 170.18 cm 35.1 kg/m2 095977.6 9 g 114 mm[Hg] 74 mm[Hg] Raquel Chen [facility] 4 11:26:46 Date Recorded Body height Body mass index (BMI) Body weight Systolic blood pressure Diastolic blood pressure Provider Name and Address Organization Details Last Updated DateTime 10/07/2023 170.18 cm 35.1 kg/m2 419111.6 9 g 118 mm[Hg] 79 mm[Hg] Meagan Orosco [facility] 4 14:22:16 Social History Question Answer Notes LastModified by Organizat ion Details LastModified Time Tobacco Smoking Status Current Every Day Smoker Raquel bonner, [facility] 04/21/2023 11:27:01 Are You Blind Or Do You Have [...] Type Of Diet Are You Following? REGULAR [email or web address] Information not available 04/21/2023 What Is The Highest Grade Or Level Of School You Have Completed Or The Highest Degree You Have Received? [id number] Information not available 12/11/2022 Are There Any Guns Present In Your Home? No Information not available 12/11/2022 Do You Use Protection During Sex? No Information not available 12/11/2022 Do You Use Your Seat Belt Or Car Seat Routinely? Yes [email or web address] Information not available 04/21/2023 Do You Have Smoke And Carbon Monoxide Detectors In Your Home? No Information not available 12/11/2022 At What Age Did You Start Smoking Tobacco? 17 Information not available 12/11/2022 How Much Tobacco Do You Smoke? 1 PPD Information not available 12/11/2022 Do You Use Sunscreen Routinely? No Information not available 12/11/2022 How Many Years Have You Smoked Tobacco? 10 Information not available 12/11/2022 Have You Used IV Drugs? No Information not available 12/11/2022 Do You Have Difficulty Walking Or Climbing Stairs? No Information not available 04/21/2023 Sex: Unknown Functional Status Question Answer Note LastModified by Organizat ion Details LastModified Time Do you use any illicit or recreational drugs? No Information not available 12/11/2022 What is your level of alcohol consumption? None Information not available 11/14/2022 Are you able to walk? YESWOREST Information not available 11/14/2022 Are you able to care for yourself? Yes [email or web address] Information n ot available 04/21/2023 What is your occupation? Unemployed Information not available 12/11/2022 Do you have difficulty dressing or bathing? No [email or web address] Information not available 04/21/2023 What is your exercise level? Occasional Information not available 12/11/2022 Mental Status Question Answer Note LastModified by Organization D etails LastModified Time Do you feel stressed (tense, restless, nervous, or anxious, or unable to sleep at night)? [id number] Information not available 12/11/2022 Family History Relationship Description Onset Age of this Age Resolved Age Notes LastModified by Organization Details LastModified Time Maternal Uncle Diabetes mellitus [email or web address] Not available 06/2022 14:48:15 Maternal Uncle Mental disorder [email or web address] Not available 05/01 13:45:57 Maternal Uncle Essential hypertension [email or web address] Not available 14:13:02 Mother Essential hypertension [email or web address] Not available 14:13:02 Mother Disorder of thyroid gland [email or web address] Not available 06/2022 14:49:19 Mother Mental disorder [email or web address] Not available 05/01 13:46:06 Father Essential hypertension [email or web address] Not available 14:13:02 Father Mental disorder [email or web address] Not available 05/01 13:35:42 Maternal Aunt Mental disorder [email or web address] Not available 05/01 13:35:42 Maternal Aunt Disorder of thyroid gland Not available 05/01 13:35:53 Brother Mental disorder Not available 05/01 13:35:42 Maternal Grandmother Hypercholest erolemia [email or web address] Not available 05/01 13:45:46 Maternal Grandmother Disorder of thyroid gland [email or web address] Not available 05/01 13:47:49 Maternal Grandmother Malignant neoplasm of ovary [email or web address] Not available 05/01 13:49:06 Maternal Grandmother Malignant neoplasm of uterus [email or web address] Not available 05/01 13:49:29 Paternal Grandfather Essential hypertension Not available 14:13:02 Maternal Grandfather Essential hypertension [email or web address] Not available 14:13:02 Notes:Brother: psychiatric d isease [...] SNOMED-CT Code Diagnosis ICD10 Code Diagnosis Note [id number] YARA Camilo [facility] [address] [address] 11/14/2022 14:08:34 11/14/2022 15:13:40 Gynecologic examination 17304624 Z01.419 Take Calcium with Vitamin D 1200mg [...] paper copy of today's plan if desired. WWEB - Mirena IUD, inserted 08/11/2018p eriods longer [...] review of plan of care. Irregular periods 775182 07 N92.6 Contracept ion care management 069246368 Z30.9 [id number] Frandy Gu MD [facility] [address],[place] [address] 11/21/2022 15:35:45 11/21/2022 16:15:49 Irregular periods 20396862 N92.6 [id number] Yoselyn Lopez CORINNA [facility] [address],[place] [address] 12/03/2022 10:17:48 12/03/2022 12:03:35 Irregular periods 24204614 N92.6 reviewed updated pelvic u/spt would like to discuss other BC optionsall BC options reviewedde sires IUD removal, would like to start a POPr/b/a discusseds he is going to RTC for IUD removal Time spent in visit is a total of 15 mins with at least 50% of visit consisting of counseling and review of plan of care. Contracept ion care management 970939851 Z30.9 [id number] YARA Camilo [facility] [address],[place] [address] 12/11/2022 11:22:51 12/11/2022 13:56:31 Screening procedure 21182931 Z13.9 Contracept ion care management 136165423 Z30.9 IUD removed (see procedure note) Discussed [...] Pt verbalized understand ing.slynd sample given - [id number], [facility] Time spent in visit is a total of 18 mins with at least 50% of visit consisting of counseling and review of plan of care. [id number] YARA Camilo [facility] [address],[place] [address] 04/21/2023 11:11:07 04/21/2023 11:43:16 Contraception care management 031828788 Z30.9 Feeling well since IUD removalalt ernative BC methods discussedw ould like to use condoms for nowencoura ged daily PNV if having unprotecte d ICRTC for WWE 11/2023 Time spent in visit is a total of 15 mins with at least 50% of visit consisting of counseling and review of plan of care. [id number] YARA Camilo [facility] [address] [address] 10/07/2023 14:12:50 10/07/2023 15:17:19 Contraception care management 512633402 Z30.9 All BC options discussed Discussed all [...] understand ingUPT (+) today - s/p EAB 09/04/23bhc g ordered, if (+) will repeat to [...] To Member ID Guarantor Name 11/21/2022 1 [facility] [id number] Carter Garcia Donna [id number] [facility] 12/03/2022 1 [facility] [id number] Carter Garcia Thayer [id number] Matilde Thayer 12/11/2022 1 [facility] [id number] Carter Garcia Thayer [id number] [facility] 04/21/2023 1 [facility] [id number] Carter Garcia Donna [id number] [facility] 10/07/2023 2 MEDICAID-ID: [facility] [id number] [facility] 10/07/2023 1 [facility] [id number] Carter Garcia Thayer [id number] [facility] Notes Date Note Type Note Provider Name and Address Organization Details Recorded Time 12/03/2022 text/html 27yop[age] for pelvic u/s f/uwould like to discuss IUD removal YARA Camilo [address], [place], [address], [facility] 12/03/2022 11:51:20 12/11/2022 text/html 27yopresents for IUD removalwould like to do a pill for BC instead YARA Camilo [address], [place], [address], [facility] 12/11/2022 13:50:44 04/21/2023 text/html 27yopresents for f/us/p mirena IUD removed 12/11/22was going to start slynd but insurance does not cover itperiods have returned to monthly/normal - no issuesfeeling great since IUD removal, states she feels so much more like herselfdoes not want any BC currently, okay if occurs, using condoms currently YARA Camilo [address], [place], [address], [facility] 04/21/2023 11:41:47 10/07/2023 text/html 27yo [id number] ents for BC consults/p EAB 09/04/23, procedure done at around 7 weeks gestation would like to discuss BC optionsmedical hx: chrohn's, UC, GERD, anemia, anxiety denies any current AUB, pelvic pain, or abnormal vaginal d/c Yoselyn Lopez, YARA [address], [place], [address], [facility] 10/07/2023 15:15:27 OBGyn Episode [id number]|2024-08-26 14:49:00|2024-08-26 14:49:00|XMS_ITS|BKG DAEMON|External Medical Summaries|[id number]|" Encounter Summary Created on: August 26, 2024 Matilde Thompson : 1995 Sex: Female Author Organization [facility] Address [address] [place] [address] Care Team Providers Care Fitness Services Manager Name Role Phone Dia Nielsen MD Primary Care Provider [phone]- [phone] Encounter Details Date Type Department Care Team (Late st Contact Info) Description 01/01/2016 Telephone [facility] Pediatrics - GI [address] [place] [address] Emily Alexander MD [address] [place] [address] Social History Tobacco Use Types Packs/Day Years Used Date Smoking Tobacco: Never Alcohol Use Standard Drinks/Week Comments Not Asked 0 (1 standard drink = 0.6 oz pur e alcohol) Comments No Sex and Gender Information Value Date Recorded Sex Assigned at Not on file 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 Answer Date of Assessment Author No 12/02/2013 12:51 PM CDT Gertrudis Jones RN * Is person blind or have serious difficulty seeing? Answer Date of Assessment Author No 12/02/2013 12:51 PM CDT Gertrudis Jones RN * Does person have serious difficulty walking/climbing stairs? Answer Date of Assessment Author No 12/02/2013 12:51 PM CDT Gertrudis Jones RN * Does person have difficulty dressing/bathing? Answer Date of Assessment Author No 12/02/2013 12:51 PM CDT Gertrudis Jones RN * Does person have difficulty doing errands alone? Answer Date of Assessment Author No 12/02/2013 12:51 PM CDT Gertrudis Jones RN documented as of this encounter Mental Status * Does person have difficulty concentrating/remembering/making decisions? Answer Entry Date Author No 12/02/2013 12:51 PM CDT Gertrudis Jones RN documented in this encounter Miscellaneous Notes * Telephone Encounter [...] on filedocumented in this encounter Care Teams Fitness Services Manager Relationship Specialty Start Date End Date Dia Nielsen MD [address] [place] [address] PCP - General Family Medicine 05/13/12 documented as of this encounter "
--- OUTSIDE RECORDS SUMMARY | 2024-08-26 14:49 | XMS_ITS | Encounter Summary ---
Author Organization [facility] Address [address] [facility] [place] [address] Care Team Providers Care Sounding Device Operator Name Role Phone Gold Nielsen MD Primary Care Provider [phone]- [phone] Reason for Visit * Reason Onset Date Comments Question 11/20/2016 Encounter Details Date Type Department Care Team (Late st Contact Info) Description 11/20/2016 Telephone [facility] - [address] [address] Luz Maria Sanchez MD [address] [place] [address] Question Social History Tobacco Use Types Packs/Day Years Used Date Smoking Tobacco: Never Alcohol Use Standard Drinks/Week Comments Not Asked 0 (1 standard drink = 0.6 oz pur e alcohol) Comments No Sex and Gender Information Value Date Recorded Sex Assigned at Not on file 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 Answer Date of Assessment Author No 12/02/2013 12:51 PM Gertrudis Smith RN * Is person blind or have [...] new information. * Telephone Encounter - Toma iDane RN - 11/20/2016 4:00 PM CDT Spoke [...] to set up Remicade at home with [facility]. Mom will discuss with Matilde and call [...] on filedocumented in this encounter Care Teams Sounding Device Operator Relationship Specialty Start Date End Date Gold Nielsen MD [address] [place] [phone] PCP - General Family Medicine 05/13/12 documented as of this encounter
--- OUTSIDE RECORDS SUMMARY | 2024-08-26 14:49 | XMS_ITS | Clinical Summary ---
Author Organization [facility] Address [address] [place] [address] Care Team Providers Care Chemical Analyst Name Role Phone Gold Nielsen MD Primary Care Provider +1- [phone] Allergies Active Allergy Reactions Criticality Noted Date [...] Comments Blood Pressure 100/78 05/14/2018 10:06 AM FOOD MANAGER Pulse 102 05/14/2018 10:06 AM FOOD MANAGER Temperature 36.8 C (98.2 F) 05/14/2018 10:06 AM FOOD MANAGER Respiratory Rate 18 10/22/2017 10:57 AM CDT Oxygen Saturation 98% 05/14/2018 10:06 AM FOOD MANAGER Inhaled Oxygen Concentration - - Weight 99.4 kg (219 lb 1.6 oz) 05/14/2018 10:06 AM FOOD MANAGER Height 170.2 cm (5' 7 ) 05/14/2018 10:06 AM FOOD MANAGER Body Mass Index 34.32 05/14/2018 10:06 AM FOOD MANAGER Plan of Treatment Health Maintenance Due Date Last Done Comments HPV VACCINES (1 - 3-dose series) 2012 DTAP/TDAP/TD VACCINES (1 - Tdap) 2016 HEPATITIS B VACCINES (1 of 3 - 19+ 3-dose series) 10/12 CERVICAL CANCER SCREENING 2018 HPV/Cotest (21-29) 2018 PAP SMEAR 2018 INFLUENZA VACCINE (#1) 2023 01/19/2014 Insurance [facility] [id number] Care Teams Chemical Analyst Relationship Specialty Start Date End Date Gold Nielsen MD PCP - General Family Practice 01/30/17
--- OUTSIDE RECORDS SUMMARY | 2024-08-26 14:49 | XMS_ITS | Encounter Summary ---
Author Organization [facility] Address [address] [facility] [place] [address] Care Team Providers Care Accountant Assistant Name Role Phone Gold Nielsen MD Primary Care Provider +1- [phone] Reason for Visit * Reason Onset Date Comments Question 03/01/2014 Encounter Details Date Type Department Care Team (Late st Contact Info) Description 03/01/2014 Telephone [facility] [place] [address] Luz Maria Sanchez MD [address] [place] [address] Question Social History Tobacco Use Types Packs/Day Years Used Date Smoking Tobacco: Never Alcohol Use Standard Drinks/Week Comments Not Asked 0 (1 standard drink = 0.6 oz pur e alcohol) Comments No Sex and Gender Information Value Date Recorded Sex Assigned at Not on file Legal Sex Female 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 Answer Entry Date Author No 12/02/2013 12:51 PM JOSSELINET Gertrudis Jones RN documented in this encounter Miscellaneous Notes * Telephone Encounter - Shyanne Kim RN - 03/02/2014 9:40 AM CST Per Oma in Financial Clearance ...Per Mera @ [facility] [id number] auth is not required for [id number]. Medical records need to be sent in with claim for [id number]. IT COORDINATOR * Telephone Encounter - Shyanne Kim RN - 03/02/2014 8:11 AM CST PA needed for Remicade. Information sent to DAG team. IT COORDINATOR * Telephone Encounter - Sana Hensley RN - 03/01/2014 2:15 PM PERMIT COORDINATOR Spoke to mother who states Matilde has a red sore throat and cold. Afebrile. Plan to reschedule remicade to next week. Transferred to appt line. IT COORDINATOR * Telephone Encounter - Ramona Hogan - 03/01/2014 11:30 AM CST Patient has remicade tomorrow, but has a bit of a head cold and sore throat, mom wondering if its ok for her to still come or do we need to wait? IT COORDINATOR documented in this encounter Plan of Treatment Not on file documented as of this encounter Visit Diagnoses Not on filedocumented in this encounter Care Teams Accountant Assistant Relationship Specialty Start Date End Date Gold Nielsen MD [address] [place] [phone] PCP - General Family Medicine 05/13/12 documented as of this encounter
--- OUTSIDE RECORDS SUMMARY | 2024-08-26 14:49 | XMS_ITS | Encounter Summary ---
Author Organization [facility] Address [address] [place] [address] Care Team Providers Care Senior Director Name Role Phone Gold Nielsen MD Primary Care Provider [phone]- [phone] Reason for Visit * Reason Onset Date Comments Scheduling 01/05/2015 Encounter Details Date Type Department Care Team (Late st Contact Info) Description 01/05/2015 Telephone [facility] - [address] [address] Luz Maria Sanchez MD [address] [place] [id number] Scheduling Social History Tobacco Use Types Packs/Day Years Used Date Smoking Tobacco: Never Alcohol Use Standard Drinks/Week Comments Not Asked 0 (1 standard drink = 0.6 oz pur e alcohol) Comments No Sex and Gender Information Value Date Recorded Sex Assigned at Not on file 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 [employer] ([place]) phone [phone] fax # [phone] * Telephone Encounter - Luz Maria Sanchez [...] colitis documented in this encounter Care Teams Senior Director Relationship Specialty Start Date End Date Gold Nielsen MD [address] [place] [phone] PCP - General Family Medicine 05/13/12 documented as of this encounter
--- OUTSIDE RECORDS SUMMARY | 2024-08-26 14:49 | XMS_ITS | Clinical Summary ---
Author Organization [facility] Address [address] [place] [address] Care Team Providers Care Network Operations Lead Name Role Phone Gold Nielsen MD Primary Care Provider [phone]- [phone] Source Comments [facility],non-owned Affiliates and Associated Physician Practices is amultiple site organization consisting of ambulatory clinics and hospital sitesin [place], [place], [place] and [place]. This disclosure is being madepursuant to the Care Everywhere program and may not contain all information available regarding this patient. Last updated 18.[facility] Allergies Active Allergy Reactions Criticality Noted Date Comments Amoxicillin Rash Low 05/14/2012 Penicillins Rash Low 05/14/2012 Medications * Be aware that medications may not be up to date on this document. Alwaysverify current medications with the patient. loratadine (CLARITIN) 10 MG tablet Take 10 mg by mouth once daily Active CYCLAFEM 1-35 MG-MCG tablet 6 6 Active ranitidine (ZANTAC) 150 MG tablet Take 1 Tab by mouth 2 times daily as needed for Heartburn 60 Tab 3 6 Active mupirocin (BACTROBAN) 2 % ointment Apply to affected area 2 times daily 22 g 7 Active inFLIXimab (REMICADE) injection 900mg IV Q 6 weeks 7 Active buPROPion SR 12hr (WELLBUTRIN-SR) 150 MG [...] iron supplementation when GI symptoms improve. Immunizations Immunization Administration Dates Next Due INFLUENZA VACCINE, QUADR. 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 Gender Identity Not on file Sexual Orientation Not on file Last Filed Vital Signs Vital Sign Reading Time Taken Comments Blood Pressure 114/62 01/29/2017 2:52 PM CDT Pulse 84 01/29/2017 2:52 PM CDT Temperature 36.7 C (98 F) 01/29/2017 11:38 AM CDT Respiratory Rate 24 01/29/2017 2:52 PM CDT Oxygen Saturation 100% 12/02/2013 12: 30 PM CDT Inhaled Oxygen Concentration 100% 05/27/2012 2 :30 PM ASSISTANT CASE MANAGER Weight 103.1 kg (227 lb 4.7 oz) 017 11:38 AM CDT Height 170 cm (5' 6.93 ) 01/29/2017 11: 38 AM CDT Body Mass Index 35.67 01/29/2017 11:38 AM CDT Plan of Treatment Health Maintenance Due Date Last Done Comments HIV SCREENING 2012 HPV VACCINE (1 - 3-dose series) 2012 DTAP/TDAP/TD VACCINES (1 - Tdap) 2016 HEPATITIS B VACCINE (1 of 3 - 19+ 3-dose series) 2016 COVID-19 VACCINE ( - 2023-2 5 season) 2023 DEPRESSION SCREENING 04/14/2024 INFLUENZA VACCINE (Season Ended) 2024 01/20/20 ZOSTER VACCINE (1 of 2) 10/26/2047 HEPATITIS C SCREENING Completed 04/20/2014 HIB VACCINE Aged Out No longer eligi ble based on patient's age to complete this topic MENINGOCOCCAL (Group B) VACC INE SHARED DECISION-MAKING Aged Out No longer eligibl e based on patient's age to complete this topic MENINGOCOCCAL GROUPS A/C/Y/W VACCINE Aged Out No longer eligible b ased on patient's age to complete this topic PNEUMOCOCCAL VACCINE Aged Out No long er eligible based on patient's age to complete this topic Procedures Procedure Name Priority Date/Time Associated Diagnosis Comments HEPATITIS SCREEN ACUTE Routine 04/20/2014 11:45 AM ASSISTANT CASE MANAGER Colitis from Last 3 Months or Most Recently Relevant to Health Maintenance Results * HEPATITIS SCREEN ACUTE (04/20/2014 11:45 AM ASSISTANT CASE MANAGER) HAV Antibody IgM Non Reactive Non Reactive 04/22/2014 8:50 AM ASSISTANT CASE MANAGER [facility] HBsAg Non Reactive Non Reactive 04/22/2014 8:50 AM [facility] HBsAb Non Reactive Non Reactive 04/22/2014 8:50 AM [facility] HBc Antibody IgM Non Reactive Non Reactive 04/22/2014 8:50 AM [facility] HCV Antibody Screen Non Reactive Non Reactive 04/22/2014 8:50 AM [facility] Blood BLOOD SPECIMEN / Unknown 04/20/2014 11:45 AM ASSISTANT CASE MANAGER 04/20/2014 12:19 PM ASSISTANT CASE MANAGER Narrative [facility] - 04/22/2014 8:50 AM ASSISTANT CASE MANAGER Nonreactive - Antibodies to HCV were not detected, result does not exclude early acute HCV infection. Nonreactive - Antibodies to HCV were not detected, result does not exclude early acute HCV infection. us Luz Maria Sanchez MD LAB - CHEMISTRY ORDERABLES Fin al Result [facility] [place] [address] from Last 3 Months or Most Recently Relevant to Health Maintenance Insurance [facility] Care Teams Network Operations Lead Relationship Specialty Start Date End Date Gold Nielsen MD [address] [place] [phone] PCP - General Family Medicine 05/13/12
[2024-08-26 19:11] LABS: Hematocrit 34.9 % (37.0-47.0); Hemoglobin 11.1 g/dL (12.0-15.0); Mean Corpuscular HGB Conc 31.8 g/dl (32-36); Mean Corpuscular Hemoglobin 31.4 pg (26-34); Mean Corpuscular Volume 98.6 fl (80-100); Mean Platelet Volume 9.7 fl (7.4-10.4); Platelet Count Result 349 k/mm3 (150-375); Red Blood Count 3.54 M/mm3 (4.2-5.4); White Blood Count 4.9 K/mm3 (4.5-10.0)
[2024-08-26 19:28] LABS: Alanine Aminotransferase 11 U/L (6-35); Albumin Level 4.1 g/dL (3.5-5.1); Alkaline Phosphatase 74 U/L (38-126); Anion Gap 10 mmol/L (4-12); Aspartate Amino Transferase 25 U/L (14-36); Bilirubin,Total 0.4 mg/dL (0.2-1.3); Blood Urea Nitrogen 7 mg/dL (7-17); CRP 1.9 mg/dL (<1.0); Carbon Dioxide 25 mmol/L (22-30); Chloride 106 mmol/L (98-107); Estimated Glomerular Filt Rate > 60; Glucose 95 mg/dL (65-110); Potassium 3.5 mmol/L (3.4-5.0); Sodium 141 mmol/L (137-145)
== END 2024-08-26 14:44 | disposition home or self-care (01) ==
LOC: ANHGOSHLAB 14:44
PROVIDERS: PCP Family Medicine; Visit Provider Nurse Practitioner Family
DX: K51.90 Ulcerative colitis, unspecified, without complications (principal); F17.200 Nicotine dependence, unspecified, uncomplicated
CPT/HCPCS: 36415; 80053; 85027; 86140